=== PATIENT | male | born 1965 | race Caucasian/White ===

== ENCOUNTER 2020-11-03 19:18 | Inpatient (IN) ==
--- NOTE | 2020-11-03 19:38 | Emergency Department Note ---
History of Present Illness General Chief Complaint: Altered Mental Status Stated Complaint: altered mental status Time Seen by Provider: 11/03/20 19:37 Source: patient Mode of arrival: ambulatory Limitations: no limitations History of Present Illness Provider complaint: weakness Onset (ago): week(s) 2 Severity: moderate Consistency of symptoms: getting worse Context: + trauma; no alcohol abuse, no drug abuse, no change in medication, no history of similar presentation, no recent fever, no liver disease or no seizure disorder Associated symptoms: + loss of appetite Treatments prior to arrival: none Home Medications Medication Instructions Recorded Confirmed Type No Known Home Medications 11/03/20 11/03/20 History Allergies Allergy/AdvReac Type Severity Reaction Status Date / Time Unable to Assess Allergy Unverified 11/03/20 20:04 Past Med/Surg History Medical History (Updated 11/04/20 @ 01:18 by Maged Schilling MD) No pertinent past medical history Surgical History (Updated 11/03/20 @ 19:56 by Maged Schilling MD) No pertinent past surgical history Social History (Updated 11/03/20 @ 19:56 by Maged Schilling MD) Smoking Status: Never smoker Second Hand Exposure: No; Do You Dip or Chew Tobacco: No; Hx Alcohol Use: No Hx Substance Use: No Director Of Clinical Education Required: No Beliefs That Will Affect Care: Adventism and Cultural Current Living Situation: Spouse and Family Feels Safe at Home: Yes Safety Concerns: Feels Safe At This Time Assistive Devices: None Review of Systems See HPI for pertinent positives & negatives. and A total of 10 systems reviewed and were otherwise negative Physical Exam Vital Signs Vital Signs - 24 hr 11/03/20 19:32 11/03/20 20:00 11/03/20 20:30 Temperature 37.0 C Temperature Source Oral Pulse Rate 82 78 80 Pulse Rate from SpO2 Sensor 79 80 Respiratory Rate 18 14 19 Blood Pressure 106/71 120/67 114/73 Blood Pressure Mean 82 84 86 Pulse Oximetry 99 99 99 Oxygen Delivery Method Room Air Sepsis Recent Fever Within 48 Hours No Sepsis New/Unexplained Change in Mental Status Yes Sepsis Action Taken by Nursing No Action Required 11/03/20 20:32 11/03/20 21:07 11/03/20 21:30 Temperature Temperature Source Pulse Rate 83 78 Pulse Rate from SpO2 Sensor 78 Respiratory Rate 18 Blood Pressure 108/66 Blood Pressure Mean 80 Pulse Oximetry 99 Oxygen Delivery Method Room Air Sepsis Recent Fever Within 48 Hours Sepsis New/Unexplained Change in Mental Status Sepsis Action Taken by Nursing 11/03/20 22:00 11/03/20 22:30 Temperature Temperature Source Pulse Rate 74 77 Pulse Rate from SpO2 Sensor 74 82 Respiratory Rate 21 26 H Blood Pressure 102/61 99/60 L Blood Pressure Mean 74 73 Pulse Oximetry 98 91 Oxygen Delivery Method Sepsis Recent Fever Within 48 Hours Sepsis New/Unexplained Change in Mental Status Sepsis Action Taken by Nursing GENERAL: Thin in appearance, fatigued in appearance, nontoxic. Bruising noted to the left side of the face. EYE EXAM: Normal conjunctiva. PERRL, no anisocoria and EOM's grossly intact w/o pain. No obvious periorbital edema or proptosis. Face: Age bruising to the left side of the face. Head: No pain to the crown or the occiput. NECK: Supple, no nuchal rigidity, no adenopathy, non-tender. No signs of meningismus. LUNGS: Clear to auscultation. Normal chest wall mechanics. HEART: NSR, no MRG. ABDOMEN: Abdomen soft, significant distention in the lower abdomen. Nontender. BACK: No CVA TTP. SKIN: No rashes and no bruising. UPPER EXTREMITIES: Upper extremities are grossly normal. LOWER EXTREMITIES: Grossly normal, no edema. NEURO EXAM: A&O x3, cranial nerves II-XII grossly intact, slow deliberate speech questionably slurred, moves all 4 extremities on command w/o issue. Course Course Cardiac monitoring: An order was placed for continuous cardiac monitoring. The monitor shows a rate of 82 with sinus rhythm. Administered Medications Discontinued Medications Sodium Chloride (Nss 1000ml) 500 mls @ 999 mls/hr IV .Q31M ONE Stop: 11/03/20 22:49 Last Admin: 11/03/20 23:17 Dose: Not Given Documented by: [id number] Calcium Gluconate () 1,000 mg in 60 mls @ 240 mls/hr IV NOW STA Stop: 11/03/20 22:34 Last Infusion: 11/03/20 23:16 Dose: 0 mls/hr Documented by: [id number] Admin: 11/03/20 22:56 Dose: 240 mls/hr Documented by: [id number] Sodium Chloride (Hypertonic Saline 3%) 100 mls @ 600 mls/hr IV .Q10M ONE Stop: 11/03/20 23:40 Last Infusion: 11/04/20 00:31 Dose: 0 mls/hr Documented by: [id number] Cosigned by: [id number] Admin: 11/04/20 00:16 Dose: 600 mls/hr Documented by: [id number] Cosigned by: [id number] Miscellaneous (Rapid Sequence Induction Bag) Confirm Administered Dose 1 ea .ROUTE .STK-MED ONE Stop: 11/03/20 22:42 Last Admin: 11/04/20 00:08 Dose: Not Given Documented by: [id number] Sodium Bicarbonate (Sodium Bicarb 8.4% Inj 50 Meq/50 Ml Syr) 50 meq IV NOW STA Stop: 11/03/20 22:20 Last Admin: 11/03/20 22:56 Dose: Not Given Documented by: [id number] Medical Decision Making Differential Diagnosis Infection, dehydration, metabolic abnormality, hypo/hyperglycemia, electrolyte disturbance, anemia, hypoxia, cardiac sources, intracerebral event, toxicologic, neurologic, as well as other pathologies. Fracture, dislocation, contusion, intra-abdominal, pneumothorax, intrathoracic, intracranial, neurologic, compartment syndrome, rhabdomyolysis, as well as other pathologies. Medical Records Attestation: I reviewed the patient's medical records. Home Medications Current Medication List: was personally reviewed by me Additional Comments: No at home medications. Laboratory Data Attestation: I reviewed the patient's lab results. : 11/03/20 20:27 11/03/20 22:52 Lab Results 11/03/20 11/03/20 11/03/20 Range/Units 20:00 20:20 20:20 WBC (4.8-10.8) K/uL RBC (4.7-6.1) M/uL Hgb (14.0-18.0) g/dL Hct (42-52) % MCV (80-100) fL MCH (25-34) pg MCHC (32-36) g/dL RDW Std Deviation (36.4-46.3) fL RDW Coeff of Maryanne (11.5-14.5) % Plt Count (130-400) K/uL MPV (7.4-10.4) fL Immature Gran % (Auto) % Neut % (Auto) % Lymph % (Auto) % Sunflower % (Auto) % Eos % (Auto) % Baso % (Auto) % Neut # (Auto) (1.4-6.5) K/uL Lymph # (Auto) (1.2-3.4) K/uL Sunflower # (Auto) (0.11-0.59) K/uL Eos # (Auto) (0-0.5) K/uL Baso # (Auto) (0-0.2) K/uL Immature Gran # (Auto) (0.00-0.02) K/uL Echinocytes PT (9.0-12.0) Seconds INR (0.9-1.1) Sodium (136-145) mmol/L Potassium (3.5-5.1) mmol/L Chloride (98-107) mmol/L Carbon Dioxide (21-32) mmol/L Anion Gap (3-11) BUN (7-18) mg/dl Creatinine (0.6-1.4) mg/dl Est Cr Clr Drug Dosing Est GFR ( Amer) ml/min Est GFR (Non-Af Amer) ml/min BUN/Creatinine Ratio (10-20) Glucose (70-99) mg/dl Osmolality Calcium (8.5-10.1) mg/dl Magnesium (1.8-2.4) mg/dl Total Bilirubin (0.2-1) mg/dl AST (15-37) U/L ALT (12-78) U/L Alkaline Phosphatase (45-117) U/L Troponin I (0-0.045) ng/ml Total Protein (6.4-8.2) gm/dl Albumin (3.4-5.0) gm/dl Globulin (2.5-4.0) gm/dl Albumin/Globulin Ratio (0.9-2) TSH (0.300-4.500) uIu/ml Urine Color Yellow Urine Appearance Clear (Clear) Urine pH 5.0 (4.5-7.5) Ur Specific [place] 1.012 (1.000-1.030) Urine Protein Negative (Negative) Urine Glucose (UA) Negative (Negative) Urine Ketones Trace H (Negative) Urine Blood Negative (Negative) Urine Nitrite Negative (Negative) Urine Bilirubin Negative (Negative) Urine Urobilinogen Negative (Negative) Ur Leukocyte Esterase Negative (Negative) COVID-19 Eval Order Covid19 at [facility] SARS-CoV-2 (PCR) NEGATIVE (Negative) 11/03/20 11/03/20 11/03/20 Range/Units 20:27 20:27 20:35 WBC 13.62 H (4.8-10.8) K/uL RBC 3.79 L (4.7-6.1) M/uL Hgb 12.1 L (14.0-18.0) g/dL Hct 31.2 L (42-52) % MCV 82.3 (80-100) fL MCH 31.9 (25-34) pg MCHC 38.8 H (32-36) g/dL RDW Std Deviation 38.0 (36.4-46.3) fL RDW Coeff of Maryanne 12.5 (11.5-14.5) % Plt Count 228 (130-400) K/uL MPV 8.5 (7.4-10.4) fL Immature Gran % (Auto) 0.4 % Neut % (Auto) 84.3 % Lymph % (Auto) 9.0 % Sunflower % (Auto) 6.2 % Eos % (Auto) 0.0 % Baso % (Auto) 0.1 % Neut # (Auto) 11.50 H (1.4-6.5) K/uL Lymph # (Auto) 1.22 (1.2-3.4) K/uL Sunflower # (Auto) 0.84 H (0.11-0.59) K/uL Eos # (Auto) 0.00 (0-0.5) K/uL Baso # (Auto) 0.01 (0-0.2) K/uL Immature Gran # (Auto) 0.05 H (0.00-0.02) K/uL Echinocytes 1+ PT (9.0-12.0) Seconds INR (0.9-1.1) Sodium 116 L* (136-145) mmol/L Potassium 2.9 L (3.5-5.1) mmol/L Chloride 78 L (98-107) mmol/L Carbon Dioxide 25 (21-32) mmol/L Anion Gap 13.0 H (3-11) BUN 9 (7-18) mg/dl Creatinine 0.32 L (0.6-1.4) mg/dl Est Cr Clr Drug Dosing Not Reportable Est GFR ( Amer) > 150.0 ml/min Est GFR (Non-Af Amer) 145.5 ml/min BUN/Creatinine Ratio 28.3 H (10-20) Glucose 87 (70-99) mg/dl Osmolality Cancelled Calcium 7.0 L (8.5-10.1) mg/dl Magnesium 1.8 (1.8-2.4) mg/dl Total Bilirubin 1.3 H (0.2-1) mg/dl AST 271 H (15-37) U/L ALT 174 H (12-78) U/L Alkaline Phosphatase 48 (45-117) U/L Troponin I < 0.015 (0-0.045) ng/ml Total Protein 5.3 L (6.4-8.2) gm/dl Albumin 2.7 L (3.4-5.0) gm/dl Globulin 2.6 (2.5-4.0) gm/dl Albumin/Globulin Ratio 1.0 (0.9-2) TSH 1.070 (0.300-4.500) uIu/ml Urine Color Urine Appearance (Clear) Urine pH (4.5-7.5) Ur Specific [place] (1.000-1.030) Urine Protein (Negative) Urine Glucose (UA) (Negative) Urine Ketones (Negative) Urine Blood (Negative) Urine Nitrite (Negative) Urine Bilirubin (Negative) Urine Urobilinogen (Negative) Ur Leukocyte Esterase (Negative) COVID-19 Eval Order SARS-CoV-2 (PCR) (Negative) 11/03/20 11/03/20 11/03/20 Range/Units 22:50 22:51 22:52 WBC (4.8-10.8) K/uL RBC (4.7-6.1) M/uL Hgb (14.0-18.0) g/dL Hct (42-52) % MCV (80-100) fL MCH (25-34) pg MCHC (32-36) g/dL RDW Std Deviation (36.4-46.3) fL RDW Coeff of Maryanne (11.5-14.5) % Plt Count (130-400) K/uL MPV (7.4-10.4) fL Immature Gran % (Auto) % Neut % (Auto) % Lymph % (Auto) % Sunflower % (Auto) % Eos % (Auto) % Baso % (Auto) % Neut # (Auto) (1.4-6.5) K/uL Lymph # (Auto) (1.2-3.4) K/uL Sunflower # (Auto) (0.11-0.59) K/uL Eos # (Auto) (0-0.5) K/uL Baso # (Auto) (0-0.2) K/uL Immature Gran # (Auto) (0.00-0.02) K/uL Echinocytes PT 10.8 (9.0-12.0) Seconds INR 1.1 (0.9-1.1) Sodium 114 L* (136-145) mmol/L Potassium 3.0 L (3.5-5.1) mmol/L Chloride 75 L (98-107) mmol/L Carbon Dioxide 30 (21-32) mmol/L Anion Gap 10.0 (3-11) BUN 9 (7-18) mg/dl Creatinine 0.53 L (0.6-1.4) mg/dl Est Cr Clr Drug Dosing Not Reportable Est GFR ( Amer) 137.1 ml/min Est GFR (Non-Af Amer) 118.3 ml/min BUN/Creatinine Ratio 16.1 (10-20) Glucose 98 (70-99) mg/dl Osmolality 237 L* Calcium 7.8 L (8.5-10.1) mg/dl Magnesium (1.8-2.4) mg/dl Total Bilirubin (0.2-1) mg/dl AST (15-37) U/L ALT (12-78) U/L Alkaline Phosphatase (45-117) U/L Troponin I (0-0.045) ng/ml Total Protein (6.4-8.2) gm/dl Albumin (3.4-5.0) gm/dl Globulin (2.5-4.0) gm/dl Albumin/Globulin Ratio (0.9-2) TSH (0.300-4.500) uIu/ml Urine Color Urine Appearance (Clear) Urine pH (4.5-7.5) Ur Specific [place] (1.000-1.030) Urine Protein (Negative) Urine Glucose (UA) (Negative) Urine Ketones (Negative) Urine Blood (Negative) Urine Nitrite (Negative) Urine Bilirubin (Negative) Urine Urobilinogen (Negative) Ur Leukocyte Esterase (Negative) COVID-19 Eval Order SARS-CoV-2 (PCR) (Negative) Imaging Data Radiologist's Impression: Chest X-Ray 11/03/20 19:52 XR chest 1V portable CLINICAL HISTORY: weakness COMPARISON STUDY: No previous studies for comparison. FINDINGS: No pneumothorax. No pleural effusion. No large infiltrates or consolidative lesions are seen. Cardiac silhouette is within normal limits in size. There is questionable focal widening of the mediastinum at the region of the right hilum which could be due to tortuous aorta versus other etiology. No significant pulmonary vascular congestion.. Aorta is calcified Osseous structures: Mild degenerative changes of the spine. IMPRESSION: 1. No large infiltrates or consolidative lesions are seen, however there is questionable prominence of the mediastinum at the region of the right hilum which could be due to aortic tortuosity however mediastinal lymphadenopathy/mass cannot be completely ruled out. Further evaluation with CT of the chest is sug gested. ACT 112: Negative or not required by law. The above report was generated using voice recognition software. It may contain grammatical, syntax or spelling errors. Electronically signed by: Keren Dixon DO 11/03/2020 8:[address] head with no mass hemorrhage or acute infarct. CT cervical spine no acute findings. CT facial Soft tissue trauma with sinus disease. ECG Data Attestation: I personally reviewed and interpreted this ECG as follows: Additional Comments: Normal sinus rhythm, rate of 73, normal GA QRS, prolonged QTC, normal axis, T WI in V2, peaked T's anteriorly and laterally. MDM Narrative Patient was seen due to concern for increasing weakness and recurrence of falls. The patient denies any current pain at this time. The patient denies any fevers chills chest pain shortness of breath extremity head neck back or body pain. The patient states that he has not been having any issues defecation or urination. The patient was significantly distended in the lower abdomen. I did asked nursing staff to obtain a bladder scan the patient is retaining 1900 cc. Holder was placed. Blood work obtained. Patient did have CT of the head neck and face completed as the patient does have bruising to left side of the face and has had a recurrence of falls per the patient's sister who is at bedside. Patient did have point time getting his blood work returned as there was an issue with the lab obtaining chemistries. I was called about patient sodium of 116. The patient did have low potassium and chloride as well. The patient was ordered bicarb and normal saline along with urine and serum awesome's and urine electrolytes. Patient does have transaminitis. The patient has had significant urine output. I was notified by nursing about concern about the patient's mental status and respiratory status. On presentation the patient is arousable to voice and does follow commands. The patient does have significant saliva which was removed with suctioning and with the patient spitting. Patient appea rs to be maintaining his airway at this time do not believe patient requires emergent intubation. The patient does follow basic commands. The patient was placed on 2 L nasal cannula. I did speak with the on-call hospitalist Dr. Zaragoza of the inpatient service. Subsequently did speak with Marc Monroe PA-C with the intensive care unit. Impression & Plan Hyponatremia, Altered mental status, Weakness, Acute urinary retention Critical Care Time Critical Care Time: Yes Total Critical Care Time: 95 Critical Care: I have personally spent 95 minutes of critical care time in direct management of this patient. This includes bedside care, interpretation of diagnostic studies, and testing, discussion with consultants, patient, and family members, and other require inpatient management activities. This 95 minutes is in excess of all separately billable procedures. Discharge Plan Visit Data Chief Complaint: Altered Mental Status Stated Complaint: altered mental status ED Provider: Maged Schilling Discharge Problem: Hyponatremia, Altered mental status, Weakness, Acute urinary retention Patient Disposition: Admitted As Inpatient Discharge Instructions Interventions: ED Discharge Assessment Last Done: 11/03/20 23:35
[2020-11-03 20:20] LABS: Appearance Urine Clear (Clear); Bilirubin Urine Negative (Negative); Blood Urine Negative (Negative); Color Urine Yellow; Glucose Urine UA Negative (Negative); Ketones Urine Trace (Negative); Leukocyte Esterase Urine Negative (Negative); Nitrite Urine Negative (Negative); Protein Urine Negative (Negative); Specific Gravity Urine 1.012 (1.000-1.030); Urobilinogen Urine Negative (Negative)
--- NOTE | 2020-11-03 20:52 | XRay Report ---
XR chest 1V portable CLINICAL HISTORY: weakness COMPARISON STUDY: No previous studies for comparison. FINDINGS: No pneumothorax. No pleural effusion. No large infiltrates or consolidative lesions are seen. Cardiac silhouette is within normal limits in size. There is questionable focal widening of the media stinum at the region of the right hilum which could be due to tortuous aorta versus other etiology. No significant pulmonary vascular congestion.. Aorta is calcified Osseous structures: Mild degenerative changes of the spine. IMPRESSION: 1. No large infiltrates or consolidative lesions are seen, however there is questionable prominence of the mediastinum at the region of the right hilum which could be due to aortic tortuosity however m ediastinal lymphadenopathy/mass cannot be completely ruled out. Further evaluation with CT of the [address] is suggested. ACT 112: Negative or not required by law. The above report was generated using voice recognition software. It may contain grammatical, syntax o r spelling errors. Electronically signed by: Keren Dixon DO 11/03/2020 8:51 PM
[2020-11-03 21:59] LABS: Alanine Aminotransferase 174 U/L (12-78); Albumin Level 2.7 gm/dl (3.4-5.0); Alkaline Phosphatase 48 U/L (45-117); Aspartate Aminotransferase 271 U/L (15-37); BUN Creatinine Ratio 28.3 (10-20); Bilirubin,Total 1.3 mg/dl (0.2-1); Blood Urea Nitrogen 9 mg/dl (7-18); Carbon Dioxide 25 mmol/L (21-32); Chloride 78 mmol/L (98-107); Est GFR (African American) > 150.0 ml/min; Est GFR (Non-African American) 145.5 ml/min; Globulin 2.6 gm/dl (2.5-4.0); Glucose 87 mg/dl (70-99); Potassium 2.9 mmol/L (3.5-5.1); Sodium 116 mmol/L (136-145); Total Protein 5.3 gm/dl (6.4-8.2); Troponin I < 0.015 ng/ml (0-0.045)
[2020-11-03] MEDS ORDERED: SODIUM CHLORIDE 0.9% 1000ML 500 ML IV ONE (22:19)
[2020-11-03] MEDS ORDERED: SODIUM BICARB 8.4% INJ 50 MEQ/50 ML SYR IV STA (22:19)
[2020-11-03] MEDS ORDERED: CALCIUM GLUCONATE 1,000 MG/60 ML BAG IV STA (22:20)
[2020-11-03 22:26] LABS: Hematocrit (blood only) 31.2 % (42-52); Hemoglobin 12.1 g/dL (14.0-18.0); Mean Corpuscular Hemoglobin 31.9 pg (25-34); Mean Corpuscular Hgb Conc 38.8 g/dL (32-36); Mean Corpuscular Volume 82.3 fL (80-100); Mean Platelet Volume 8.5 fL (7.4-10.4); Platelet Count 228 K/uL (130-400); RDW Coefficient of Variation 12.5 % (11.5-14.5); Red Blood Count 3.79 M/uL (4.7-6.1); White Blood Count 13.62 K/uL (4.8-10.8)
[2020-11-03] MEDS ORDERED: RAPID SEQUENCE INDUCTION BAG ONE (22:41)
[2020-11-03 22:48] LABS: Basophils # (auto) 0.01 K/uL (0-0.2); Basophils % (auto) 0.1 %; Echinocytes 1+; Immature Granulocytes # (auto) 0.05 K/uL (0.00-0.02); Immature Granulocytes % (auto) 0.4 %; Lymphocytes # (auto) 1.22 K/uL (1.2-3.4); Monocytes # (auto) 0.84 K/uL (0.11-0.59); Monocytes % (auto) 6.2 %; Neutrophils % (auto) 84.3 %
[2020-11-03 22:53] LABS: Magnesium 1.8 mg/dl (1.8-2.4)
--- NOTE | 2020-11-03 23:03 | History & Physical Report ---
Date of Service November 03, 2020 Assessment & Plan (1) Altered mental status: Plan: Yobani Chase 55y/o male with unknown past medical history; who presents following a fall with altered mental status and severe hyponatremia. Altered mental status: -likely secondary to severe hyponatremia -received 500cc NSS bolus in transportation to ED -2L urine output on arrival to ED -initial Na 116 -repeat after 2 hours of 114 -serum Osm pending -urine osm 139 -ordered 100mL of hypertonic saline -CXR demonstrated questionable prominent mediastinum potentially concerning for mediastinal mass -after stabilization of electrolytes consideration of CT Chest -concern for underlying oncologic process that could be further generating/worsening of his hyponatremia -will admit to ICU given significant concerns for altered mental status and need for close observation -recheck BMPs q4h -monitor urine output regularly -DDAVP 1mcg q6h PRN available if starting to over correction or if urine output greater than 200cc/hr CODE STATUS: Full Code (2) Hyponatremia: History of Present Illness Primary Care Provider: NO PCP Yobani Chase 55y/o male with unknown past medical history; who presents following a fall with altered mental status and severe hyponatremia. Per report from family, patient had been apparently fasting over the last two weeks "in attempt to detoxify his body"; he reportedly has done this before and at times when he does this he will consume juices and water but over this last two weeks he had not been seen or talked to his family until Monday of last week when he told them he was starting to feel unwell. They did not further know or clarify what was going on that caused him to feel unwell. In the ED he continued to be lethargic and sedate with arousability to painful stimuli. Was able to complete some sentences prior to falling back to sleep but these were somewhat incoherent. Discussed code status with family at bedside, who indicated they have no knowledge of what his wishes would be but belief he would want everything done. Allergies Allergy/AdvReac Type Severity Reaction Status Date / Time Unable to Assess Allergy Unverified 11/03/20 20:04 Home Medications Medication Instructions Recorded Confirmed Type No Known Home Medications 11/03/20 11/03/20 History Past Med/Surg History Medical History (Updated 11/04/20 @ 01:18 by Maged Schilling MD) No pertinent past medical history Surgical History (Updated 11/03/20 @ 19:56 by Maged Schilling MD) No pertinent past surgical history Social History (Updated 11/03/20 @ 19:56 by Maged Schilling MD) Smoking Status: Never smoker Second Hand Exposure: No; Do You Dip or Chew Tobacco: No; Hx Alcohol Use: No Hx Substance Use: No Fashion Supervisor Required: No Beliefs That Will Affect Care: Shinto and Cultural Current Living Situation: Spouse and Family Feels Safe at Home: Yes Safety Concerns: Feels Safe At This Time Assistive Devices: None Review of Systems Review of Systems: Unobtainable due to reduced consciousness Physical Exam Constitutional: + thin, + altered mental status, + disheveled and + lethargic jaundiced Eyes: PERRL; no retinal abnormality, no alignment abnormality and no position abnormality ENMT: Nose: + dry nasal mucous membranes Mouth: + dry oral mucous membranes Respiratory: normal respiratory effort; no respiratory distress, no labored breathing and no retractions Auscultation: no crackles, no rales and no wheezes Cardiovascular: Rate/Rhythm: regular rate and regular rhythm Heart Sounds: no gallop, no murmur and no cardiac rub Vessels: normal peripheral pulses Extremities: no pedal edema Gastrointestinal (Abdomen): normal bowel sounds, soft, nontender, no hepatosplenomegaly Skin: + skin tightening and + jaundice; turgor not decreased Neurologic: moves all extremities, awake and + confused Speech / Cognition: + abnormal cognition Motor/Sensory: no tremor, no fasciculations and no asterixis Cranial Nerves: PERRL, normal accommodation and EOM intact bilaterally Psychiatric: Orientation: alert and cooperative; + not oriented to person, + not oriented to place and + not oriented to time Lymphatic: no cervical or axillary lymphadenopathy Results & Data Results & Data ([facility]) Vital Signs (Past 12 Hours) Vital Signs Temp Pulse Resp BP Pulse Ox 11/03/20 21:30 78 18 108/66 99 11/03/20 21:07 83 11/03/20 20:30 80 19 114/73 99 11/03/20 20:00 78 14 120/67 99 11/03/20 19:32 37.0 C 82 18 106/71 99 Laboratory Results 11/03/20 11/03/20 11/03/20 Range/Units Unknown Unknown 22:52 WBC (4.8-10.8) K/uL RBC (4.7-6.1) M/uL Hgb (14.0-18.0) g/dL Hct (42-52) % MCV (80-100) fL MCH (25-34) pg MCHC (32-36) g/dL RDW Std Deviation (36.4-46.3) fL RDW Coeff of Maryanne (11.5-14.5) % Plt Count (130-400) K/uL MPV (7.4-10.4) fL Immature Gran % (Auto) % Neut % (Auto) % Lymph % (Auto) % [place] % (Auto) % Eos % (Auto) % Baso % (Auto) % Neut # (Auto) (1.4-6.5) K/uL Lymph # (Auto) (1.2-3.4) K/uL [place] # (Auto) (0.11-0.59) K/uL Eos # (Auto) (0-0.5) K/uL Baso # (Auto) (0-0.2) K/uL Immature Gran # (Auto) (0.00-0.02) K/uL Echinocytes Sodium Pending (136-145) mmol/L Potassium Pending (3.5-5.1) mmol/L Chloride Pending (98-107) mmol/L Carbon Dioxide Pending (21-32) mmol/L Anion Gap Pending (3-11) BUN Pending (7-18) mg/dl Creatinine Pending (0.6-1.4) mg/dl Est Cr Clr Drug Dosing Pending Est GFR ( Amer) Pending ml/min Est GFR (Non-Af Amer) Pending ml/min BUN/Creatinine Ratio Pending (10-20) Glucose Pending (70-99) mg/dl Osmolality Calcium Pending (8.5-10.1) mg/dl Magnesium (1.8-2.4) mg/dl Total Bilirubin (0.2-1) mg/dl AST (15-37) U/L ALT (12-78) U/L Alkaline Phosphatase (45-117) U/L Troponin I (0-0.045) ng/ml Total Protein (6.4-8.2) gm/dl Albumin (3.4-5.0) gm/dl Globulin (2.5-4.0) gm/dl Albumin/Globulin Ratio (0.9-2) TSH (0.300-4.500) uIu/ml Urine Color Urine Appearance (Clear) Urine pH (4.5-7.5) Ur Specific [place] (1.000-1.030) Urine Protein (Negative) Urine Glucose (UA) (Negative) Urine Ketones (Negative) Urine Blood (Negative) Urine Nitrite (Negative) Urine Bilirubin (Negative) Urine Urobilinogen (Negative) Ur Leukocyte Esterase (Negative) Urine Osmolality Pending Urine Sodium Pending Urine Potassium Pending Urine Chloride Pending COVID-19 Eval Order SARS-CoV-2 (PCR) (Negative) 11/03/20 11/03/20 11/03/20 Range/Units 22:50 20:35 20:27 WBC (4.8-10.8) K/uL RBC (4.7-6.1) M/uL Hgb (14.0-18.0) g/dL Hct (42-52) % MCV (80-100) fL MCH (25-34) pg MCHC (32-36) g/dL RDW Std Deviation (36.4-46.3) fL RDW Coeff of Maryanne (11.5-14.5) % Plt Count (130-400) K/uL MPV (7.4-10.4) fL Immature Gran % (Auto) % Neut % (Auto) % Lymph % (Auto) % [place] % (Auto) % Eos % (Auto) % Baso % (Auto) % Neut # (Auto) (1.4-6.5) K/uL Lymph # (Auto) (1.2-3.4) K/uL [place] # (Auto) (0.11-0.59) K/uL Eos # (Auto) (0-0.5) K/uL Baso # (Auto) (0-0.2) K/uL Immature Gran # (Auto) (0.00-0.02) K/uL Echinocytes Sodium 116 L* (136-145) mmol/L Potassium 2.9 L (3.5-5.1) mmol/L Chloride 78 L (98-107) mmol/L Carbon Dioxide 25 (21-32) mmol/L Anion Gap 13.0 H (3-11) BUN 9 (7-18) mg/dl Creatinine 0.32 L (0.6-1.4) mg/dl Est Cr Clr Drug Dosing Not Reportable Est GFR ( Amer) > 150.0 ml/min Est GFR (Non-Af Amer) 145.5 ml/min BUN/Creatinine Ratio 28.3 H (10-20) Glucose 87 (70-99) mg/dl Osmolality Pending Cancelled Calcium 7.0 L (8.5-10.1) mg/dl Magnesium 1.8 (1.8-2.4) mg/dl Total Bilirubin 1.3 H (0.2-1) mg/dl AST 271 H (15-37) U/L ALT 174 H (12-78) U/L Alkaline Phosphatase 48 (45-117) U/L Troponin I < 0.015 (0-0.045) ng/ml Total Protein 5.3 L (6.4-8.2) gm/dl Albumin 2.7 L (3.4-5.0) gm/dl Globulin 2.6 (2.5-4.0) gm/dl Albumin/Globulin Ratio 1.0 (0.9-2) TSH 1.070 (0.300-4.500) uIu/ml Urine Color Urine Appearance (Clear) Urine pH (4.5-7.5) Ur Specific [place] (1.000-1.030) Urine Protein (Negative) Urine Glucose (UA) (Negative) Urine Ketones (Negative) Urine Blood (Negative) Urine Nitrite (Negative) Urine Bilirubin (Negative) Urine Urobilinogen (Negative) Ur Leukocyte Esterase (Negative) Urine Osmolality Urine Sodium Urine Potassium Urine Chloride COVID-19 Eval Order SARS-CoV-2 (PCR) (Negative) 11/03/20 11/03/20 11/03/20 Range/Units 20:27 20:20 20:20 WBC 13.62 H (4.8-10.8) K/uL RBC 3.79 L (4.7-6.1) M/uL Hgb 12.1 L (14.0-18.0) g/dL Hct 31.2 L (42-52) % MCV 82.3 (80-100) fL MCH 31.9 (25-34) pg MCHC 38.8 H (32-36) g/dL RDW Std Deviation 38.0 (36.4-46.3) fL RDW Coeff of Maryanne 12.5 (11.5-14.5) % Plt Count 228 (130-400) K/uL MPV 8.5 (7.4-10.4) fL Immature Gran % (Auto) 0.4 % Neut % (Auto) 84.3 % Lymph % (Auto) 9.0 % [place] % (Auto) 6.2 % Eos % (Auto) 0.0 % Baso % (Auto) 0.1 % Neut # (Auto) 11.50 H (1.4-6.5) K/uL Lymph # (Auto) 1.22 (1.2-3.4) K/uL [place] # (Auto) 0.84 H (0.11-0.59) K/uL Eos # (Auto) 0.00 (0-0.5) K/uL Baso # (Auto) 0.01 (0-0.2) K/uL Immature Gran # (Auto) 0.05 H (0.00-0.02) K/uL Echinocytes 1+ Sodium (136-145) mmol/L Potassium (3.5-5.1) mmol/L Chloride (98-107) mmol/L Carbon Dioxide (21-32) mmol/L Anion Gap (3-11) BUN (7-18) mg/dl Creatinine (0.6-1.4) mg/dl Est Cr Clr Drug Dosing Est GFR ( Amer) ml/min Est GFR (Non-Af Amer) ml/min BUN/Creatinine Ratio (10-20) Glucose (70-99) mg/dl Osmolality Calcium (8.5-10.1) mg/dl Magnesium (1.8-2.4) mg/dl Total Bilirubin (0.2-1) mg/dl AST (15-37) U/L ALT (12-78) U/L Alkaline Phosphatase (45-117) U/L Troponin I (0-0.045) ng/ml Total Protein (6.4-8.2) gm/dl Albumin (3.4-5.0) gm/dl Globulin (2.5-4.0) gm/dl Albumin/Globulin Ratio (0.9-2) TSH (0.300-4.500) uIu/ml Urine Color Urine Appearance (Clear) Urine pH (4.5-7.5) Ur Specific [place] (1.000-1.030) Urine Protein (Negative) Urine Glucose (UA) (Negative) Urine Ketones (Negative) Urine Blood (Negative) Urine Nitrite (Negative) Urine Bilirubin (Negative) Urine Urobilinogen (Negative) Ur Leukocyte Esterase (Negative) Urine Osmolality Urine Sodium Urine Potassium Urine Chloride COVID-19 Eval Order Cov[facility]19 at [facility] SARS-CoV-2 (PCR) NEGATIVE (Negative) 11/03/20 Range/Units 20:00 WBC (4.8-10.8) K/uL RBC (4.7-6.1) M/uL Hgb (14.0-18.0) g/dL Hct (42-52) % MCV (80-100) fL MCH (25-34) pg MCHC (32-36) g/dL RDW Std Deviation (36.4-46.3) fL RDW Coeff of Maryanne (11.5-14.5) % Plt Count (130-400) K/uL MPV (7.4-10.4) fL Immature Gran % (Auto) % Neut % (Auto) % Lymph % (Auto) % [place] % (Auto) % Eos % (Auto) % Baso % (Auto) % Neut # (Auto) (1.4-6.5) K/uL Lymph # (Auto) (1.2-3.4) K/uL [place] # (Auto) (0.11-0.59) K/uL Eos # (Auto) (0-0.5) K/uL Baso # (Auto) (0-0.2) K/uL Immature Gran # (Auto) (0.00-0.02) K/uL Echinocytes Sodium (136-145) mmol/L Potassium (3.5-5.1) mmol/L Chloride (98-107) mmol/L Carbon Dioxide (21-32) mmol/L Anion Gap (3-11) BUN (7-18) mg/dl Creatinine (0.6-1.4) mg/dl Est Cr Clr Drug Dosing Est GFR ( Amer) ml/min Est GFR (Non-Af Amer) ml/min BUN/Creatinine Ratio (10-20) Glucose (70-99) mg/dl Osmolality Calcium (8.5-10.1) mg/dl Magnesium (1.8-2.4) mg/dl Total Bilirubin (0.2-1) mg/dl AST (15-37) U/L ALT (12-78) U/L Alkaline Phosphatase (45-117) U/L Troponin I (0-0.045) ng/ml Total Protein (6.4-8.2) gm/dl Albumin (3.4-5.0) gm/dl Globulin (2.5-4.0) gm/dl Albumin/Globulin Ratio (0.9-2) TSH (0.300-4.500) uIu/ml Urine Color Yellow Urine Appearance Clear (Clear) Urine pH 5.0 (4.5-7.5) Ur Specific [place] 1.012 (1.000-1.030) Urine Protein Negative (Negative) Urine Glucose (UA) Negative (Negative) Urine Ketones Trace H (Negative) Urine Blood Negative (Negative) Urine Nitrite Negative (Negative) Urine Bilirubin Negative (Negative) Urine Urobilinogen Negative (Negative) Ur Leukocyte Esterase Negative (Negative) Urine Osmolality Urine Sodium Urine Potassium Urine Chloride COVID-19 Eval Order SARS-CoV-2 (PCR) (Negative) Diagnostic Findings CT HEAD: No mass, hemorrhage or acute infarct. Trace fluid in the right maxillary sinus. Mastoids are clear. Left periorbital soft tissue contusion. No acute findings in the bones. Impression: No acute intracranial findings. Soft tissue trauma. Sinus disease. Radiologist: Omi Higginbotham M.D. ------- CT C SPINE: Impaired osteophytes and facet arthropathy. No fracture or dislocation. Mild canal narrowing at the C5-C6 level. Lung apices are clear. Soft tissue structures unremarkable. Impression: No acute findings. Radiologist: Omi Higginbotham M.D. -- CT FACIAL: Small amount of fluid in the right maxillary sinus. Orbital structures are intact. No fracture or dislocation. Nasal bones intact. Left periorbital contusion. Degenerative changes of the TMJs. The patient is edentulous. Impression: Soft tissue trauma. Sinus disease. Radiologist: Omi Higginbotham M.D. Chest X-Ray 11/03/20 19:52 XR chest 1V portable CLINICAL HISTORY: weakness COMPARISON STUDY: No previous studies for comparison. FINDINGS: No pneumothorax. No pleural effusion. No large infiltrates or consolidative lesions are seen. Cardiac silhouette is within normal limits in size. There is questionable focal widening of the mediastinum at the region of the right hilum which could be due to tortuous aorta versus other etiology. No significant pulmonary vascular congestion.. Aorta is calcified Osseous structures: Mild degenerative changes of the spine. IMPRESSION: 1. No large infiltrates or consolidative lesions are seen, however there is questionable prominence of the mediastinum at the region of the right hilum which could be due to aortic tortuosity however mediastinal lymphadenopathy/mass cannot be completely ruled out. Further evaluation with CT of the chest is suggested. ACT 112: Negative or not required by law. The above report was generated using voice recognition software. It may contain grammatical, syntax or spelling errors. Electronically signed by: Keren Dixon DO 11/03/2020 8:51 PM Supervising Physician Co-Signing Physician Notes Patient seen and examined, chart reviewed, case discussed with Dr. Umanzor and I agree with his assessment and plan as above. Briefly, patient is a 55yo male with unknown past medical history brought in by family after a fall at home and AMS. Patient found with severe hyponatremia - Pe=425, unknown baseline. Per family he has been fasting for the last two weeks. On exam he is afebrile, HD stable. Cachectic and ill in appearance. Somnolent but arousable - able to state name and location, uncertain of date, unable to provide details of events prior to arrival. He follows commands. Skin - thin, extensive bruising left forehead and eye, +jaundice HEENT - Neck supple, dry MM, PERRL, EOMI, facial contusion as above Heart - +S1/S2, regular, no m/r/g Lungs - coarse breath sounds anteriorly Abd - +BS, soft, NT/ND Ext - +edema 2+ pitting to knees Neuro - somnolent, oriented x 2, follows commands Labs and images reviewed WBC=13.62 Hgb=12.1, Hct=31.2 Wl=533 --> 114 --> 116 K=3 Cl=78 Serum Osmolality low at 237 Urine osmolality low at 139 Urine Na = 11 CXR with mediastinal fullness, ?mass Assessment/Plan - 55yo male with unknown past medical history presenting with fall, AMS. Found to have severe hyponatremia with Io=488. Patient was given 500mL of NSS in the ER. Holder placed and he has had nearly 3L UOP Hypotonic, hypovolemic hyponatremia with symptoms of somnolence and confusion -Admit to MICU -Administerd 3% Saline 100mL x 1 with repeat Na to 116. Will repeat 100mL of 3% saline then infuse at 1-2mL/kg/hr. Goal to increase Na by 6-8 meq/L over 24 hours -Monitor Na q 2 hours -Monitor symptoms -Remainder of plan as above Resident Activity Tracking Resident Involvement: Resident Care Provided Care Provided: Adult Hospital Medicine
[2020-11-03 23:26] LABS: INR 1.1 (0.9-1.1); Prothrombin Time 10.8 Seconds (9.0-12.0)
[2020-11-03 23:29] LABS: BUN Creatinine Ratio 16.1 (10-20); Blood Urea Nitrogen 9 mg/dl (7-18); Calcium 7.8 mg/dl (8.5-10.1); Carbon Dioxide 30 mmol/L (21-32); Chloride 75 mmol/L (98-107); Est GFR (African American) 137.1 ml/min; Est GFR (Non-African American) 118.3 ml/min; Glucose 98 mg/dl (70-99); Sodium 114 mmol/L (136-145)
[2020-11-03] MEDS ORDERED: SODIUM CHLORIDE 3 % 100 ML IV ONE (23:31)
[2020-11-03 23:39] LABS: Urine Chloride < 10 mmol/L; Urine Potassium 8.1 mmol/L; Urine Sodium 11 mmol/L
[2020-11-04] MEDS ORDERED: DESMOPRESSIN ACETATE 1 MCG in SODIUM CHLORIDE 0.9% 50 ML IV PRN (00:15)
[2020-11-04] MEDS ORDERED: ICU PROTOCOL FOR HYPERGLYCEMIA PRN (00:15)
--- NOTE | 2020-11-04 00:45 | Critical Care Consultation ---
Date of Consultation November 04, 2020 Assessment & Plan (1) Admitted to intensive care unit: Reason Critically Ill: 55-year-old male with altered mental status in the setting of profound hyponatremia requiring close laboratory monitoring with frequent sodium level assessments and changes to be made based on correction. NEURO - * CAM ICU: POSITIVE * Altered mental status: * Likely secondary to hyponatremia. Please see RENAL/LYTES. * CT head/face/neck unremarkable. * Somnolent but wakes to answer some simple questions. * Generally weak appearing. * No focal neurological findings on exam. * Monitor for improvement s/p Na correction. CARDIAC/VASCULAR - * No known h/o cardiovascular disease. * EKG: NSR @ [address]/T-wave changes noted. QTc 493 ms. * Monitor on telemetry. RESPIRATORY - * Hypoxia: * Currently requiring 2L NC. * Without tachypnea. * Patient w/ cough productive of sputum. GI/NUTRITION - * NPO pending mental status improving. RENAL/LYTES - * Hyponatremia: * Patient presents w/ AMS in the setting of Na of 116. * Received ~750mL NSS en route to the ED. * Patient dumped ~2800 mL of urine s/p Holder placement. There was concerns for autodiuresis. Further Rx held. * Repeat Na dropped to 114. * Received 100 mL hypertonic saline. * Will trend sodium levels overnight w/ PRP q2h. * Adjust IVF/Rx per patient response to therapy. * Patient appears Euvolemic to slightly dry on exam. * Contributions include severe malnutrition and increase free water intake. * Will check Random Cortisol. * Thyroid studies wnl. * Patient did required 2nd 100 mL bolus of hypertonic saline. Repeat labs showed drop in sodium levels again. At this point, the patient had received 750 mL NSS, 200 mL Hypertonic saline. I did elect to reach out to nephrology for further guidance in this complex patient. Dr. Palacios recommends repeating another 100 mL Hypertonic bolus. We will also continue the drip at a rate of 40 mL/hr. He agrees with treating ??adrenal insufficiency w/ stress dose steroids. He recommends antibiotic coverage in the interim until patient further declares himself. - * Urinary Retention: * Patient noted to have >2000 mL urine on bladder scan. Drained 2800 mL urine s/p Holder placement. * Holder in place - Strict I&Os. ENDO - * No h/o DM or Thyroid Dz * BSGs per unit protocol. ISS --> gtt per unit policy. HEME - * Stable H&H ID - * No overt s/s infectious contribution. * Patient is with cough. * Unknown if s/s of diarrheal illness. * Will check Legionella given presenting s/s and associated labs (i.e. Leukocytosis, elevated LFTs, hyponatremia, cough) * Will check PCT LINES/IV ACCESS - * PIVs x2 * Holder DVT PROPHYLAXIS - * SCDs I have personally spent 55 minutes of critical care time in the direct management of this patient. This is a life/limb threatening event. This includes time spent evaluating patient, direct bedside care, chart review, placing order s, interpretation of diagnostic studies, discussion with consultants, patient, and family members, as well as other required patient management activities. This time is exclusive of all separately billable procedures, and teaching time and separate from and in addition to any other critical care service time. Thank you for allowing us to participate in the care of this patient. Please refer to my attending physician's documentation for any further recommendations. (2) Hyponatremia: (3) Altered mental status: (4) Weakness: (5) Acute urinary retention: (6) Hypokalemia: History of Present Illness Attending Physician: Jocy Zaragoza DO History of Present Illness Patient is a 55-year-old male with no significant past medical history reported that presented to the emergency department earlier this evening with complaints of altered mental status and generalized weakness. Per discussion with providers and documentation review, it is stated that the patient had been fasting for 1 to 2 weeks. Additionally, there is nursing documentation that reports the patient has only been drinking water over this timeframe. Patient was brought to the emergency department after his family found him to be weak and confused. Patient had bruising to the LEFT-sided face/orbital area. Unable to communicate recent fall or trauma. Patient was found to be significantly hyponatremic with a sodium of 116. The patient had received approximately 750 mL of normal saline between prehospital and in the emergency department. Bladder scan was performed and the patient was found to have greater than 2 L of urine in his bladder. After Holder catheter insertion, the patient had an output of 2800 mL of urine. Calcium was replaced. Repeat PRP concerning for drop in sodium to 116. 100 mL bolus of 3% hypertonic saline ordered by hospitalist staff. Patient transferred to the ICU for ongoing management. Upon evaluation in the emergency department, the patient is somnolent, but does awaken. Provides limited history. Denies complaints of pain. 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 GENERAL - 55-year-old cachectic appearing male appearing older than his stated age who is in no acute distress. Somnolent, but wakes to answer simple questions. SKIN - Ecchymosis noted to the LEFT periorbital area. HEAD - NC/AT. EYES - PERRL with EOMI bilaterally. Sclera anicteric. Palpebral conjunctiva pink and moist with no injection noted. EARS - No deformities of external structures noted on gross examination bilaterally. NOSE - Midline and without cyanosis. No epistaxis or purulent drainage noted. MOUTH/OROPHARYNX - Without perioral cyanosis. Buccal mucosa pink and dry. Tongue midline with equal elevation of palate bilaterally. Edentulous. NECK - Neck with FROM. Supple to palpation. No lymphadenopathy noted. No nuchal rigidity. LUNGS - Chest wall symmetric without accessory muscle use, intercostals retractions, or central cyanosis. Coarse breath sounds appreciated at the bases bilaterally. CARDIAC - RRR with S1/S2. No murmur, rubs, or gallops appreciated. ABDOMEN - Abdominal contour flat without pulsations or visible masses. BS normoactive all four quadrants. No tenderness, palpable masses, hepatosplenomegaly, or ascites noted. EXTREMITIES - No clubbing or peripheral cyanosis. No pretibial edema present. +3/5 radial, posterior tibial, and dorsalis pedis pulses palpated throughout. +5/5 strength noted in UE/LE bilaterally. NEUROLOGIC - Cranial nerves II through XII grossly intact. Sensory intact to light touch throughout. PSYCH -somnolent. Awakens and provides name and location. Provides yes/no answers as well as brief explanations. Results & Data Results & Data ([facility]) Vital Signs (Past 12 Hours) Vital Signs Temp Pulse Pulse Resp BP BP Pulse Ox 11/04/20 00:35 79 14 97 11/04/20 00:30 75 16 96 11/04/20 00:26 76 16 112/70 97 11/04/20 00:15 75 11/03/20 23:57 37.2 C 76 16 112/70 97 11/03/20 23:00 78 15 112/69 95 11/03/20 22:30 77 26 H 99/60 L 91 11/03/20 22:00 74 21 102/61 98 11/03/20 21:30 78 18 108/66 99 11/03/20 21:07 83 11/03/20 20:30 80 19 114/73 99 11/03/20 20:00 78 14 120/67 99 11/03/20 19:32 37.0 C 82 18 106/71 99 Coding Level of Care Code Critical Care 1st 30-74 mins Diagnoses Admitted to intensive care unit Z78.9 Hyponatremia E87.1 Altered mental status R41.82 Altered mental status type: unspecified Weakness R53.1 Acute urinary retention R33.8 Hypokalemia E87.6 Time Spent (min) 55 (1) Altered mental status Altered mental status type: unspecified Qualified Code(s): R41.82 - Altered mental status, unspecified
[2020-11-04 02:05] LABS: BUN Creatinine Ratio 18.4 (10-20); Blood Urea Nitrogen 8 mg/dl (7-18); Calcium 7.6 mg/dl (8.5-10.1); Carbon Dioxide 29 mmol/L (21-32); Chloride 78 mmol/L (98-107); Est GFR (African American) > 150.0 ml/min; Est GFR (Non-African American) 131.4 ml/min; Glucose 95 mg/dl (70-99); Sodium 116 mmol/L (136-145)
[2020-11-04] MEDS ORDERED: SODIUM CHLORIDE 3 % 100 ML IV ONE ×2 (02:09→03:54)
[2020-11-04] MEDS ORDERED: THIAMINE HCL 100 MG in SYRINGE 9 ML IV STA (02:17)
[2020-11-04] MEDS: POTASSIUM CHLORIDE / WTR 10 MEQ/100 ML PLCT IV SCH ×4 (02:24→05:45)
[2020-11-04] MEDS: SODIUM CHLORIDE 3 % 500 ML IV SCH ×2 (02:38→06:09)
--- NOTE | 2020-11-04 02:57 | Billing Data ---
Date of Service November 04, 2020 Coding Level of Care Code Critical Care 1st - mins
[2020-11-04 03:34] LABS: BUN Creatinine Ratio 23.5 (10-20); Blood Urea Nitrogen 9 mg/dl (7-18); Calcium 7.4 mg/dl (8.5-10.1); Carbon Dioxide 28 mmol/L (21-32); Chloride 80 mmol/L (98-107); Est GFR (African American) > 150.0 ml/min; Est GFR (Non-African American) 137.1 ml/min; Glucose 84 mg/dl (70-99); Potassium 2.9 mmol/L (3.5-5.1); Sodium 114 mmol/L (136-145)
[2020-11-04] MEDS ORDERED: cefTRIAXone SODIUM 1,000 MG in DEXTROSE 5% 50 ML IV SCH (04:00)
[2020-11-04 05:08] LABS: Hematocrit (blood only) 31.1 % (42-52); Hemoglobin 11.6 g/dL (14.0-18.0); Immature Granulocytes # (auto) 0.04 K/uL (0.00-0.02); Immature Granulocytes % (auto) 0.4 %; Lymphocytes # (auto) 1.08 K/uL (1.2-3.4); Mean Corpuscular Hemoglobin 31.3 pg (25-34); Mean Corpuscular Hgb Conc 37.3 g/dL (32-36); Mean Corpuscular Volume 83.8 fL (80-100); Mean Platelet Volume 8.3 fL (7.4-10.4); Monocytes # (auto) 0.45 K/uL (0.11-0.59); Monocytes % (auto) 4.6 %; Neutrophils # (auto) 8.22 K/uL (1.4-6.5); Platelet Count 223 K/uL (130-400); RDW Coefficient of Variation 12.6 % (11.5-14.5); RDW Standard Deviation 38.6 fL (36.4-46.3); Red Blood Count 3.71 M/uL (4.7-6.1); White Blood Count 9.79 K/uL (4.8-10.8)
[2020-11-04 05:37] LABS: Alanine Aminotransferase 170 U/L (12-78); Albumin Level 2.8 gm/dl (3.4-5.0); Alkaline Phosphatase 52 U/L (45-117); Aspartate Aminotransferase 223 U/L (15-37); Bilirubin Direct 0.4 mg/dl (0-0.2); Bilirubin,Total 1.4 mg/dl (0.2-1); C Reactive Protein 8.34 mg/dl (0-0.29); Magnesium 2.6 mg/dl (1.8-2.4); Phosphorus 2.3 mg/dl (2.5-4.9); Total Protein 5.4 gm/dl (6.4-8.2)
[2020-11-04 05:40] LABS: Blood Urea Nitrogen 7 mg/dl (7-18); Glucose 84 mg/dl (70-99)
[2020-11-04 05:41] LABS: Creatine Kinase 5040 U/L (39-308)
[2020-11-04 05:57] LABS: BUN Creatinine Ratio 19.5 (10-20); Calcium 7.5 mg/dl (8.5-10.1); Carbon Dioxide 29 mmol/L (21-32); Chloride 84 mmol/L (98-107); Est GFR (African American) > 150.0 ml/min; Est GFR (Non-African American) 135.6 ml/min; Sodium 117 mmol/L (136-145)
[2020-11-04] MEDS ORDERED: POTASSIUM PHOS 3 MMOL/1 ML INFUSION IV STA (05:58)
[2020-11-04] MEDS ORDERED: HYDROCORTISONE SOD 50 MG in SYRINGE 0 ML IV SCH (06:00)
[2020-11-04] MEDS ORDERED: POTASSIUM PHOSPHATE 21 MMOL in SODIUM CHLORIDE 0.9% 500 ML IV ONE (06:30)
--- NOTE | 2020-11-04 07:09 | CT Scan Report ---
CT cervical spine wo con CLINICAL HISTORY: 55 years-old Male with falls. Acute head and neck injury status post fall COMPARISON: CT head and maxillofacial same day TECHNIQUE: Multiple axial CT images of the cervical spine were obtained without contrast. A dose low ering technique was utilized adhering to the principles of ALARA. FINDINGS: Moderate intervertebral disc space narrowing and spondylitic spurring posterior disc osteophyte compl ex at C5-C6. Minimal multilevel uncovertebral spurring with moderate multilevel left-sided facet arth rosis. No acute fracture or subluxation. Multilevel neural foraminal narrowing. No pneumothorax. Calcified plaque of the carotid bulbs. No prevertebral edema. IMPRESSION: No acute fracture or subluxation. ACT 112: Negative or not required by law. The above report was generated using voice recognition software. It may contain grammatical, syntax o r spelling errors. Electronically signed by: Jacob Goodrich M.D. 11/04/2020 7:08 AM
--- NOTE | 2020-11-04 07:15 | CT Scan Report ---
HEAD CT NONCONTRAST CT DOSE: HISTORY: falls TECHNIQUE: Multiaxial CT images of the head were performed without the use of intravenous contrast. A utomated exposure control was utilized for this study. A dose lowering technique was utilized adheri ng to the principles of ALARA. Comparison: None. Findings: Mild mucosal thickening and a trace fluid level within the right maxillary sinus. The masto id air cells are clear. Mild left periorbital soft tissue swelling. The calvarium and skull base are intact. The ventricles and sulci are within normal limits. There is no mass, hematoma, midline shift, or acute infarct. Impression: No acute intracranial abnormality. Left periorbital soft tissue swelling. ACT 112: Negative or not required by law. Electronically signed by: Reagan Amaral M.D. 11/04/2020 7:13 AM
[2020-11-04 07:42] LABS: BUN Creatinine Ratio 19.1 (10-20); Blood Urea Nitrogen 8 mg/dl (7-18); Calcium 7.2 mg/dl (8.5-10.1); Carbon Dioxide 29 mmol/L (21-32); Chloride 85 mmol/L (98-107); Est GFR (African American) > 150.0 ml/min; Est GFR (Non-African American) 132.8 ml/min; Glucose 89 mg/dl (70-99); Potassium 3.4 mmol/L (3.5-5.1); Sodium 119 mmol/L (136-145)
--- NOTE | 2020-11-04 07:47 | CT Scan Report ---
MAXILLOFACIAL CT CT DOSE: 1039.65 mGy.cm HISTORY: s/p falls TECHNIQUE: Multiaxial CT images of the maxillofacial region were performed and reformatted in the cor onal plane without the use of contrast. A dose lowering technique was utilized adhering to the princ iplDale. COMPARISON: None. FINDINGS: The visualized cervical spine, skull base, pterygoid plates, nasal bones, lamina papyracea, orbital floors, mandible, and zygomatic arches are intact. No fractures. The orbits are unremarkable . Mild left periorbital soft tissue swelling. Mild to moderate mucosal thickening within the right ma xillary sinus. Degenerative changes at the temporomandibular joints. IMPRESSION: No fractures within the maxillofacial region. Mild left periorbital soft tissue swelling. ACT 112: Negative or not required by law. Electronically signed by: Reagan Amaral M.D. 11/04/2020 7:46 AM
[2020-11-04] MEDS ORDERED: OPTIRAY 320 100ml IV ONE (08:37)
[2020-11-04 09:48] LABS: BUN Creatinine Ratio 21.8 (10-20); Blood Urea Nitrogen 7 mg/dl (7-18); Calcium 7.2 mg/dl (8.5-10.1); Carbon Dioxide 28 mmol/L (21-32); Chloride 88 mmol/L (98-107); Est GFR (African American) > 150.0 ml/min; Est GFR (Non-African American) 145.5 ml/min; Glucose 96 mg/dl (70-99); Potassium 3.5 mmol/L (3.5-5.1); Sodium 123 mmol/L (136-145)
--- NOTE | 2020-11-04 09:50 | Medical Student Progress Note ---
Date of Service November 04, 2020 Assessment & Plan (1) Altered mental status: Plan: Mr. Chase is a 55 y/o male with an unknown PMHx admitted to the ICU for altered mental status, a fall, and symptomatic hyponatremia. His sodium is trending upwards and he is more arousable at the bedside than he had been at admission. He is hemodynamically stable, though has begun having AFib. 1. Altered Mental Status 2/2 Hypoglycemic Hyponatremia -Na at admission: 114 -Received series of NSS boluses and received 3% hypertonic saline in the ICU -Na uptrending and is currently at 123 -Will be downgraded from ICU to PCU status, but will remain in the ICU -ICU protocol for repleting Na -DDAVP to ensure Na does not increase too quickly -Fluid restriction, PO sodium intake -q4 BMP checks 2. Elevated LFTs -AST: 223 (down from 271), ALT: 170 (down from 174) -- likely hepatocellular etiologies include viral or toxin -LDH: 704 -Given cachexia and labs, obtain CT A/P to r/o neoplastic etiology 3. AFib -Occurred while in ICU -Highest HR: 110s, BP: 90s/60s -Metoprolol 12.5 mg q8 ordered, but with low BP, HR on the lower end of tachycardia, and ASX, hold off for now -If cannot tolerate metoprolol and patient becomes symptomatic, begin amiodarone bolus/drip 4. Cachexia/Protein Calorie Malnutrition -Albumin: 2.8 -Likely secondary to extended fast, want to r/o malignancy -Replete electrolytes, being weary of possibility of refeeding syndrome -Consult dietary, nutritional -Trend electrolytes 5. Delusions -See subjective for examples -Psych consult once out of ICU 6. Normocytic Anemia -Hgb: 11.6, MCV: 83.8 -With elevated LDH, thinking there may be a possible hemolytic process -Peripheral smear ordered and pending 7. Rib Fracture -Likely secondary from fall -Lidocaine patch to manage pain 8. Hypokalemia -K: 3.1 -Replete 9. Pulmonary Nodule -Incidental findings on CXR -CT Chest: "Multiple calcified pulmonary nodule/granulomas. Noncalcified pulmonary micronodule within left upper lobe. Please note that in presence of high risk factors for pulmonary malignancy, follow-up evaluation for pulmonary nodules measuring less than 6 mm in size in 12 months is optional per Fleischner Society guidelines." 10. Hypoxia -Currently 100% saturation with 2 L NC -Wean off as tolerated DVT PPx: Heparin Drip FEN/GI: Regular; fluid restriction; sodium PO Code: Full Dispo: PCU (in ICU) Altered mental status type: unspecified Qualified Code(s): R41.82 - Altered mental status, unspecified (2) Hyponatremia: (3) Elevated LFTs: (4) Atrial fibrillation: (5) Cachexia: (6) Delusion: (7) Normocytic anemia: (8) Rib fracture: (9) Hypokalemia: (10) Pulmonary nodules: (11) Hypoxia: Admission and Anticipated Discharge Date Admission Date: November 03, 2020 Supervising Attestation Patient seen and examined with [facility] Means. Agree with history, exam findings, assessment and plan of care as outlined. In brief, Mr. Chase is a 55 year old male with no known medical history admitted after being found down in his home by a family member. He was found to have symptomatic hyponatremia in the emergency room. Today, he is seen in the ICU. He believes he has COVID because has seen the [facility]. However, acknowledges that since he is [place] he would not go to [facility]. He was previously doing a fast because he read a book about Erlinda and believed that he had this. Family requesting psychiatry consult due to concerns about mental health. Vital signs and nursing notes reviewed. Sleepy, but easily arousable. Tachycardic, irregularly irregular. Lungs are clear to auscultation. Holds odd beliefs regarding COVID. Unclear visual hallucinations. Labs and imaging reviewed. 1. Metabolic encephalopathy. Due to hyponatremia (see below). Improving slightly as Na increases. 2. Hypoosmolar hyponatremia. Improving. Continue with fluid restriction. Appreciate nephrology recommendations. 3. Hypoxia. Resolved. Off nasal cannula and saturating appropriately. 4. Elevated LFTs. Hepatocellular pattern. Check CT Abd/Pelvis. 5. Afib with RVR. Improved with IV metoprolol. 6. Cachexia, protein-calorie malnutrition. Repleting electrolytes. Watch for re- feeding syndrome as PO intake increases. Appreciate dietary/nutrition recommendations. 7. Normocytic anemia. Peripheral smear pending. 8. Right 10th rib fracture. Minimally displaced. Pulm toilet to prevent atelectasis. 9. Pulmonary nodule. Incidental finding. Follow up as outpatient. 10. Delusions. Concerning although may become more clear whether these are long held beliefs once sensorium clears a bit more. Appreciate psychiatry input. Dispo: pending clinical improvement. Subjective Overall, Mr. Chase is sleeping comfortably in bed. He is in and out of sleep, but is able to state his name and where he is. He denies any pain at this time. Of note, he asks me to smell his breath and his feet while at the bedside. The patient is also having delusions. He believes that he still has COVID, though acknowledges that he has never had COVID before. When told that his test in the hospital is negative, he responds, "Eh." When asked why he began fasting, he said it was because of "Erlinda yeast" he read in a book and he believes he has seen "the [facility]", but he is grateful to be [place] so that he won't go there. Review of Systems Review of Systems: Unobtainable due to cognitive status and Unobtainable due to reduced consciousness Physical Exam Physical Exam: GENERAL - 55-year-old cachectic appearing male appearing older than his stated age who is in no acute distress. Somnolent, but wakes to answer simple questions. SKIN - Ecchymosis noted to the LEFT periorbital area. Jaundiced. HEAD - NC/AT. LUNGS - Lungs clear to auscultation bilaterally. No rales, wheezes, rhonchi, or stridor. Chest wall symmetric without accessory muscle use, intercostals retractions, or central cyanosis. CARDIAC - RRR with S1/S2. No murmur, rubs, or gallops appreciated. EXTREMITIES - No clubbing or peripheral cyanosis. No pretibial edema present. Capillary refill < 2 sec. PSYCH -somnolent. Awakens and provides name and location. Provides yes/no answers as well as brief explanations. Delusions present. Results & Data ([facility]) Vital Signs (Past 12 Hours) Vital Signs Temp Pulse Pulse Resp BP BP Pulse Ox 11/04/20 08:00 69 11/04/20 06:10 67 12 94/56 L 98 11/04/20 06:05 37.2 C 71 12 92/60 L 97 11/04/20 05:40 70 13 98/57 L 100 11/04/20 04:40 76 14 104/62 99 11/04/20 03:40 71 12 108/64 100 11/04/20 02:55 80 13 105/60 100 11/04/20 01:55 73 15 96/62 L 100 11/04/20 00:55 65 16 128/73 99 11/04/20 00:35 79 14 97 11/04/20 00:30 75 16 96 11/04/20 00:26 76 16 112/70 97 11/04/20 00:15 75 11/03/20 23:57 37.2 C 76 16 112/70 97 11/03/20 23:00 78 15 112/69 95 11/03/20 22:30 77 26 H 99/60 L 91 11/03/20 22:00 74 21 102/61 98 Laboratory Results Laboratory Results WBC 9.79 K/uL (4.8-10.8) 11/04/20 04:51 RBC 3.71 M/uL (4.7-6.1) L 11/04/20 04:51 Hgb 11.6 g/dL (14.0-18.0) L 11/04/20 04:51 Hct 31.1 % (42-52) L 11/04/20 04:51 MCV 83.8 fL (80-100) 11/04/20 04:51 MCH 31.3 pg (25-34) 11/04/20 04:51 MCHC 37.3 g/dL (32-36) H 11/04/20 04:51 RDW Std Deviation 38.6 fL (36.4-46.3) 11/04/20 04:51 RDW Coeff of Maryanne 12.6 % (11.5-14.5) 11/04/20 04:51 Plt Count 223 K/uL (130-400) 11/04/20 04:51 MPV 8.3 fL (7.4-10.4) 11/04/20 04:51 Immature Gran % (Auto) 0.4 % 11/04/20 04:51 Neut % (Auto) 84.0 % 11/04/20 04:51 Lymph % (Auto) 11.0 % 11/04/20 04:51 [place] % (Auto) 4.6 % 11/04/20 04:51 Eos % (Auto) 0.0 % 11/04/20 04:51 Baso % (Auto) 0.0 % 11/04/20 04:51 Neut # (Auto) 8.22 K/uL (1.4-6.5) H 11/04/20 04:51 Lymph # (Auto) 1.08 K/uL (1.2-3.4) L 11/04/20 04:51 [place] # (Auto) 0.45 K/uL (0.11-0.59) 11/04/20 04:51 Eos # (Auto) 0.00 K/uL (0-0.5) 11/04/20 04:51 Baso # (Auto) 0.00 K/uL (0-0.2) 11/04/20 04:51 Immature Gran # (Auto) 0.04 K/uL (0.00-0.02) H 11/04/20 04:51 Echinocytes 1+ 11/03/20 20:27 ESR 3 mm/hr (0-20) 11/04/20 04:51 PT 10.8 Seconds (9.0-12.0) 11/03/20 22:51 INR 1.1 (0.9-1.1) 11/03/20 22:51 Sodium 122 mmol/L (136-145) L 11/04/20 15:09 Potassium 3.1 mmol/L (3.5-5.1) L 11/04/20 15:09 Chloride 88 mmol/L (98-107) L 11/04/20 15:09 Carbon Dioxide 29 mmol/L (21-32) 11/04/20 15:09 Anion Gap 6.0 (3-11) 11/04/20 15:09 BUN 8 mg/dl (7-18) 11/04/20 15:09 Creatinine 0.41 mg/dl (0.6-1.4) L 11/04/20 15:09 Est Cr Clr Drug Dosing Not Reportable 11/04/20 15:09 Est GFR ( Amer) > 150.0 ml/min 11/04/20 15:09 Est GFR (Non-Af Amer) 131.4 ml/min 11/04/20 15:09 BUN/Creatinine Ratio 18.9 (10-20) 11/04/20 15:09 Glucose 153 mg/dl (70-99) H 11/04/20 15:09 Osmolality 237 mOsm/kg (280-300) L* 11/03/20 22:50 Calcium 7.3 mg/dl (8.5-10.1) L 11/04/20 15:09 Phosphorus 2.3 mg/dl (2.5-4.9) L 11/04/20 04:51 Magnesium 2.6 mg/dl (1.8-2.4) H 11/04/20 04:51 Total Bilirubin 1.4 mg/dl (0.2-1) H 11/04/20 04:51 Direct Bilirubin 0.4 mg/dl (0-0.2) H 11/04/20 04:51 AST 223 U/L (15-37) H 11/04/20 04:51 ALT 170 U/L (12-78) H 11/04/20 04:51 Alkaline Phosphatase 52 U/L (45-117) 11/04/20 04:51 Ammonia < 10.0 umol/L (11-32) L 11/04/20 01:14 Lactate Dehydrogenase 704 U/L (87-241) H 11/04/20 04:51 Total Creatine Kinase 5040 U/L (39-308) H 11/04/20 04:51 Troponin I < 0.015 ng/ml (0-0.045) 11/03/20 20:27 C-Reactive Protein 8.34 mg/dl (0-0.29) H 11/04/20 04:51 Total Protein 5.4 gm/dl (6.4-8.2) L 11/04/20 04:51 Albumin 2.8 gm/dl (3.4-5.0) L 11/04/20 04:51 Globulin 2.6 gm/dl (2.5-4.0) 11/03/20 20:27 Albumin/Globulin Ratio 1.0 (0.9-2) 11/03/20 20:27 Procalcitonin 0.36 ng/ml (0-0.5) 11/04/20 04:51 TSH 1.070 uIu/ml (0.300-4.500) 11/03/20 20:27 Random Cortisol 27.43 mcg/dl 11/04/20 01:14 Urine Color Yellow 11/03/20 20:00 Urine Appearance Clear (Clear) 11/03/20 20:00 Urine pH 5.0 (4.5-7.5) 11/03/20 20:00 Ur Specific [place] 1.012 (1.000-1.030) 11/03/20 20:00 Urine Protein Negative (Negative) 11/03/20 20:00 Urine Glucose (UA) Negative (Negative) 11/03/20 20:00 Urine Ketones Trace (Negative) H 11/03/20 20:00 Urine Blood Negative (Negative) 11/03/20 20:00 Urine Nitrite Negative (Negative) 11/03/20 20:00 Urine Bilirubin Negative (Negative) 11/03/20 20:00 Urine Urobilinogen Negative (Negative) 11/03/20 20:00 Ur Leukocyte Esterase Negative (Negative) 11/03/20 20:00 Urine Osmolality 139 mOsm/kg (500-800) L 11/03/20 Unknown Urine Sodium 11 mmol/L 11/03/20 Unknown Urine Potassium 8.1 mmol/L 11/03/20 Unknown Urine Chloride < 10 mmol/L 11/03/20 Unknown Nasal Screen MRSA (PCR) Negative (Negative) 11/03/20 22:55 COVID-19 Eval Order Covid19 at [facility] 11/03/20 20:20 SARS-CoV-2 (PCR) NEGATIVE (Negative) 11/03/20 20:20 Impressions Chest X-Ray 11/03/20 19:52 XR chest 1V portable CLINICAL HISTORY: weakness COMPARISON STUDY: No previous studies for comparison. FINDINGS: No pneumothorax. No pleural effusion. No large infiltrates or consolidative lesions are seen. Cardiac silhouette is within normal limits in size. There is questionable focal widening of the mediastinum at the region of the right hilum which could be due to tortuous aorta versus other etiology. No significant pulmonary vascular congestion.. Aorta is calcified Osseous structures: Mild degenerative changes of the spine. IMPRESSION: 1. No large infiltrates or consolidative lesions are seen, however there is questionable prominence of the mediastinum at the region of the right hilum which could be due to aortic tortuosity however mediastinal lymphadenopathy/mass cannot be completely ruled out. Further evaluation with CT of the chest is suggested. ACT 112: Negative or not required by law. The above report was generated using voice recognition software. It may contain grammatical, syntax or spelling errors. Electronically signed by: Keren Dixon DO 11/03/2020 8:[address] 11/03/20 19:53 CT cervical spine wo con CLINICAL HISTORY: 55 years-old Male with falls. Acute head and neck injury status post fall COMPARISON: CT head and maxillofacial same day TECHNIQUE: Multiple axial CT images of the cervical spine were obtained without contrast. A dose lowering technique was utilized adhering to the principles of ALARA. FINDINGS: Moderate intervertebral disc space narrowing and spondylitic spurring posterior disc osteophyte complex at C5-C6. Minimal multilevel uncovertebral spurring with moderate multilevel left-sided facet arthrosis. No acute fracture or subluxation. Multilevel neural foraminal narrowing. No pneumothorax. Calcified plaque of the carotid bulbs. No prevertebral edema. IMPRESSION: No acute fracture or subluxation. ACT 112: Negative or not required by law. The above report was generated using voice recognition software. It may contain grammatical, syntax or spelling errors. Electronically signed by: Jacob Goodrich M.D. 11/04/2020 7:[address] 11/03/20 19:[address] DOSE: 1039.65 mGy.cm HISTORY: s/p falls TECHNIQUE: Multiaxial CT images of the maxillofacial region were performed and reformatted in the coronal plane without the use of contrast. A dose lowering technique was utilized adhering to the principles of ALARA. COMPARISON: None. FINDINGS: The visualized cervical spine, skull base, pterygoid plates, nasal bones, lamina papyracea, orbital floors, mandible, and zygomatic arches are intact. No fractures. The orbits are unremarkable. Mild left periorbital soft tissue swelling. Mild to moderate mucosal thickening within the right maxillary sinus. Degenerative changes at the temporomandibular joints. IMPRESSION: No fractures within the maxillofacial region. Mild left periorbital soft tissue swelling. ACT 112: Negative or not required by law. Electronically signed by: Reagan Amaral M.D. 11/04/2020 7:[address] 11/03/20 19:[address] DOSE: HISTORY: falls TECHNIQUE: Multiaxial CT images of the head were performed without the use of intravenous contrast. Automated exposure control was utilized for this study. A dose lowering technique was utilized adhering to the principles of ALARA. Comparison: None. Findings: Mild mucosal thickening and a trace fluid level within the right maxillary sinus. The mastoid air cells are clear. Mild left periorbital soft tissue swelling. The calvarium and skull base are intact. The ventricles and sulci are within normal limits. There is no mass, hematoma, midline shift, or acute infarct. Impression: No acute intracranial abnormality. Left periorbital soft tissue swelling. ACT 112: Negative or not required by law. Electronically signed by: Reagan Amaral M.D. 11/04/2020 7:[address] 11/04/20 07:33 CT OF THE CHEST WITH IV CONTRAST CLINICAL HISTORY: hilar fullness COMPARISON STUDY: No previous studies for comparison. TECHNIQUE: Following the IV administration of 94 mL of Optiray, CT of the thorax was performed from the thoracic inlet to the lung bases. Images are reviewed in the axial, sagittal, and coronal planes. IV contrast was administered without complication. A dose lowering technique was utilized adhering to the principles of ALARA. CT DOSE: 216.54 mGy.cm FINDINGS: Thyroid: Visualized portion of thyroid gland shows no evidence of focal lesions. There is no axillary, supra clavicle or internal mammary lymphadenopathy seen. No mediastinal or hilar lymphadenopathy seen. Thoracic aorta: The thoracic aorta is normal in course and caliber, noting standard 3-vessel arch anatomy. No aneurysm or dissection is seen. Pulmonary vasculature: Is normal in caliber. HEART: Is normal in size without pericardial effusion. Heavy calcifications of coronary arteries and possible stents are seen. Lungs and pleural spaces: Tracheobronchial tree is patent. Small amount of secretion is seen at dependent portion of the intrathoracic trachea extending to the right mainstem bronchus. Mild atelectasis is seen at dependent portions of bilateral lower lobes. No pleural effusion is seen. Evaluation of lung parenchyma is limited due to motion artifact. Multiple calcified granulomas are seen throughout bilateral lungs. 3 mm micronodule is seen within left upper lobe (4/172) Upper abdomen: Partially visualized upper abdominal viscera is within normal limits. Skeletal structures: Slightly displaced acute fracture deformity of the lateral aspect of the right 10th rib is seen. Mild multilevel degenerative changes of the spine. Patient is cachetic. IMPRESSION: 1. Mediastinal vascular structures appear normal. No mediastinal lymphadenopathy seen. 2. Slightly displaced fracture at the right 10th rib. 3. Minimal atelectasis at bilateral bases. No infiltrates or consolidative lesions. Limited exam due to motion artifact. 4. Multiple calcified pulmonary nodule/granulomas. Noncalcified pulmonary micronodule within left upper lobe. Please note that in presence of high risk factors for pulmonary malignancy, follow-up evaluation for pulmonary nodules measuring less than 6 mm in size in 12 months is optional per Fleischner Society guidelines. 5. Cachexia Please refer to below summary of Fleischner criteria recommendations for follow- up of incidental CT nodules (Kacey Anderson, Guidelines for management of small pulmonary nodules detected on CT scans: A statement from the Fleischner Society, Radiology 237: [phone].) SOLID NODULES Solitary nodule size: <6 mm * low risk patients: no follow-up needed * high risk patients: optional CT at 12 months Solitary nodule size: 6-8 mm * low risk patients: follow-up at 6-12 months, then consider further follow-up at 18-24 months * high risk patients: initial follow-up CT at 6-12 months and then at 18-24 months if no change Solitary nodule size: >8 mm * either low or high risk patients - consider follow-up CT at 3 months, and/or CT-PET, and/or biopsy Multiple nodules size: <6 mm * low risk patients: no routine follow-up * high risk patients: optional CT at 12 months Multiple nodules size: 6-8 mm * low risk patients: follow-up at 3-6 months, then consider further follow-up at 18-24 months * high risk patients: follow-up at 3-6 months, then at 18-24 months if no change Multiple nodules size: >8 mm * low risk patients: follow-up at 3-6 months, then consider further follow-up at 18-24 months * high risk patients: follow-up at 3-6 months, then at 18-24 months if no change Note: newly detected indeterminate nodule in persons 35 years of age or older. * low risk patients: minimal or absent history of smoking and/or other known risk factors * high risk patients: history of smoking or of other known risk factors (e.g. first degree relative with lung cancer, or exposure to asbestos, radon, uranium) * if a nodule up to 8 mm is partly solid or is ground glass further follow-up is required after 24 months to exclude possible slow growing adenocarcinoma (KATE) SUBSOLID NODULES Solitary pure ground-glass nodule * nodule size <6 mm - no CT follow-up required * nodule size >=6 mm - follow-up CT at 6-12 months, then every 2 years until 5 years Solitary part-solid nodule * nodule size <6 mm - no CT follow-up required * nodule size >=6 mm - follow-up CT at 3-6 months. If unchanged, and solid component remains <6 mm, then annual follow-up for 5 years Multiple subsolid nodules * nodule size <6 mm - follow-up CT at 3-6 months, consider further follow-up at 2 and 4 years if stable * nodule size >=6 mm - follow-up CT at 3-6 months, subsequent management based on the most suspicious nodule(s) ACT 112: Positive. There are findings on this exam that require communication between the performing entity and the patient following Patient Test Result Information Act ([place] Act 112) guidelines. The above report was generated using voice recognition software. It may contain grammatical, syntax or spelling errors. Electronically signed by: Keren Dixon DO 11/04/2020 10:27 AM Medications Administered Current Inpatient Medications Heparin Sodium/Dextrose (Heparin Iv Adult Wt-Based Standard *No* Bolus Protocol) 1 ea IV ONE ONE; Protocol Stop: 11/04/20 16:34 Heparin Sodium/Dextrose (Heparin Sodium/Dextrose) 25,000 units in 500 mls @ 0.02 mls/hr IV .Q24H ALMITA; Protocol Stop: 12/04/20 16:44 Metoprolol Tartrate (Metoprolol Tartrate 25 Mg Tab) 12.5 mg PO Q8 ALMITA Stop: 12/04/20 21:59
--- NOTE | 2020-11-04 10:05 | Nephrology Consultation ---
Date of Consultation November 04, 2020 Assessment & Plan (1) Hyponatremia: * Hypoosmolar hyponatremia. Normal thyroid and renal function. Clinically euvolemic. Low urine osmolality suggestive of polydipsia/potomania * Target 6 - 8 mmol/L correction of serum sodium over 24 hours. Will stop 3% NaCl gtt. Serum sodium will likely increase further with correction of serum potassium * Monitor serial PRP, UO * Patient had relative hypotension at the time of admission. Agree w/ empiric steroid therapy * Blood and urine cultures are pending * Chest CT was completed - result pending (2) Hypokalemia: * Patient receiving KPO4 IV this am (3) Acute urinary retention: * Bladder scan w/ 1900 cc urine. Holder now in place. Monitor UO (4) Rhabdomyolysis: * CPK 5,040 at time of admission. Will monitor History of Present Illness Reason for Consultation: Hyponatremia Attending Physician: Jazmine Harris, History of Present Illness Mr. Chase is a 55 [address] [facility] male who is seen at the request of the ICU team to assist in the management of hyponatremia. Although Mr. Chase is oriented to self and place this morning he can provide few details of his medical history. Information for the history has been obtained from the medical record and is summarized as follows: Mr. Chase has no chronic medical illnesses. He is not on any prescription medications. Over the last 2 weeks he felt poorly and attempted to "detoxify" his body by fasting and drinking water. He was found by his family yesterday to be weak and confused. He had fallen and had a large area of ecchymosis surrounding his L eye. Mr. Chase was brought to the ED. He c/o lower abdominal discomfort. Bladder scan revealed 1900 cc. Holder catheter was placed and patient had brisk diuresis of ~ 2L. Serum sodium was 114 mmol/L w/ urine osmolality 139. 500 cc 0.9NS was initially administered. 100 cc 3% NaCl was then given and Mr. Chase was admitted to the ICU. In the ICU additional 100 cc 3% NaCl was administered and 3% NaCl gtt was started at 40 cc/hr. Serum sodium remained unchanged over 6 hours of observation. Telephone consultation with Nephrology was requested overnight. Additional 100 cc 3% NaCl bolus advise d and 3% NaCl gtt continued. Serum sodium this am has risen to 119 mmol/L. Net 5 mmol/L increase in serum sodium over last 8 hours. Patient's mental status has improved. He is currently receiving KPO4 replacement. Allergies Allergy/AdvReac Type Severity Reaction Status Date / Time Unable to Assess Allergy Unverified 11/03/20 20:04 Home Medications Medication Instructions Recorded Confirmed Type No Known Home Medications 11/03/20 11/03/20 History Patient History Medical History No pertinent past medical history Surgical History No pertinent past surgical history Social History Smoking Status: Never smoker Second Hand Exposure: No; Do You Dip or Chew Tobacco: No; Hx Alcohol Use: No Hx Substance Use: No [employer] Required: No Beliefs That Will Affect Care: Tenriism and Cultural Current Living Situation: Spouse and Family Feels Safe at Home: Yes Safety Concerns: Feels Safe At This Time Assistive Devices: None Review of Systems Constitutional: + weakness; no fever Eyes: no problem reported Ear, Nose, Mouth, Throat: no problem reported Respiratory: no cough and no dyspnea Cardiovascular: no chest pain, no palpitations and no edema Gastrointestinal: no abdominal pain, no nausea, no vomiting and no diarrhea/loose stools Genitourinary: + urinary hesitancy Musculoskeletal: no back pain Integumentary: no rash Neurologic: + falls Physical Exam Constitutional: + cachectic; not in distress Eyes: PERRL, conjunctivae normal, anicteric sclerae ENMT: Mouth: + dry oral mucous membranes Neck: trachea midline, no thyromegaly Respiratory: normal respiratory effort, lungs clear to auscultation Cardiovascular: RRR, no murmur, no edema Gastrointestinal (Abdomen): normal bowel sounds, soft, nontender, no hepatosplenomegaly Musculoskeletal: Extremities: no cyanosis Skin: Trauma: + periorbital ecchymosis (L eye) Neurologic: awake (oriented to self and place only) Results & Data ([facility]) Vital Signs (Past 12 Hours) Vital Signs Temp Pulse Pulse Resp BP BP Pulse Ox 11/04/20 08:00 69 11/04/20 06:10 67 12 94/56 L 98 11/04/20 06:05 37.2 C 71 12 92/60 L 97 11/04/20 05:40 70 13 98/57 L 100 11/04/20 04:40 76 14 104/62 99 11/04/20 03:40 71 12 108/64 100 11/04/20 02:55 80 13 105/60 100 11/04/20 01:55 73 15 96/62 L 100 11/04/20 00:55 65 16 128/73 99 11/04/20 00:35 79 14 97 11/04/20 00:30 75 16 96 11/04/20 00:26 76 16 112/70 97 11/04/20 00:15 75 11/03/20 23:57 37.2 C 76 16 112/70 97 11/03/20 23:00 78 15 112/69 95 11/03/20 22:30 77 26 H 99/60 L 91 11/03/20 22:00 74 21 102/61 98 Laboratory Results Laboratory Tests 11/03/20 11/03/20 11/03/20 20:00 20:27 Unknown WBC 13.62 H Hgb Hct Plt Count Sodium Potassium Chloride Carbon Dioxide BUN Creatinine Glucose Calcium Phosphorus Magnesium Total Bilirubin AST ALT Alkaline Phosphatase Lactate Dehydrogenase Total Creatine Kinase Albumin Procalcitonin Random Cortisol Urine Color Yellow Urine Appearance Clear Urine pH 5.0 Ur Specific [place] 1.012 Urine Protein Negative Urine Glucose (UA) Negative Urine Blood Negative Urine Nitrite Negative Ur Leukocyte Esterase Negative Urine Osmolality 139 L Urine Sodium Urine Chloride 11/03/20 11/04/20 11/04/20 Unknown 01:14 02:59 WBC Hgb Hct Plt Count Sodium 114 L* Potassium 2.9 L Chloride Carbon Dioxide BUN Creatinine Glucose Calcium Phosphorus Magnesium Total Bilirubin AST ALT Alkaline Phosphatase Lactate Dehydrogenase Total Creatine Kinase Albumin Procalcitonin Random Cortisol 27.43 Urine Color Urine Appearance Urine pH Ur Specific [place] Urine Protein Urine Glucose (UA) Urine Blood Urine Nitrite Ur Leukocyte Esterase Urine Osmolality Urine Sodium 11 Urine Chloride < 10 11/04/20 11/04/20 11/04/20 04:51 04:51 04:51 WBC Hgb Hct Plt Count Sodium Potassium Chloride Carbon Dioxide BUN Creatinine Glucose Calcium Phosphorus 2.3 L Magnesium 2.6 H Total Bilirubin 1.4 H AST 223 H ALT 170 H Alkaline Phosphatase 52 Lactate Dehydrogenase 704 H Total Creatine Kinase 5040 H Albumin 2.8 L Procalcitonin 0.36 Random Cortisol Urine Color Urine Appearance Urine pH Ur Specific [place] Urine Protein Urine Glucose (UA) Urine Blood Urine Nitrite Ur Leukocyte Esterase Urine Osmolality Urine Sodium Urine Chloride 11/04/20 11/04/20 04:51 06:55 WBC 9.79 Hgb 11.6 L Hct 31.1 L Plt Count 223 Sodium 119 L* Potassium 3.4 L Chloride 85 L Carbon Dioxide 29 BUN 8 Creatinine 0.40 L Glucose 89 Calcium 7.2 L Phosphorus Magnesium Total Bilirubin AST ALT Alkaline Phosphatase Lactate Dehydrogenase Total Creatine Kinase Albumin Procalcitonin Random Cortisol Urine Color Urine Appearance Urine pH Ur Specific [place] Urine Protein Urine Glucose (UA) Urine Blood Urine Nitrite Ur Leukocyte Esterase Urine Osmolality Urine Sodium Urine Chloride PG Care Time/CCT Total # of Minutes Spent Total Time Spent with Patient: Total time spent is greater than 50% in coordination of care (as documented) at patient's floor/unit and/or counseling patient: Coding Level of Care Code 37623 Inpt Consult Level 5 Diagnoses Hyponatremia E87.1 Hypokalemia E87.6 Acute urinary retention R33.8 Rhabdomyolysis M62.82
[2020-11-04] MEDS ORDERED: DESMOPRESSIN ACETATE 1 MCG in SODIUM CHLORIDE 0.9% 50 ML IV STA (10:10)
[2020-11-04] MEDS ORDERED: POTASSIUM CHLORIDE PWD 20 MEQ PACK PO ONE (10:19)
[2020-11-04] MEDS ORDERED: POTASSIUM CHLORIDE CRTAB 20 MEQ TABCR PO STA ×2 (10:24→16:36)
--- NOTE | 2020-11-04 10:29 | CT Scan Report ---
CT OF THE CHEST WITH IV CONTRAST CLINICAL HISTORY: hilar fullness COMPARISON STUDY: No previous studies for comparison. TECHNIQUE: Following the IV administration of 94 mL of Optiray, CT of the thorax was performed from the thoracic inlet to the lung bases. Images are reviewed in the axial, sagittal, and coronal planes. IV contrast was administered without complication. A dose lowering technique was utilized adhering to the principles of ALARA. CT DOSE: 216.54 mGy.cm FINDINGS: Thyroid: Visualized portion of thyroid gland shows no evidence of focal lesions. There is no axillary, supra clavicle or internal mammary lymphadenopathy seen. No mediastinal or micheal r lymphadenopathy seen. Thoracic aorta: The thoracic aorta is normal in course and caliber, noting standard 3-vessel arch toni jan. No aneurysm or dissection is seen. Pulmonary vasculature: Is normal in caliber. HEART: Is normal in size without pericardial effusion. Heavy calcifications of coronary arteries and possible stents are seen. Lungs and pleural spaces: Tracheobronchial tree is patent. Small amount of secretion is seen at dependent portion of the intrat horacic trachea extending to the right mainstem bronchus. Mild atelectasis is seen at dependent portions of bilateral lower lobes. No pleural effusion is seen. Evaluation of lung parenchyma is limited due to motion artifact. Multiple calcified granulomas are seen throughout bilateral lungs. 3 mm micronodule is seen within left upper lobe (4/172) Upper abdomen: Partially visualized upper abdominal viscera is within normal limits. Skeletal structures: Slightly displaced acute fracture deformity of the lateral aspect of the right 1 0th rib is seen. Mild multilevel degenerative changes of the spine. Patient is cachetic. IMPRESSION: 1. Mediastinal vascular structures appear normal. No mediastinal lymphadenopathy seen. 2. Slightly displaced fracture at the right 10th rib. 3. Minimal atelectasis at bilateral bases. No infiltrates or consolidative lesions. Limited exam due to motion artifact. 4. Multiple calcified pulmonary nodule/granulomas. Noncalcified pulmonary micronodule within left up per lobe. Please note that in presence of high risk factors for pulmonary malignancy, follow-up evalu ation for pulmonary nodules measuring less than 6 mm in size in 12 months is optional per Fleischner Society guidelines. 5. Cachexia Please refer to below summary of Fleischner criteria recommendations for follow-up of incidental CT n odules Doyle Anderson, Guidelines for management of small pulmonary nodules detected on CT scans: A sta tement from the Fleischner Society, Radiology 237: [phone].) SOLID NODULES Solitary nodule size: <6 mm * low risk patients: no follow-up needed * high risk patients: optional CT at 12 months Solitary nodule size: 6-8 mm * low risk patients: follow-up at 6-12 months, then consider further follow-up at 18-24 months * high risk patients: initial follow-up CT at 6-12 months and then at 18-24 months if no change Solitary nodule size: >8 mm * either low or high risk patients - consider follow-up CT at 3 months, and/or CT-PET, and/or biopsy Multiple nodules size: <6 mm * low risk patients: no routine follow-up * high risk patients: optional CT at 12 months Multiple nodules size: 6-8 mm * low risk patients: follow-up at 3-6 months, then consider further follow-up at 18-24 months * high risk patients: follow-up at 3-6 months, then at 18-24 months if no change Multiple nodules size: >8 mm * low risk patients: follow-up at 3-6 months, then consider further follow-up at 18-24 months * high risk patients: follow-up at 3-6 months, then at 18-24 months if no change Note: newly detected indeterminate nodule in persons 35 years of age or older. * low risk patients: minimal or absent history of smoking and/or other known risk factors * high risk patients: history of smoking or of other known risk factors (e.g. first degree relative with lung cancer, or exposure to asbestos, radon, uranium) * if a nodule up to 8 mm is partly solid or is ground glass further follow-up is required after 24 m onths to exclude possible slow growing adenocarcinoma (KATE) SUBSOLID NODULES Solitary pure ground-glass nodule * nodule size <6 mm - no CT follow-up required * nodule size >=6 mm - follow-up CT at 6-12 months, then every 2 years until 5 years Solitary part-solid nodule * nodule size <6 mm - no CT follow-up required * nodule size >=6 mm - follow-up CT at 3-6 months. If unchanged, and solid component remains <6 mm, then annual follow-up for 5 years Multiple subsolid nodules * nodule size <6 mm - follow-up CT at 3-6 months, consider further follow-up at 2 and 4 years if sta ble * nodule size >=6 mm - follow-up CT at 3-6 months, subsequent management based on the most suspiciou s nodule(s) ACT 112: Positive. There are findings on this exam that require communication between the performing entity and the patient following Patient Test Result Information Act ([place] Act 112) guidelines. The above report was generated using voice recognition software. It may contain grammatical, syntax o r spelling errors. Electronically signed by: Keren Dixon DO 11/04/2020 10:27 AM
[2020-11-04 11:11] LABS: Blood Urea Nitrogen 7 mg/dl (7-18); Calcium 7.3 mg/dl (8.5-10.1); Carbon Dioxide 28 mmol/L (21-32); Chloride 88 mmol/L (98-107); Est GFR (African American) > 150.0 ml/min; Est GFR (Non-African American) 137.1 ml/min; Glucose 109 mg/dl (70-99); Potassium 3.4 mmol/L (3.5-5.1); Sodium 123 mmol/L (136-145)
--- NOTE | 2020-11-04 12:07 | Communication Note ---
Date of Service: November 04, 2020 Patient seen and examined. Discussed with overnight critical care MANUEL as well as bedside ICU nurse and on multidisciplinary rounds. Case was also reviewed with nephrology Hyponatremia, possibly secondary to polydipsia and water intoxication as the patient endorses drinking large amounts of water and his urine osmolarity is low with a low urine sodium. We are restricting free water currently and the patient did receive hypertonic saline with improvement in his sodium levels. His mental status is also improving. CT of the chest demonstrated no intrathoracic abnormalities to account for the patient's findings. Continue to restrict free water and serial BMPs. If the patient sodium maintains above 120, he can likely transfer out of the ICU to the floor. If sodium continues to rise too quickly, we may need to allow some free water or start D5 half-normal. No indication for infection so we will hold antibiotics. His cortisol was relatively unremarkable so I do not think relative adrenal insufficiency is contributing and steroids will be stopped at this point time. Appreciate nephrology consultation and assistance in this matter. Once the patient is stable and transferring out of the ICU pulmonary critical care will sign off. Additional 50 minutes critical care time spent evaluating managing and stabilizing this patient Coding Level of Care Code Critical Care xavier mccain'ava 30 min Time Spent (min) 50
[2020-11-04 13:22] LABS: BUN Creatinine Ratio 20.1 (10-20); Blood Urea Nitrogen 7 mg/dl (7-18); Calcium 7.2 mg/dl (8.5-10.1); Carbon Dioxide 28 mmol/L (21-32); Chloride 87 mmol/L (98-107); Est GFR (African American) > 150.0 ml/min; Est GFR (Non-African American) 138.7 ml/min; Glucose 103 mg/dl (70-99); Potassium 3.2 mmol/L (3.5-5.1); Sodium 123 mmol/L (136-145)
--- NOTE | 2020-11-04 13:55 | Electrocardiogram Report ---
Test Reason : Blood Pressure : / mmHG Vent. Rate : 083 BPM Atrial Rate : 083 BPM P-R Int : 128 ms QRS Dur : 100 ms QT Int : 448 ms P-R-T Axes : 035 076 073 degrees QTc Int : 526 ms Poor data quality, interpretation may be adversely affected Sinus rhythm with Premature atrial complexes with Aberrant conduction Prolonged QT Abnormal ECG No previous ECGs available Confirmed by Shane Pimentel ([id number]) on 11/04/2020 1:55:11 PM Referred By: REFERRED SELF Confirmed By:Zeeshan Pimentel
--- NOTE | 2020-11-04 13:59 | Electrocardiogram Report ---
Test Reason : Blood Pressure : / mmHG Vent. Rate : 073 BPM Atrial Rate : 073 BPM P-R Int : 118 ms QRS Dur : 104 ms QT Int : 420 ms P-R-T Axes : 023 050 052 degrees QTc Int : 463 ms Normal sinus rhythm When compared with ECG of 03-NOV-2020 20:42, (unconfirmed) Aberrant conduction is no longer Present Confirmed by Shane Pimentel ([id number]) on 11/04/2020 1:59:27 PM Referred By: REFERRED SELF Confirmed By:Zeeshan Pimentel
[2020-11-04] MEDS ORDERED: ENOXAPARIN INJ 30 MG/0.3 ML SYR SQ SCH (14:00)
--- NOTE | 2020-11-04 15:28 | Communication Note ---
Date of Service: November 04, 2020 Reassessed patient. Sodium levels have been holding greater than one hundred and twenty. He is not required any additional doses of hypertonic saline. Sensorium is clearing. He has developed atrial fibrillation with ventricular rates anywhere between ninety-five and one hundred and ten. Blood pressures remain soft. TSH has been normal. We will try low-dose of IV metoprolol and oral metoprolol and increase anticoagulation to full dose. No indication for cardioversion. He is stable to transfer out of the ICU to the floor on telemetry at this point time. There is concerned about obtaining a psych consult however I would hold off until the patient's medically appropriate for discharge before requesting this evaluation. Coding Level of Care Code Critical Care xavier addt'l 30 min
[2020-11-04] MEDS ORDERED: METOPROLOL TARTRATE 1 MG/ML VIAL IV STA (15:30)
[2020-11-04] MEDS ORDERED: PATIENT'S HEIGHT AND/OR WEIGHT NEEDED SCH (15:45)
[2020-11-04 16:07] LABS: BUN Creatinine Ratio 18.9 (10-20); Blood Urea Nitrogen 8 mg/dl (7-18); Calcium 7.3 mg/dl (8.5-10.1); Carbon Dioxide 29 mmol/L (21-32); Chloride 88 mmol/L (98-107); Est GFR (African American) > 150.0 ml/min; Est GFR (Non-African American) 131.4 ml/min; Glucose 153 mg/dl (70-99); Potassium 3.1 mmol/L (3.5-5.1); Sodium 122 mmol/L (136-145)
[2020-11-04] MEDS ORDERED: Heparin IV Adult Wt-Based Standard *NO* Bolus Protocol IV ONE (16:33)
[2020-11-04] MEDS: HEPARIN SODIUM/DEXTROSE 25,000 UNITS/500 ML BAG IV SCH (17:54)
[2020-11-04] MEDS ORDERED: ICU ELECTROLYTE REPLACEMENT PROTOCOL SCH (18:00)
[2020-11-04 19:40] LABS: BUN Creatinine Ratio 24.7 (10-20); Blood Urea Nitrogen 8 mg/dl (7-18); Calcium 7.5 mg/dl (8.5-10.1); Carbon Dioxide 29 mmol/L (21-32); Chloride 89 mmol/L (98-107); Creatinine Clr Calc Pharmacy 215.5 ml/min; Est GFR (African American) > 150.0 ml/min; Est GFR (Non-African American) 145.5 ml/min; Glucose 95 mg/dl (70-99); Sodium 124 mmol/L (136-145)
[2020-11-04] MEDS ORDERED: POTASSIUM CHLORIDE 10 MEQ TABCR PO STA (20:19)
[2020-11-04] MEDS ORDERED: ENOXAPARIN INJ 60 MG/0.6 ML SYR SQ SCH (21:00)
--- NOTE | 2020-11-04 21:42 | CT Scan Report ---
CT SCAN OF THE ABDOMEN AND PELVIS WITH IV CONTRAST CLINICAL HISTORY: Elevated hepatic transaminases. COMPARISON STUDY: No priors. TECHNIQUE: Following the IV administration of 94 cc of Optiray 320, CT scan of the abdomen and pelvi s is performed from the lung bases to the proximal femora. Images are reviewed in the axial, sagittal , and coronal planes. IV contrast was administered without complication. Examination is suboptimal wi thout oral contrast. A dose lowering technique was utilized adhering to the principles of ALARA. The examination is degraded by motion artifact, and by streak artifact from the arms which could not be e levated above the abdomen. CT DOSE: 437.56 mGy.cm FINDINGS: Lung bases: The heart is normal in size and without pericardial effusion. The coronary arteries are d ensely calcified. Evaluation of the lung parenchyma is degraded by motion artifact. Edematous change is noted. There are scattered calcified granulomas. There are trace pleural effusions with dependent atelectasis. Liver: The contrast-enhanced liver is normal in size and contour. Attenuation is heterogeneous. There is no intrahepatic biliary ductal dilatation. The hepatic veins and portal veins are patent. Gallbladder: Unremarkable. Spleen: Normal in size and attenuation. Pancreas: Grossly unremarkable. Adrenal glands: Unremarkable. Kidneys: The contrast enhanced kidneys are normal in size and without hydronephrosis. The kidneys enh ance symmetrically. Excreted IV contrast is present within the renal collecting system and ureters. Abdominal vasculature: The abdominal aorta is normal in course and caliber noting advanced atheroscle rotic calcification. Bowel: There is no bowel obstruction. The bowel loops cannot be evaluated due to significant motion a rtifact. Question wall thickening and edema of the right colon and rectosigmoid. The appendix is non visualized. Peritoneum: There is no intraperitoneal free air or abdominal ascites. There is mesenteric edema. Lymphadenopathy: None. Pelvic viscera: The bladder is decompressed around a Holder catheter and not well evaluated. Gas and e xcrete contrast are present within the bladder lumen. Skeletal structures: No lytic or blastic lesions are seen. There acute right lateral 9th and 10th rib fractures. There is moderate lumbosacral spondylosis. Soft tissues: The patient is cachectic. There is diffuse body wall edema. IMPRESSION: 1. Severely streak and motion compromised examination. The examination is also degraded by lack of en teric contrast, patient cachexia, and diffuse edema. This degrades diagnostic utility. 2. Trace pleural effusions. 3. Heterogeneous liver. 4. There is no bowel obstruction. 5. Question wall thickening of the right colon and rectosigmoid. This is not well railways assistant clinical correlation will be required. 6. Acute right-sided rib fractures. 7. Additional findings as above. ACT 112: Negative or not required by law. Electronically signed by: Maldonado Moreno M.D. 11/04/2020 9:41 PM
[2020-11-04] MEDS: METOPROLOL TARTRATE 25 MG TAB PO SCH (22:11)
[2020-11-04 23:36] LABS: BUN Creatinine Ratio 20.3 (10-20); Blood Urea Nitrogen 6 mg/dl (7-18); Calcium 7.7 mg/dl (8.5-10.1); Carbon Dioxide 28 mmol/L (21-32); Chloride 90 mmol/L (98-107); Creatinine Clr Calc Pharmacy 229.8 ml/min; Est GFR (African American) > 150.0 ml/min; Est GFR (Non-African American) 149.4 ml/min; Glucose 94 mg/dl (70-99); Sodium 125 mmol/L (136-145)
[2020-11-05 00:53] LABS: BUN Creatinine Ratio 19.4 (10-20); Blood Urea Nitrogen 6 mg/dl (7-18); Calcium 7.6 mg/dl (8.5-10.1); Carbon Dioxide 30 mmol/L (21-32); Chloride 90 mmol/L (98-107); Creatinine Clr Calc Pharmacy 215.5 ml/min; Est GFR (African American) > 150.0 ml/min; Est GFR (Non-African American) 145.5 ml/min; Glucose 96 mg/dl (70-99); Potassium 3.3 mmol/L (3.5-5.1); Sodium 126 mmol/L (136-145)
[2020-11-05 00:57] LABS: Partial Thromboplastin Ratio 1.7
[2020-11-05 01:17] LABS: Partial Thromboplastin Time 45.8 Seconds (21.0-31.0)
[2020-11-05 04:04] LABS: BUN Creatinine Ratio 29.4 (10-20); Blood Urea Nitrogen 7 mg/dl (7-18); Calcium 7.2 mg/dl (8.5-10.1); Carbon Dioxide 28 mmol/L (21-32); Chloride 92 mmol/L (98-107); Creatinine Clr Calc Pharmacy 287.3 ml/min; Est GFR (African American) > 150.0 ml/min; Est GFR (Non-African American) > 150.0 ml/min; Glucose 88 mg/dl (70-99); Potassium 3.2 mmol/L (3.5-5.1); Sodium 126 mmol/L (136-145)
[2020-11-05 04:19] LABS: Creatine Kinase 2539 U/L (39-308); Phosphorus 1.8 mg/dl (2.5-4.9)
[2020-11-05] MEDS: METOPROLOL TARTRATE 25 MG TAB PO SCH (06:01)
[2020-11-05 08:20] LABS: Partial Thromboplastin Ratio 2.2
[2020-11-05] MEDS: LIDOCAINE 5% 1 PATCH TD SCH (08:20)
[2020-11-05] MEDS: POT PHOSPHATE MONOBASIC W/ SOD TAB PO SCH ×4 (08:25→20:12)
--- NOTE | 2020-11-05 08:28 | Electrocardiogram Report ---
Test Reason : Blood Pressure : / mmHG Vent. Rate : 116 BPM Atrial Rate : 138 BPM P-R Int : 000 ms QRS Dur : 094 ms QT Int : 360 ms P-R-T Axes : 000 063 036 degrees QTc Int : 500 ms Poor data quality, interpretation may be adversely affected Atrial fibrillation with rapid ventricular response Abnormal ECG When compared with ECG of 04-NOV-2020 00:54, Atrial fibrillation has replaced Sinus rhythm Vent. rate has increased BY 43 BPM Nonspecific T wave abnormality now evident in Inferior leads Nonspecific T wave abnormality, worse in Anterior leads Confirmed by Shane Pimentel ([id number]) on 11/05/2020 8:27:46 AM Also confirmed by Shane Pimentel ([id number]), supervising editor news reel Darius Tamez ([id number]) on 11/06/2020 7:48:00 AM Referred By: REFERRED SELF Confirmed By:Zeeshan Pimentel
[2020-11-05 08:35] LABS: Partial Thromboplastin Time 57.4 Seconds (21.0-31.0)
[2020-11-05 08:43] LABS: Albumin Level 2.5 gm/dl (3.4-5.0); Bilirubin Direct 0.3 mg/dl (0-0.2); Bilirubin,Total 0.9 mg/dl (0.2-1); Total Protein 5.3 gm/dl (6.4-8.2)
[2020-11-05] MEDS ORDERED: POTASSIUM CHLORIDE CRTAB 20 MEQ TABCR PO SCH (09:00)
--- NOTE | 2020-11-05 10:09 | Nephrology Progress Note ---
Date of Service November 05, 2020 Assessment & Plan (1) Hyponatremia: Plan: * Hypoosmolar hyponatremia. Normal thyroid and renal function. Clinically euvolemic. Low urine osmolality suggestive of polydipsia/potomania * Target 6 - 8 mmol/L correction of serum sodium over 24 hours * Rate of correction appear appropriate. Hold 3% saline and IVF for now * Recheck PRP this afternoon * Chest CT 11/04/20: Multiple calcified granulomas < 6 mm (follow up optional) (2) Hypokalemia: Plan: * Patient receiving KPO4 po this am. * Expect mild increase in Na as K is repleted (3) Acute urinary retention: Plan: * Bladder scan w/ 1900 cc urine at time of admission * Holder in place. UO 2700 cc overnight (4) Rhabdomyolysis: Plan: * CPK improved from 5,040 at time of admission to 2,539 this am Admission and Anticipated Discharge Date Admission Date: November 03, 2020 Subjective Mr. Chase was seen & examined in his hospital room this morning. He was oriented to self, place and month and able to follow one step commands. He currently denies fever, angina, dyspnea or abdominal pain. Review of Systems Constitutional: + weakness; no fever Eyes: no problem reported Ear, Nose, Mouth, Throat: no problem reported Respiratory: no cough and no dyspnea Cardiovascular: no chest pain, no palpitations and no edema Gastrointestinal: no abdominal pain, no nausea, no vomiting and no diarrhea/loose stools Genitourinary: + urinary hesitancy Musculoskeletal: no back pain Integumentary: no rash Neurologic: + falls Physical Exam Constitutional: + cachectic; not in distress Eyes: PERRL, conjunctivae normal, anicteric sclerae ENMT: Mouth: + dry oral mucous membranes Neck: trachea midline, no thyromegaly Respiratory: normal respiratory effort, lungs clear to auscultation Cardiovascular: RRR, no murmur, no edema Gastrointestinal (Abdomen): normal bowel sounds, soft, nontender, no hepatosplenomegaly Musculoskeletal: Extremities: no cyanosis Skin: Trauma: + periorbital ecchymosis (L eye) Neurologic: awake (oriented to self and place only) Results & Data ([facility]) Vital Signs (Past 12 Hours) Vital Signs Temp Pulse Pulse Resp BP BP Pulse Ox 11/05/20 07:40 36.7 C 95 H 16 113/70 98 11/05/20 06:56 36.8 C 11/05/20 06:38 97 H 12 108/74 98 11/05/20 06:08 106 H 96/67 L 100 11/05/20 05:38 108 H 97/61 L 99 11/05/20 05:08 93 H 11 L 80/54 L 98 11/05/20 04:38 97 H 90/55 L 99 11/05/20 04:08 92 H 97/64 L 99 11/05/20 03:38 95 H 110/68 99 11/05/20 03:08 99 H 14 95/61 L 99 11/05/20 02:38 101 H 92/63 L 100 11/05/20 02:08 97 H 10 L 91/60 L 100 11/05/20 01:38 89 10 L 93/64 L 98 11/05/20 01:09 98 H 16 100/70 99 11/05/20 00:43 36.8 C 11/05/20 00:38 99 H 11 L 96/67 L 99 11/05/20 00:08 91 H 11 L 85/61 L 100 11/04/20 23:38 96 H 9 L 98/61 L 100 11/04/20 23:08 97 H 11 L 98/68 L 99 11/04/20 22:38 99 H 14 107/69 98 11/04/20 22:08 106 H 102/71 99 Laboratory Results Laboratory Tests 11/04/20 11/05/20 04:51 03:05 Sodium 126 L Potassium 3.2 L Chloride 92 L Carbon Dioxide 28 BUN 7 Creatinine 0.24 L Glucose 88 Calcium 7.2 L Phosphorus 1.8 L Magnesium 2.0 Total Creatine Kinase 5040 H 2539 H PG Care Time/CCT Total # of Minutes Spent Total Time Spent with Patient: Total time spent is greater than 50% in coordination of care (as documented) at patient's floor/unit and/or counseling patient: Coding Level of Care Code 14087 Subseq Hosp Care Lvl 3 Diagnoses Hyponatremia E87.1 Hypokalemia E87.6 Acute urinary retention R33.8 Rhabdomyolysis M62.82
[2020-11-05 10:57] LABS: BUN Creatinine Ratio 21.5 (10-20); Blood Urea Nitrogen 6 mg/dl (7-18); Calcium 7.5 mg/dl (8.5-10.1); Carbon Dioxide 29 mmol/L (21-32); Chloride 90 mmol/L (98-107); Creatinine Clr Calc Pharmacy 224.8 ml/min; Est GFR (African American) > 150.0 ml/min; Est GFR (Non-African American) 149.4 ml/min; Glucose 97 mg/dl (70-99); Potassium 3.1 mmol/L (3.5-5.1); Sodium 127 mmol/L (136-145)
--- NOTE | 2020-11-05 15:33 | Communication Note ---
Date of Service: November 05, 2020 Patient unable to participate meaningfully in interview. Psychiatry will continue to follow and re-interview when patient's mental status improves.
--- NOTE | 2020-11-05 16:38 | Medical Student Progress Note ---
Date of Service November 05, 2020 Assessment & Plan (1) Altered mental status: Plan: Mr. Chase is a 55 y/o male with an unknown PMHx admitted to the ICU for altered mental status, a fall, and symptomatic hyponatremia. His sodium is trending upwards and he is more arousable at the bedside than he had been at admission. He is now PCU status and hemodynamically stable with AFib. 1. Altered Mental Status 2/2 Hypoosmolar Hyponatremia -Mentation continuing to improve with elevation of serum sodium -Na at admission: 114 -Received series of NSS boluses and received 3% hypertonic saline in the ICU -Na uptrending and is currently at 127 -Currently PCU status -Nephrology consult and recommendations appreciated; target 6 - 8 mmol/L correction of serum sodium over 24 hours -Fluid restriction, NaCl tablets, NaKPO4 supplement QID, and encouraging PO sodium intake to continue uptrending of sodium -discontinued DDAVP -q4 BMP checks 2. Elevated LFTs -AST: 150 (down from 223 on 11/04 --> 271 on 11/03), ALT: 145 (down from 170 on 11/04 --> 174 on 11/03) -- likely hepatocellular etiologies include viral or toxin -LDH: 704 on 11/04 -CT A/P not concerning for neoplasm -Continue trending LFTs 3. AFib -Occurred while in ICU -Highest HR: 110s, BP: 100s/60s -Began metoprolol succinate 25 mg daily -Metoprolol tartrate 12.5 mg discontinued -Echocardiogram ordered -Continue Heparin drip -Continue to monitor on tele 4. Cachexia/Protein Calorie Malnutrition -Albumin: 2.8 -Edematous secondary to hypoalbuminemia -Likely secondary to extended fast, want to r/o malignancy -Replete electrolytes, being weary of possibility of refeeding syndrome -Nutritional consult appreciated: recommended multivitamin and thiamine due to refeeding syndrome risk -IV Thiamine initiated -Trend electrolytes 5. Delusions -See subjective for examples -Psych consult: unable to have meaningful interview with patient due to mentation; will follow up with him once his mentation improves further 6. Normocytic Anemia -Hgb: 11.6, MCV: 83.8 -Peripheral smear: "There are no significant spherocytes or schistocytes to suggest a hemolytic anemia. If clinical concern is high, then additional testing to include haptoglobin and a LAMAR are recommended. Potential etiologies of a normocytic anemia include anemia of chronic disease, renal disease, hemorrhage, and nutritional deficiencies." 7. Rib Fracture -Likely secondary from fall -Lidocaine patch to manage pain as needed 8. Rhabdomyolysis -CK: 2539 (down from 5040 on 11/04) -Likely secondary to fall -BUN: 6, Cr: 0.3 9. Hypokalemia -K: 3.2 -Replete with KCl powder, NaKPO4 supplement 10. Pulmonary Nodule -Incidental findings on CXR -CT Chest: "Multiple calcified pulmonary nodule/granulomas. Noncalcified pulmonary micronodule within left upper lobe. Please note that in presence of high risk factors for pulmonary malignancy, follow-up evaluation for pulmonary nodules measuring less than 6 mm in size in 12 months is optional per Fleischner Society guidelines." 11. Hypoxia, Resolved -Currently 99% on RA DVT PPx: Heparin Drip FEN/GI: Minced and moist; fluid restriction; sodium PO Code: Full Dispo: PCU Altered mental status type: unspecified Qualified Code(s): R41.82 - Altered mental status, unspecified (2) Hyponatremia: (3) Elevated LFTs: (4) Atrial fibrillation: (5) Cachexia: (6) Delusion: (7) Normocytic anemia: (8) Rib fracture: (9) Hypokalemia: (10) Pulmonary nodules: (11) Hypoxia: Admission and Anticipated Discharge Date Admission Date: November 03, 2020 Supervising Attestation Patient seen and examined with ELMA Means. Agree with history, exam findings, assessment and plan of care as outlined. In brief, Mr. Chase is a 55 year old male with no known medical history admitted after being found down in his home by a family member. He was found to have symptomatic hyponatremia in the emergency room. A bit more awake today and conversational. no complaints. Denies chest pain, dyspnea, palpitations. Vital signs and nursing notes reviewed. Tachycardic, irregularly irregular. Lungs are clear to auscultation. Labs and imaging reviewed. 1. Metabolic encephalopathy. Due to hyponatremia (see below). Improving slightly as Na increases. 2. Hypoosmolar hyponatremia. Improving. Continue with fluid restriction. Appreciate nephrology recommendations. 3. Electrolyte derangement. Repleting. 4. Elevated LFTs. Hepatocellular pattern. Unremarkable CT Abd/Pelvis. Improving. 5. Afib with RVR. back in rapid rhythm late this afternoon. Due to soft BPs, started amio gtt. 6. Cachexia, protein-calorie malnutrition. Repleting electrolytes. Watch for re- feeding syndrome as PO intake increases. Appreciate dietary/nutrition recommendations. 7. Normocytic anemia. Likely secondary to nutritional deficiencies. 8. Right 9th and 10th rib fracture. Minimally displaced. Pulm toilet to prevent atelectasis. 9. Pulmonary nodule. Incidental finding. Follow up as outpatient. 10. Delusions. Concerning although may become more clear whether these are long held beliefs once sensorium clears a bit more. Appreciate psychiatry input. Dispo: pending clinical improvement. Subjective Mr. Chase was seen & examined in his hospital room this morning. He is eating breakfast in bed with the nurse, Herb at his bedside. She said he was oriented to self, place and month. Upon questioning, he is a bit slow to answer questions but is coherent. He currently denies pain, fever, abdominal pain, shortness of breath, or cough. Review of Systems Review of Systems: All systems reviewed & are unremarkable except as noted in Subjective Physical Exam Physical Exam: GENERAL - 55-year-old cachectic appearing male appearing older than his stated age who is in no acute distress. Slow to speak, but can answer questions. SKIN - Ecchymosis noted to the LEFT periorbital area. Jaundiced. HEAD - NC/AT. Anicetric sclerae. LUNGS - Lungs clear to auscultation bilaterally. No rales, wheezes, rhonchi, or stridor. Chest wall symmetric without accessory muscle use, intercostals retractions, or central cyanosis. CARDIAC - Irregularly irregular rhythm. No murmur, rubs, or gallops appreciated. EXTREMITIES - No clubbing or peripheral cyanosis. No pretibial edema present. Capillary refill < 2 sec. PSYCH -somnolent. Awakens and provides name and location. Provides yes/no answers as well as brief explanations. Results & Data ([facility]) Vital Signs (Past 12 Hours) Vital Signs Temp Pulse Pulse Resp BP BP Pulse Ox 11/05/20 15:55 36.4 C L 104 H 17 100/63 99 11/05/20 13:00 117 H 13 98 11/05/20 12:30 132 H 11 L 98/59 L 88 L 11/05/20 12:00 103 H 11 L 99 11/05/20 11:30 102 H 10 L 97 11/05/20 11:00 90 9 L 98 11/05/20 10:30 109 H 8 L 97 11/05/20 10:00 97 H 8 L 97 11/05/20 09:30 100 H 10 L 100 11/05/20 09:00 99 H 13 100 11/05/20 08:30 115 H 14 99 11/05/20 08:00 98 H 10 L 100 11/05/20 07:40 36.7 C 95 H 16 113/70 98 11/05/20 07:32 98 H 12 113/70 98 11/05/20 07:08 94 H 7 L 111/86 98 11/05/20 06:56 36.8 C 11/05/20 06:38 97 H 12 108/74 98 11/05/20 06:08 106 H 96/67 L 100 11/05/20 05:38 108 H 97/61 L 99 11/05/20 05:08 93 H 11 L 80/54 L 98 11/05/20 04:38 97 H 90/55 L 99 Laboratory Results Laboratory Results WBC 9.79 K/uL (4.8-10.8) 11/04/20 04:51 RBC 3.71 M/uL (4.7-6.1) L 11/04/20 04:51 Hgb 11.6 g/dL (14.0-18.0) L 11/04/20 04:51 Hct 31.1 % (42-52) L 11/04/20 04:51 MCV 83.8 fL (80-100) 11/04/20 04:51 MCH 31.3 pg (25-34) 11/04/20 04:51 MCHC 37.3 g/dL (32-36) H 11/04/20 04:51 RDW Std Deviation 38.6 fL (36.4-46.3) 11/04/20 04:51 RDW Coeff of Maryanne 12.6 % (11.5-14.5) 11/04/20 04:51 Plt Count 223 K/uL (130-400) 11/04/20 04:51 MPV 8.3 fL (7.4-10.4) 11/04/20 04:51 Immature Gran % (Auto) 0.4 % 11/04/20 04:51 Neut % (Auto) 84.0 % 11/04/20 04:51 Lymph % (Auto) 11.0 % 11/04/20 04:51 [place] % (Auto) 4.6 % 11/04/20 04:51 Eos % (Auto) 0.0 % 11/04/20 04:51 Baso % (Auto) 0.0 % 11/04/20 04:51 Neut # (Auto) 8.22 K/uL (1.4-6.5) H 11/04/20 04:51 Lymph # (Auto) 1.08 K/uL (1.2-3.4) L 11/04/20 04:51 [place] # (Auto) 0.45 K/uL (0.11-0.59) 11/04/20 04:51 Eos # (Auto) 0.00 K/uL (0-0.5) 11/04/20 04:51 Baso # (Auto) 0.00 K/uL (0-0.2) 11/04/20 04:51 Immature Gran # (Auto) 0.04 K/uL (0.00-0.02) H 11/04/20 04:51 Echinocytes 1+ 11/03/20 20:27 Peripher Smr Path Cons 11/05/20 03:05 ESR 3 mm/hr (0-20) 11/04/20 04:51 PT 10.8 Seconds (9.0-12.0) 11/03/20 22:51 INR 1.1 (0.9-1.1) 11/03/20 22:51 APTT 57.4 Seconds (21.0-31.0) H* 11/05/20 07:41 PTT Ratio 2.2 11/05/20 07:41 Sodium 127 mmol/L (136-145) L 11/05/20 10:04 Potassium 3.1 mmol/L (3.5-5.1) L 11/05/20 10:04 Chloride 90 mmol/L (98-107) L 11/05/20 10:04 Carbon Dioxide 29 mmol/L (21-32) 11/05/20 10:04 Anion Gap 8.0 (3-11) 11/05/20 10:04 BUN 6 mg/dl (7-18) L 11/05/20 10:04 Creatinine 0.30 mg/dl (0.6-1.4) L 11/05/20 10:04 Est Cr Clr Drug Dosing 224.8 ml/min 11/05/20 10:04 Est GFR ( Amer) > 150.0 ml/min 11/05/20 10:04 Est GFR (Non-Af Amer) 149.4 ml/min 11/05/20 10:04 BUN/Creatinine Ratio 21.5 (10-20) H 11/05/20 10:04 Glucose 97 mg/dl (70-99) 11/05/20 10:04 Osmolality 237 mOsm/kg (280-300) L* 11/03/20 22:50 Calcium 7.5 mg/dl (8.5-10.1) L 11/05/20 10:04 Phosphorus 1.8 mg/dl (2.5-4.9) L 11/05/20 03:05 Magnesium 2.0 mg/dl (1.8-2.4) 11/05/20 03:05 Total Bilirubin 0.9 mg/dl (0.2-1) D 11/05/20 07:35 Direct Bilirubin 0.3 mg/dl (0-0.2) H 11/05/20 07:35 AST 150 U/L (15-37) H 11/05/20 07:35 ALT 145 U/L (12-78) H 11/05/20 07:35 Alkaline Phosphatase 47 U/L (45-117) 11/05/20 07:35 Ammonia < 10.0 umol/L (11-32) L 11/04/20 01:14 Lactate Dehydrogenase 704 U/L (87-241) H 11/04/20 04:51 Total Creatine Kinase 2539 U/L (39-308) H 11/05/20 03:05 Troponin I < 0.015 ng/ml (0-0.045) 11/03/20 20:27 C-Reactive Protein 8.34 mg/dl (0-0.29) H 11/04/20 04:51 Total Protein 5.3 gm/dl (6.4-8.2) L 11/05/20 07:35 Albumin 2.5 gm/dl (3.4-5.0) L 11/05/20 07:35 Globulin 2.6 gm/dl (2.5-4.0) 11/03/20 20:27 Albumin/Globulin Ratio 1.0 (0.9-2) 11/03/20 20:27 Procalcitonin 0.36 ng/ml (0-0.5) 11/04/20 04:51 TSH 1.070 uIu/ml (0.300-4.500) 11/03/20 20: Random Cortisol 27.43 mcg/dl 11/04/20 01:14 Urine Color Yellow 11/03/20 20:00 Urine Appearance Clear (Clear) 11/03/20 20:00 Urine pH 5.0 (4.5-7.5) 11/03/20 20:00 Ur Specific [place] 1.012 (1.000-1.030) 11/03/20 20:00 Urine Protein Negative (Negative) 11/03/20 20:00 Urine Glucose (UA) Negative (Negative) 11/03/20 20:00 Urine Ketones Trace (Negative) H 11/03/20 20:00 Urine Blood Negative (Negative) 11/03/20 20:00 Urine Nitrite Negative (Negative) 11/03/20 20:00 Urine Bilirubin Negative (Negative) 11/03/20 20:00 Urine Urobilinogen Negative (Negative) 11/03/20 20:00 Ur Leukocyte Esterase Negative (Negative) 11/03/20 20:00 Urine Osmolality 139 mOsm/kg (500-800) L 11/03/20 Unknown Urine Sodium 11 mmol/L 11/03/20 Unknown Urine Potassium 8.1 mmol/L 11/03/20 Unknown Urine Chloride < 10 mmol/L 11/03/20 Unknown Nasal Screen MRSA (PCR) Negative (Negative) 11/03/20 22:55 COVID-19 Eval Order Covid19 at [facility] 11/03/20 20:20 SARS-CoV-2 (PCR) NEGATIVE (Negative) 11/03/20 20:20 Impressions Chest X-Ray 11/03/20 19:52 XR chest 1V portable CLINICAL HISTORY: weakness COMPARISON STUDY: No previous studies for comparison. FINDINGS: No pneumothorax. No pleural effusion. No large infiltrates or consolidative lesions are seen. Cardiac silhouette is within normal limits in size. There is questionable focal widening of the mediastinum at the region of the right hilum which could be due to tortuous aorta versus other etiology. No significant pulmonary vascular congestion.. Aorta is calcified Osseous structures: Mild degenerative changes of the spine. IMPRESSION: 1. No large infiltrates or consolidative lesions are seen, however there is questionable prominence of the mediastinum at the region of the right hilum which could be due to aortic tortuosity however mediastinal lymphadenopathy/mass cannot be completely ruled out. Further evaluation with CT of the chest is suggested. ACT 112: Negative or not required by law. The above report was generated using voice recognition software. It may contain grammatical, syntax or spelling errors. Electronically signed by: Keren Dixon DO 11/03/2020 8:[address] 11/03/20 19:53 CT cervical spine wo con CLINICAL HISTORY: 55 years-old Male with falls. Acute head and neck injury status post fall COMPARISON: CT head and maxillofacial same day TECHNIQUE: Multiple axial CT images of the cervical spine were obtained without contrast. A dose lowering technique was utilized adhering to the principles of ALARA. FINDINGS: Moderate intervertebral disc space narrowing and spondylitic spurring posterior disc osteophyte complex at C5-C6. Minimal multilevel uncovertebral spurring with moderate multilevel left-sided facet arthrosis. No acute fracture or subluxation. Multilevel neural foraminal narrowing. No pneumothorax. Calcified plaque of the carotid bulbs. No prevertebral edema. IMPRESSION: No acute fracture or subluxation. ACT 112: Negative or not required by law. The above report was generated using voice recognition software. It may contain grammatical, syntax or spelling errors. Electronically signed by: Jacob Goodrich M.D. 11/04/2020 7:[address] 11/03/20 19:[address] DOSE: 1039.65 mGy.cm HISTORY: s/p falls TECHNIQUE: Multiaxial CT images of the maxillofacial region were performed and reformatted in the coronal plane without the use of contrast. A dose lowering technique was utilized adhering to the principles of ALARA. COMPARISON: None. FINDINGS: The visualized cervical spine, skull base, pterygoid plates, nasal bones, lamina papyracea, orbital floors, mandible, and zygomatic arches are intact. No fractures. The orbits are unremarkable. Mild left periorbital soft tissue swelling. Mild to moderate mucosal thickening within the right maxillary sinus. Degenerative changes at the temporomandibular joints. IMPRESSION: No fractures within the maxillofacial region. Mild left periorbital soft tissue swelling. ACT 112: Negative or not required by law. Electronically signed by: Reagan Amaral M.D. 11/04/2020 7:[address] 11/03/20 19:[address] DOSE: HISTORY: falls TECHNIQUE: Multiaxial CT images of the head were performed without the use of intravenous contrast. Automated exposure control was utilized for this study. A dose lowering technique was utilized adhering to the principles of ALARA. Comparison: None. Findings: Mild mucosal thickening and a trace fluid level within the right maxillary sinus. The mastoid air cells are clear. Mild left periorbital soft tissue swelling. The calvarium and skull base are intact. The ventricles and sulci are within normal limits. There is no mass, hematoma, midline shift, or acute infarct. Impression: No acute intracranial abnormality. Left periorbital soft tissue swelling. ACT 112: Negative or not required by law. Electronically signed by: Reagan Amaral M.D. 11/04/2020 7:[address] 11/04/20 07:33 CT OF THE CHEST WITH IV CONTRAST CLINICAL HISTORY: hilar fullness COMPARISON STUDY: No previous studies for comparison. TECHNIQUE: Following the IV administration of 94 mL of Optiray, CT of the thorax was performed from the thoracic inlet to the lung bases. Images are reviewed in the axial, sagittal, and coronal planes. IV contrast was ad ministered without complication. A dose lowering technique was utilized adhering to the principles of ALARA. CT DOSE: 216.54 mGy.cm FINDINGS: Thyroid: Visualized portion of thyroid gland shows no evidence of focal lesions. There is no axillary, supra clavicle or internal mammary lymphadenopathy seen. No mediastinal or hilar lymphadenopathy seen. Thoracic aorta: The thoracic aorta is normal in course and caliber, noting standard 3-vessel arch anatomy. No aneurysm or dissection is seen. Pulmonary vasculature: Is normal in caliber. HEART: Is normal in size without pericardial effusion. Heavy calcifications of coronary arteries and possible stents are seen. Lungs and pleural spaces: Tracheobronchial tree is patent. Small amount of secretion is seen at dependent portion of the intrathoracic trachea extending to the right mainstem bronchus. Mild atelectasis is seen at dependent portions of bilateral lower lobes. No pleural effusion is seen. Evaluation of lung parenchyma is limited due to motion artifact. Multiple calcified granulomas are seen throughout bilateral lungs. 3 mm micronodule is seen within left upper lobe (4/172) Upper abdomen: Partially visualized upper abdominal viscera is within normal limits. Skeletal structures: Slightly displaced acute fracture deformity of the lateral aspect of the right 10th rib is seen. Mild multilevel degenerative changes of the spine. Patient is cachetic. IMPRESSION: 1. Mediastinal vascular structures appear normal. No mediastinal lymphadenopathy seen. 2. Slightly displaced fracture at the right 10th rib. 3. Minimal atelectasis at bilateral bases. No infiltrates or consolidative lesions. Limited exam due to motion artifact. 4. Multiple calcified pulmonary nodule/granulomas. Noncalcified pulmonary micronodule within left upper lobe. Please note that in presence of high risk factors for pulmonary malignancy, follow-up evaluation for pulmonary nodules measuring less than 6 mm in size in 12 months is optional per Fleischner Society guidelines. 5. Cachexia Please refer to below summary of Fleischner criteria recommendations for follow- up of incidental CT nodules (Kacey Anderson, Guidelines for management of small pulmonary nodules detected on CT scans: A statement from the Fleischner Society, Radiology 237: [phone].) SOLID NODULES Solitary nodule size: <6 mm * low risk patients: no follow-up needed * high risk patients: optional CT at 12 months Solitary nodule size: 6-8 mm * low risk patients: follow-up at 6-12 months, then consider further follow-up at 18-24 months * high risk patients: initial follow-up CT at 6-12 months and then at 18-24 months if no change Solitary nodule size: >8 mm * either low or high risk patients - consider follow-up CT at 3 months, and/or CT-PET, and/or biopsy Multiple nodules size: <6 mm * low risk patients: no routine follow-up * high risk patients: optional CT at 12 months Multiple nodules size: 6-8 mm * low risk patients: follow-up at 3-6 months, then consider further follow-up at 18-24 months * high risk patients: follow-up at 3-6 months, then at 18-24 months if no change Multiple nodules size: >8 mm * low risk patients: follow-up at 3-6 months, then consider further follow-up at 18-24 months * high risk patients: follow-up at 3-6 months, then at 18-24 months if no change Note: newly detected indeterminate nodule in persons 35 years of age or older. * low risk patients: minimal or absent history of smoking and/or other known risk factors * high risk patients: history of smoking or of other known risk factors (e.g. first degree relative with lung cancer, or exposure to asbestos, radon, uranium) * if a nodule up to 8 mm is partly solid or is ground glass further follow-up is required after 24 months to exclude possible slow growing adenocarcinoma (KATE) SUBSOLID NODULES Solitary pure ground-glass nodule * nodule size <6 mm - no CT follow-up required * nodule size >=6 mm - follow-up CT at 6-12 months, then every 2 years until 5 years Solitary part-solid nodule * nodule size <6 mm - no CT follow-up required * nodule size >=6 mm - follow-up CT at 3-6 months. If unchanged, and solid component remains <6 mm, then annual follow-up for 5 years Multiple subsolid nodules * nodule size <6 mm - follow-up CT at 3-6 months, consider further follow-up at 2 and 4 years if stable * nodule size >=6 mm - follow-up CT at 3-6 months, subsequent management based on the most suspicious nodule(s) ACT 112: Positive. There are findings on this exam that require communication between the performing entity and the patient following Patient Test Result Information Act ([place] Act 112) guidelines. The above report was generated using voice recognition software. It may contain grammatical, syntax or spelling errors. Electronically signed by: Keren Dixon DO 11/04/2020 10:27 AM Abdomen/Pelvis CT 11/04/20 16:33 CT SCAN OF THE ABDOMEN AND PELVIS WITH IV CONTRAST CLINICAL HISTORY: Elevated hepatic transaminases. COMPARISON STUDY: No priors. TECHNIQUE: Following the IV administration of 94 cc of Optiray 320, CT scan of the abdomen and pelvis is performed from the lung bases to the proximal femora. Images are reviewed in the axial, sagittal, and coronal planes. IV contrast was administered without complication. Examination is suboptimal without oral contrast. A dose lowering technique was utilized adhering to the principles of ALARA. The examination is degraded by motion artifact, and by streak artifact from the arms which could not be elevated above the abdomen. CT DOSE: 437.56 mGy.cm FINDINGS: Lung bases: The heart is normal in size and without pericardial effusion. The coronary arteries are densely calcified. Evaluation of the lung parenchyma is degraded by motion artifact. Edematous change is noted. There are scattered calcified granulomas. There are trace pleural effusions with dependent atelectasis. Liver: The contrast-enhanced liver is normal in size and contour. Attenuation is heterogeneous. There is no intrahepatic biliary ductal dilatation. The hepatic veins and portal veins are patent. Gallbladder: Unremarkable. Spleen: Normal in size and attenuation. Pancreas: Grossly unremarkable. Adrenal glands: Unremarkable. Kidneys: The contrast enhanced kidneys are normal in size and without hydronephrosis. The kidneys enhance symmetrically. Excreted IV contrast is present within the renal collecting system and ureters. Abdominal vasculature: The abdominal aorta is normal in course and caliber noting advanced atherosclerotic calcification. Bowel: There is no bowel obstruction. The bowel loops cannot be evaluated due to significant motion artifact. Question wall thickening and edema of the right colon and rectosigmoid. The appendix is nonvisualized. Peritoneum: There is no intraperitoneal free air or abdominal ascites. There is mesenteric edema. Lymphadenopathy: None. Pelvic viscera: The bladder is decompressed around a Holder catheter and not well evaluated. Gas and excrete contrast are present within the bladder lumen. Skeletal structures: No lytic or blastic lesions are seen. There acute right lateral 9th and 10th rib fractures. There is moderate lumbosacral spondylosis. Soft tissues: The patient is cachectic. There is diffuse body wall edema. IMPRESSION: 1. Severely streak and motion compromised examination. The examination is also degraded by lack of enteric contrast, patient cachexia, and diffuse edema. This degrades diagnostic utility. 2. Trace pleural effusions. 3. Heterogeneous liver. 4. There is no bowel obstruction. 5. Question wall thickening of the right colon and rectosigmoid. This is not well orthotics assistant clinical correlation will be required. 6. Acute right-sided rib fractures. 7. Additional findings as above. ACT 112: Negative or not required by law. Electronically signed by: Maldonado Moreno M.D. 11/04/2020 9:41 PM Medications Administered Current Inpatient Medications Heparin Sodium/Dextrose (Heparin Sodium/Dextrose) 25,000 units in 500 mls @ 22 mls/hr IV .[id number] FOR[facility]LY [facility], 1928[facility]1983; Protocol Stop: 12/04/20 16:44 Last Titration: 11/05/20 01:23 Dose: 1,100 units/hr, 22 mls/hr Documented by: Lidocaine (Lidocaine 5% 1 Patch) 1 patch TD [facility] Stop: 12/05/20 08:59 Last Admin: 11/05/20 08:20 Dose: 1 patch Documented by: Metoprolol Succinate (Metoprolol Succ 25mg Ext Rel Tab) [facility] [place] Stop: 12/06/20 08:59 Miscellaneous (Remove Lidoderm Patch) 1 ea N/A DAILY@2100 [facility] Stop: 12/04/20 20:59 Last Admin: 11/04/20 22:03 Dose: Not Given Documented by: Multivitamins/Minerals (Cerovite Adv Formula Tab) 1 tab PO QAM [facility], [facility]1983 Stop: 12/06/20 08:59 Potassium Chloride (Potassium Chloride Pwd 20 Meq Pack) 40 meq PO BID [facility]1983 Stop: 12/05/20 20:59 Potassium Phosphate (Pot Phosphate Monobasic W/ Sod Tab) 1 tab PO QID [facility], [facility]–1983 Stop: 12/05/20 08:59 Last Admin: 11/05/20 12:28 Dose: 1 tab Documented by: Thiamine HCl (Thiamine Hcl 100 Mg Tab) 100 mg PO QAM [facility], 1928–1983 Stop: 12/06/20 08:59
[2020-11-05 17:24] LABS: BUN Creatinine Ratio 27.5 (10-20); Blood Urea Nitrogen 7 mg/dl (7-18); Calcium 7.5 mg/dl (8.5-10.1); Carbon Dioxide 28 mmol/L (21-32); Chloride 91 mmol/L (98-107); Creatinine Clr Calc Pharmacy 269.7 ml/min; Est GFR (African American) > 150.0 ml/min; Est GFR (Non-African American) > 150.0 ml/min; Glucose 97 mg/dl (70-99); Potassium 3.1 mmol/L (3.5-5.1); Sodium 125 mmol/L (136-145)
[2020-11-05] MEDS: HEPARIN SODIUM/DEXTROSE 25,000 UNITS/500 ML BAG IV SCH (17:41)
[2020-11-05] MEDS ORDERED: STAT IV Infusion **Titration per Protocol STA (18:16)
[2020-11-05] MEDS ORDERED: AMIODARONE IV BOLUS & DRIP IV STA (18:16)
[2020-11-05] MEDS ORDERED: AMIODARONE / D5W 150 MG/100 ML BAG IV STA (18:16)
[2020-11-05] MEDS ORDERED: AMIODARONE / D5W 360 MG/200 ML BAG IV ONE (18:30)
[2020-11-05] MEDS ORDERED: 0.2 MICRON FILTER SET 1 EA IV ONE (18:30)
--- NOTE | 2020-11-05 18:55 | XCELERA ---
[id number]
[2020-11-05] MEDS: POTASSIUM CHLORIDE PWD 20 MEQ PACK PO SCH (20:12)
[2020-11-06] MEDS: AMIODARONE / D5W 360 MG/200 ML BAG IV SCH ×2 (01:28→13:35)
[2020-11-06 08:00] LABS: BUN Creatinine Ratio 20.4 (10-20); Blood Urea Nitrogen 7 mg/dl (7-18); Calcium 7.4 mg/dl (8.5-10.1); Carbon Dioxide 29 mmol/L (21-32); Chloride 91 mmol/L (98-107); Creatinine Clr Calc Pharmacy 195.5 ml/min; Est GFR (African American) > 150.0 ml/min; Est GFR (Non-African American) 137.1 ml/min; Glucose 101 mg/dl (70-99); Magnesium 2.2 mg/dl (1.8-2.4); Potassium 3.5 mmol/L (3.5-5.1); Sodium 125 mmol/L (136-145)
[2020-11-06 08:14] LABS: Creatine Kinase 814 U/L (39-308); Phosphorus 2.7 mg/dl (2.5-4.9)
--- NOTE | 2020-11-06 08:23 | Medical Student Progress Note ---
Date of Service November 06, 2020 Assessment & Plan (1) Altered mental status: Plan: Mr. Chase is a 55 y/o male with an unknown PMHx admitted to the ICU on 11/03 for altered mental status, a fall, and symptomatic hyponatremia. His sodium is relatively unchanged from yesterday, but he is more arousable at the bedside than he had been yesterday. He is now PCU status and hemodynamically stable, having converted from AFib to sinus rhythm. 1. Altered Mental Status 2/2 Hypoosmolar Hyponatremia -Mentation continuing to improve -Na at admission: 114 -Received series of NSS boluses and received 3% hypertonic saline in the ICU -Na currently at 126, was 127 at its peak 11/05 -Currently PCU status -Nephrology consult and recommendations appreciated; target 6 - 8 mmol/L correction of serum sodium over 24 hours -Fluid restriction, NaCl tablets, NaKPO4 supplement QID, and encouraging PO sodium intake to continue uptrending of sodium -discontinued DDAVP -qAM BMP checks 2. Cachexia/Protein Calorie Malnutrition -Albumin: 2.8 (11/05) -Edematous abdomen secondary to hypoalbuminemia -Likely secondary to extended fast, want to r/o malignancy -Replete electrolytes, being weary of possibility of refeeding syndrome -Nutritional consult appreciated: recommended multivitamin and thiamine due to refeeding syndrome risk -IV Thiamine -Trend electrolytes 3. AFib -Occurred while in ICU -Highest HR: 110s, BP: 100s/60s -HR elevated last evening (120s); began amiodarone drip, will continue -Converted from AFib 120s to sinus 70s/80s after amiodarone, has been sinus since -Continue metoprolol succinate 25 mg daily -Echocardiogram unremarkable: EF 55-60%, mild/moderate mitral annular calcification -Continue Heparin drip -Continue to monitor on tele 4. Elevated LFTs, resolving -AST: 150 on 11/05 (down from 223 on 11/04 --> 271 on 11/03), ALT: 145 (down from 170 on 11/04 --> 174 on 11/03) -- likely hepatocellular etiologies include viral or toxin -LDH: 704 on 11/04 -CT A/P not concerning for neoplasm -Trend LFTs 5. Delusions -See subjective for examples -Psych consult: unable to have meaningful interview with patient due to mentation; will follow up with him once his mentation improves further 6. Normocytic Anemia -Hgb: 11.6, MCV: 83.8 -Peripheral smear: "There are no significant spherocytes or schistocytes to suggest a hemolytic anemia. If clinical concern is high, then additional testing to include haptoglobin and a LAMAR are recommended. Potential etiologies of a normocytic anemia include anemia of chronic disease, renal disease, hemorrhage, and nutritional deficiencies." 7. Rib Fracture -Likely secondary from fall -Lidocaine patch to manage pain as needed 8. Rhabdomyolysis, Resolving -CK: 814 (down from 2539 on 11/05 --> 5040 on 11/04) -Likely secondary to fall -BUN: 7, Cr: 0.37 9. Hypokalemia, Resolving -K: 3.5 -Continual repletion with KCl powder, NaKPO4 supplement 10. Pulmonary Nodule -Incidental findings on CXR -CT Chest: "Multiple calcified pulmonary nodule/granulomas. Noncalcified pulmonary micronodule within left upper lobe. Please note that in presence of high risk factors for pulmonary malignancy, follow-up evaluation for pulmonary nodules measuring less than 6 mm in size in 12 months is optional per Fleischner Society guidelines." 11. Hypoxia, Resolved -Currently 99% on RA DVT PPx: Heparin Drip FEN/GI: Minced and moist; fluid restriction; sodium PO Code: Full Dispo: PCU Altered mental status type: unspecified Qualified Code(s): R41.82 - Altered mental status, unspecified (2) Hyponatremia: (3) Elevated LFTs: (4) Atrial fibrillation: (5) Cachexia: (6) Delusion: (7) Normocytic anemia: (8) Rib fracture: (9) Hypokalemia: (10) Pulmonary nodules: (11) Hypoxia: Admission and Anticipated Discharge Date Admission Date: November 03, 2020 Supervising Attestation Attending attestation Pt seen and examined in concert with St. Dr. Clary Mays. In agreement with the documented findings as noted in the resident documentation with any exceptions or additions as noted here. Upright in bed while eating but with waxing and waning focus, unable to answer orientation questions fully at present. On examination, S1/S2 nl RRR no MCG. CTAB. Abd NT/ND BS+ve Altered mental status - metabolic encephalopathy with hypoosmolar hyponatremia v. underlying psychiatric issue - trend BMP. Continue fluid restriction. Psychiatry consultation appreciated. Close monitoring Transaminitis - downtrending, repeat in AM for stability/continued improvement Cachexia, protein-calorie malnutrition - careful monitoring of electrolytes. N utritional support Else see resident documentation as noted. Subjective Overall, patient is stable since last evening. He is still a bit slow to speak, but can answer questions and is oriented to name, place, and date. He does not endorse any pain, fever, chills, shortness of breath, chest pain, headache, or belly ache. Review of Systems Review of Systems: All systems reviewed & are unremarkable except as noted in Subjective Physical Exam Physical Exam: GENERAL - 55-year-old cachectic appearing male appearing older than his stated age who is in no acute distress. Slow to speak, but can answer questions. SKIN - Ecchymosis noted to the LEFT periorbital area. Jaundiced. HEAD - NC/AT. Anicetric sclerae. LUNGS - Lungs clear to auscultation bilaterally. No rales, wheezes, rhonchi, or stridor. Chest wall symmetric without accessory muscle use, intercostals retractions, or central cyanosis. CARDIAC - Regular rate and rhythm. No murmur, rubs, or gallops appreciated. ABDOMEN - Edematous abdomen. Normoactive bowel sounds. EXTREMITIES - No clubbing or peripheral cyanosis. No pretibial edema present. Capillary refill < 2 sec. PSYCH -somnolent. Awakens and provides name and location. Provides yes/no answers as well as brief explanations. Results & Data ([facility]) Vital Signs (Past 12 Hours) Vital Signs Temp Pulse Pulse Resp BP Pulse Ox 11/06/20 03:10 36.6 C 73 16 110/67 97 11/05/20 23:42 82 11/05/20 23:31 36.9 C 83 16 100/60 96 Laboratory Results Laboratory Results WBC 9.79 K/uL (4.8-10.8) 11/04/20 04:51 RBC 3.71 M/uL (4.7-6.1) L 11/04/20 04:51 Hgb 11.6 g/dL (14.0-18.0) L 11/04/20 04:51 Hct 31.1 % (42-52) L 11/04/20 04:51 MCV 83.8 fL (80-100) 11/04/20 04:51 MCH 31.3 pg (25-34) 11/04/20 04:51 MCHC 37.3 g/dL (32-36) H 11/04/20 04:51 RDW Std Deviation 38.6 fL (36.4-46.3) 11/04/20 04:51 RDW Coeff of Maryanne 12.6 % (11.5-14.5) 11/04/20 04:51 Plt Count 223 K/uL (130-400) 11/04/20 04:51 MPV 8.3 fL (7.4-10.4) 11/04/20 04:51 Immature Gran % (Auto) 0.4 % 11/04/20 04:51 Neut % (Auto) 84.0 % 11/04/20 04:51 Lymph % (Auto) 11.0 % 11/04/20 04:51 [place] % (Auto) 4.6 % 11/04/20 04:51 Eos % (Auto) 0.0 % 11/04/20 04:51 Baso % (Auto) 0.0 % 11/04/20 04:51 Neut # (Auto) 8.22 K/uL (1.4-6.5) H 11/04/20 04:51 Lymph # (Auto) 1.08 K/uL (1.2-3.4) L 11/04/20 04:51 [place] # (Auto) 0.45 K/uL (0.11-0.59) 11/04/20 04:51 Eos # (Auto) 0.00 K/uL (0-0.5) 11/04/20 04:51 Baso # (Auto) 0.00 K/uL (0-0.2) 11/04/20 04:51 Immature Gran # (Auto) 0.04 K/uL (0.00-0.02) H 11/04/20 04:51 Echinocytes 1+ 11/03/20 20:27 Peripher Smr Path Cons 11/05/20 03:05 ESR 3 mm/hr (0-20) 11/04/20 04:51 PT 10.8 Seconds (9.0-12.0) 11/03/20 22:51 INR 1.1 (0.9-1.1) 11/03/20 22:51 APTT 64.4 Seconds (21.0-31.0) H* 11/06/20 10:19 PTT Ratio 2.4 11/06/20 10:19 Sodium 126 mmol/L (136-145) L 11/06/20 14:27 Potassium 3.6 mmol/L (3.5-5.1) 11/06/20 14:27 Chloride 89 mmol/L (98-107) L 11/06/20 14:27 Carbon Dioxide 32 mmol/L (21-32) 11/06/20 14:27 Anion Gap 5.0 (3-11) 11/06/20 14:27 BUN 7 mg/dl (7-18) 11/06/20 14:27 Creatinine 0.52 mg/dl (0.6-1.4) L 11/06/20 14:27 Est Cr Clr Drug Dosing 139.1 ml/min 11/06/20 14:27 Est GFR ( Amer) 138.2 ml/min 11/06/20 14:27 Est GFR (Non-Af Amer) 119.2 ml/min 11/06/20 14:27 BUN/Creatinine Ratio 13.0 (10-20) 11/06/20 14:27 Glucose 116 mg/dl (70-99) H 11/06/20 14:27 Osmolality 237 mOsm/kg (280-300) L* 11/03/20 22:50 Calcium 7.6 mg/dl (8.5-10.1) L 11/06/20 14:27 Phosphorus 2.7 mg/dl (2.5-4.9) 11/06/20 06:56 Magnesium 2.2 mg/dl (1.8-2.4) 11/06/20 06:56 Total Bilirubin 0.9 mg/dl (0.2-1) D 11/05/20 07:35 Direct Bilirubin 0.3 mg/dl (0-0.2) H 11/05/20 07:35 AST 150 U/L (15-37) H 11/05/20 07:35 ALT 145 U/L (12-78) H 11/05/20 07:35 Alkaline Phosphatase 47 U/L (45-117) 11/05/20 07:35 Ammonia < 10.0 umol/L (11-32) L 11/04/20 01:14 Lactate Dehydrogenase 704 U/L (87-241) H 11/04/20 04:51 Total Creatine Kinase 814 U/L (39-308) H 11/06/20 06:56 Troponin I < 0.015 ng/ml (0-0.045) 11/03/20 20:27 C-Reactive Protein 8.34 mg/dl (0-0.29) H 11/04/20 04:51 Total Protein 5.3 gm/dl (6.4-8.2) L 11/05/20 07:35 Albumin 2.5 gm/dl (3.4-5.0) L 11/05/20 07:35 Globulin 2.6 gm/dl (2.5-4.0) 11/03/20 20:27 Albumin/Globulin Ratio 1.0 (0.9-2) 11/03/20 20:27 Procalcitonin 0.36 ng/ml (0-0.5) 11/04/20 04:51 TSH 1.070 uIu/ml (0.300-4.500) 11/03/20 20:27 Random Cortisol 27.43 mcg/dl 11/04/20 01:14 Urine Color Yellow 11/03/20 20:00 Urine Appearance Clear (Clear) 11/03/20 20:00 Urine pH 5.0 (4.5-7.5) 11/03/20 20:00 Ur Specific [place] 1.012 (1.000-1.030) 11/03/20 20:00 Urine Protein Negative (Negative) 11/03/20 20:00 Urine Glucose (UA) Negative (Negative) 11/03/20 20:00 Urine Ketones Trace (Negative) H 11/03/20 20:00 Urine Blood Negative (Negative) 11/03/20 20:00 Urine Nitrite Negative (Negative) 11/03/20 20:00 Urine Bilirubin Negative (Negative) 11/03/20 20:00 Urine Urobilinogen Negative (Negative) 11/03/20 20:00 Ur Leukocyte Esterase Negative (Negative) 11/03/20 20:00 Urine Osmolality 584 mOsm/kg (500-800) 11/06/20 09:35 Urine Sodium 11 mmol/L 11/03/20 Unknown Urine Potassium 8.1 mmol/L 11/03/20 Unknown Urine Chloride < 10 mmol/L 11/03/20 Unknown Nasal Screen MRSA (PCR) Negative (Negative) 11/03/20 22:55 COVID-19 Eval Order Covid19 at [facility] 11/03/20 20:20 SARS-CoV-2 (PCR) NEGATIVE (Negative) 11/03/20 20:20 Urine Legionella Ag SEE NOTE 11/04/20 04:04 Impressions Chest X-Ray 11/03/20 19:52 XR chest 1V portable CLINICAL HISTORY: weakness COMPARISON STUDY: No previous studies for comparison. FINDINGS: No pneumothorax. No pleural effusion. No large infiltrates or consolidative lesions are seen. Cardiac silhouette is within normal limits in size. There is questionable focal widening of the mediastinum at the region of the right hilum which could be due to tortuous aorta versus other etiology. No significant pulmonary vascular congestion.. Aorta is calcified Osseous structures: Mild degenerative changes of the spine. IMPRESSION: 1. No large infiltrates or consolidative lesions are seen, however there is questionable prominence of the mediastinum at the region of the right hilum which could be due to aortic tortuosity however mediastinal lymphadenopathy/mass cannot be completely ruled out. Further evaluation with CT of the chest is suggested. ACT 112: Negative or not required by law. The above report was generated using voice recognition software. It may contain grammatical, syntax or spelling errors. Electronically signed by: Keren Dixon DO 11/03/2020 8:[address] 11/03/20 19:53 CT cervical spine wo con CLINICAL HISTORY: 55 years-old Male with falls. Acute head and neck injury status post fall COMPARISON: CT head and maxillofacial same day TECHNIQUE: Multiple axial CT images of the cervical spine were obtained without contrast. A dose lowering technique was utilized adhering to the principles of ALARA. FINDINGS: Moderate intervertebral disc space narrowing and spondylitic spurring posterior disc osteophyte complex at C5-C6. Minimal multilevel uncovertebral spurring with moderate multilevel left-sided facet arthrosis. No acute fracture or subluxation. Multilevel neural foraminal narrowing. No pneumothorax. Calcified plaque of the carotid bulbs. No prevertebral edema. IMPRESSION: No acute fracture or subluxation. ACT 112: Negative or not required by law. The above report was generated using voice recognition software. It may contain grammatical, syntax or spelling errors. Electronically signed by: Jacob Goodrich M.D. 11/04/2020 7:[address] 11/03/20 19:[address] DOSE: 1039.65 mGy.cm HISTORY: s/p falls TECHNIQUE: Multiaxial CT images of the maxillofacial region were performed and reformatted in the coronal plane without the use of contrast. A dose lowering technique was utilized adhering to the principles of ALARA. COMPARISON: None. FINDINGS: The visualized cervical spine, skull base, pterygoid plates, nasal bones, lamina papyracea, orbital floors, mandible, and zygomatic arches are intact. No fractures. The orbits are unremarkable. Mild left periorbital soft tissue swelling. Mild to moderate mucosal thickening within the right maxillary sinus. Degenerative changes at the temporomandibular joints. IMPRESSION: No fractures within the maxillofacial region. Mild left periorbital soft tissue swelling. ACT 112: Negative or not required by law. Electronically signed by: Reagan Amaral M.D. 11/04/2020 7:[address] 11/03/20 19:[address] DOSE: HISTORY: falls TECHNIQUE: Multiaxial CT images of the head were performed without the use of intravenous contrast. Automated exposure control was utilized for this study. A dose lowering technique was utilized adhering to the principles of ALARA. Comparison: None. Findings: Mild mucosal thickening and a trace fluid level within the right maxillary sinus. The mastoid air cells are clear. Mild left periorbital soft tissue swelling. The calvarium and skull base are intact. The ventricles and sulci are within normal limits. There is no mass, hematoma, midline shift, or acute infarct. Impression: No acute intracranial abnormality. Left periorbital soft tissue swelling. ACT 112: Negative or not required by law. Electronically signed by: Reagan Amaral M.D. 11/04/2020 7:[address] 11/04/20 07:33 CT OF THE CHEST WITH IV CONTRAST CLINICAL HISTORY: hilar fullness COMPARISON STUDY: No previous studies for comparison. TECHNIQUE: Following the IV administration of 94 mL of Optiray, CT of the thorax was performed from the thoracic inlet to the lung bases. Images are reviewed in the axial, sagittal, and coronal planes. IV contrast was administered without complication. A dose lowering technique was utilized adhering to the principles of ALARA. CT DOSE: 216.54 mGy.cm FINDINGS: Thyroid: Visualized portion of thyroid gland shows no evidence of focal lesions. There is no axillary, supra clavicle or internal mammary lymphadenopathy seen. No mediastinal or hilar lymphadenopathy seen. Thoracic aorta: The thoracic aorta is normal in course and caliber, noting standard 3-vessel arch anatomy. No aneurysm or dissection is seen. Pulmonary vasculature: Is normal in caliber. HEART: Is normal in size without pericardial effusion. Heavy calcifications of coronary arteries and possible stents are seen. Lungs and pleural spaces: Tracheobronchial tree is patent. Small amount of secretion is seen at dependent portion of the intrathoracic trachea extending to the right mainstem bronchus. Mild atelectasis is seen at dependent portions of bilateral lower lobes. No pleural effusion is seen. Evaluation of lung parenchyma is limited due to motion artifact. Multiple calcified granulomas are seen throughout bilateral lungs. 3 mm micronodule is seen within left upper lobe (4/172) Upper abdomen: Partially visualized upper abdominal viscera is within normal limits. Skeletal structures: Slightly displaced acute fracture deformity of the lateral aspect of the right 10th rib is seen. Mild multilevel degenerative changes of the spine. Patient is cachetic. IMPRESSION: 1. Mediastinal vascular structures appear normal. No mediastinal lymphadenopathy seen. 2. Slightly displaced fracture at the right 10th rib. 3. Minimal atelectasis at bilateral bases. No infiltrates or consolidative lesions. Limited exam due to motion artifact. 4. Multiple calcified pulmonary nodule/granulomas. Noncalcified pulmonary micronodule within left upper lobe. Please note that in presence of high risk factors for pulmonary malignancy, follow-up evaluation for pulmonary nodules measuring less than 6 mm in size in 12 months is optional per Fleischner Society guidelines. 5. Cachexia Please refer to below summary of Fleischner criteria recommendations for follow- up of incidental CT nodules (Kacey Anderson, Guidelines for management of small pulmonary nodules detected on CT scans: A statement from the Fleischner Society, Radiology 237: [id number].) SOLID NODULES Solitary nodule size: <6 mm * low risk patients: no follow-up needed * high risk patients: optional CT at 12 months Solitary nodule size: 6-8 mm * low risk patients: follow-up at 6-12 months, then consider further follow-up at 18-24 months * high risk patients: initial follow-up CT at 6-12 months and then at 18-24 months if no change Solitary nodule size: >8 mm * either low or high risk patients - consider follow-up CT at 3 months, and/or CT-PET, and/or biopsy Multiple nodules size: <6 mm * low risk patients: no routine follow-up * high risk patients: optional CT at 12 months Multiple nodules size: 6-8 mm * low risk patients: follow-up at 3-6 months, then consider further follow-up at 18-24 months * high risk patients: follow-up at 3-6 months, then at 18-24 months if no change Multiple nodules size: >8 mm * low risk patients: follow-up at 3-6 months, then consider further follow-up at 18-24 months * high risk patients: follow-up at 3-6 months, then at 18-24 months if no change Note: newly detected indeterminate nodule in persons 35 years of age or older. * low risk patients: minimal or absent history of smoking and/or other known risk factors * high risk patients: history of smoking or of other known risk factors (e.g. first degree relative with lung cancer, or exposure to asbestos, radon, uranium) * if a nodule up to 8 mm is partly solid or is ground glass further follow-up is required after 24 months to exclude possible slow growing adenocarcinoma (KATE) SUBSOLID NODULES Solitary pure ground-glass nodule * nodule size <6 mm - no CT follow-up required * nodule size >=6 mm - follow-up CT at 6-12 months, then every 2 years until 5 years Solitary part-solid nodule * nodule size <6 mm - no CT follow-up required * nodule size >=6 mm - follow-up CT at 3-6 months. If unchanged, and solid component remains <6 mm, then annual follow-up for 5 years Multiple subsolid nodules * nodule size <6 mm - follow-up CT at 3-6 months, consider further follow-up at 2 and 4 years if stable * nodule size >=6 mm - follow-up CT at 3-6 months, subsequent management based on the most suspicious nodule(s) ACT 112: Positive. There are findings on this exam that require communication between the performing entity and the patient following Patient Test Result Information Act ([place] Act 112) guidelines. The above report was generated using voice recognition software. It may contain grammatical, syntax or spelling errors. Electronically signed by: Keren Dixon DO 11/04/2020 10:27 AM Abdomen/Pelvis CT 11/04/20 16:33 CT SCAN OF THE ABDOMEN AND PELVIS WITH IV CONTRAST CLINICAL HISTORY: Elevated hepatic transaminases. COMPARISON STUDY: No priors. TECHNIQUE: Following the IV administration of 94 cc of Optiray 320, CT scan of the abdomen and pelvis is performed from the lung bases to the proximal femora. Images are reviewed in the axial, sagittal, and coronal planes. IV contrast was administered without complication. Examination is suboptimal without oral contrast. A dose lowering technique was utilized adhering to the principles of ALARA. The examination is degraded by motion artifact, and by streak artifact from the arms which could not be elevated above the abdomen. CT DOSE: 437.56 mGy.cm FINDINGS: Lung bases: The heart is normal in size and without pericardial effusion. The coronary arteries are densely calcified. Evaluation of the lung parenchyma is degraded by motion artifact. Edematous change is noted. There are scattered calcified granulomas. There are trace pleural effusions with dependent at electasis. Liver: The contrast-enhanced liver is normal in size and contour. Attenuation is heterogeneous. There is no intrahepatic biliary ductal dilatation. The hepatic veins and portal veins are patent. Gallbladder: Unremarkable. Spleen: Normal in size and attenuation. Pancreas: Grossly unremarkable. Adrenal glands: Unremarkable. Kidneys: The contrast enhanced kidneys are normal in size and without hydronephrosis. The kidneys enhance symmetrically. Excreted IV contrast is present within the renal collecting system and ureters. Abdominal vasculature: The abdominal aorta is normal in course and caliber noting advanced atherosclerotic calcification. Bowel: There is no bowel obstruction. The bowel loops cannot be evaluated due to significant motion artifact. Question wall thickening and edema of the right colon and rectosigmoid. The appendix is nonvisualized. Peritoneum: There is no intraperitoneal free air or abdominal ascites. There is mesenteric edema. Lymphadenopathy: None. Pelvic viscera: The bladder is decompressed around a Holder catheter and not well evaluated. Gas and excrete contrast are present within the bladder lumen. Skeletal structures: No lytic or blastic lesions are seen. There acute right lateral 9th and 10th rib fractures. There is moderate lumbosacral spondylosis. Soft tissues: The patient is cachectic. There is diffuse body wall edema. IMPRESSION: 1. Severely streak and motion compromised examination. The examination is also degraded by lack of enteric contrast, patient cachexia, and diffuse edema. This degrades diagnostic utility. 2. Trace pleural effusions. 3. Heterogeneous liver. 4. There is no bowel obstruction. 5. Question wall thickening of the right colon and rectosigmoid. This is not well regional administrative assistant clinical correlation will be required. 6. Acute right-sided rib fractures. 7. Additional findings as above. ACT 112: Negative or not required by law. Electronically signed by: Maldonado Moreno M.D. 11/04/2020 9:41 PM Medications Administered Current Inpatient Medications Heparin Sodium/Dextrose (Heparin Sodium/Dextrose) 25,000 units in 500 mls @ 22 mls/hr IV .[id number] [facility]; Protocol Stop: 12/04/20 16:44 Last Titration: 11/06/20 07:00 Dose: 1,100 units/hr, 22 mls/hr Documented by: Amiodarone HCl/Dextrose (Nexterone / D5w) 360 mg in 200 mls @ 16.667 mls/hr IV .Q12H [facility] Stop: 12/06/20 00:29 Last Admin: 11/06/20 13:35 Dose: 0.5 mg/min, 16.7 mls/hr Documented by: Lidocaine (Lidocaine 5% 1 Patch) 1 patch TD [facility] Stop: 12/05/20 08:59 Last Admin: 11/06/20 09:47 Dose: Not Given Documented by: Metoprolol Succinate (Metoprolol Succ 25mg Ext Rel Tab) 25 mg PO [facility] Stop: 12/06/20 08:59 Last Admin: 11/06/20 09:00 Dose: 25 mg Documented by: Miscellaneous (Remove Lidoderm Patch) 1 ea N/A DAILY@2100 [facility] Stop: 12/04/20 20:59 Last Admin: 11/05/20 21:00 Dose: 1 ea Documented by: Multivitamins/Minerals (Cerovite Adv Formula Tab) 1 tab PO [facility] Stop: 12/06/20 08:59 Last Admin: 11/06/20 09:00 Dose: 1 tab Documented by: Potassium Chloride (Potassium Chloride Pwd 20 Meq Pack) 40 meq PO BID [facility] Stop: 12/05/20 20:59 Last Admin: 11/06/20 09:00 Dose: 40 meq Documented by: Potassium Phosphate (Pot Phosphate Monobasic W/ Sod Tab) 1 tab PO QID [facility] Stop: 12/05/20 08:59 Last Admin: 11/06/20 13:05 Dose: 1 tab Documented by: Thiamine HCl (Thiamine Hcl 100 Mg Tab) 100 mg PO QAM [facility] Stop: 12/06/20 08:59 Last Admin: 11/06/20 09:00 Dose: 100 mg Documented by:
[2020-11-06] MEDS: POTASSIUM CHLORIDE PWD 20 MEQ PACK PO SCH ×2 (09:00→21:05)
[2020-11-06] MEDS: THIAMINE HCL 100 MG TAB PO SCH (09:00)
[2020-11-06] MEDS: CEROVITE ADV FORMULA TAB PO SCH (09:00)
[2020-11-06] MEDS: POT PHOSPHATE MONOBASIC W/ SOD TAB PO SCH ×4 (09:00→21:05)
[2020-11-06] MEDS: METOPROLOL SUCC 25MG EXT REL TAB PO SCH (09:00)
[2020-11-06] MEDS: LIDOCAINE 5% 1 PATCH TD SCH (09:47)
[2020-11-06 11:29] LABS: Partial Thromboplastin Ratio 2.4
[2020-11-06 11:38] LABS: Partial Thromboplastin Time 64.4 Seconds (21.0-31.0)
[2020-11-06] MEDS ORDERED: SODIUM CHLORIDE 1 GM TABLET PO STA (11:57)
--- NOTE | 2020-11-06 12:08 | Nephrology Progress Note ---
Date of Service November 06, 2020 Assessment & Plan (1) Hyponatremia: Plan: * Hypoosmolar hyponatremia. Normal thyroid and renal function. Clinically euvolemic. Low urine osmolality suggestive of polydipsia/potomania * Target 6 - 8 mmol/L correction of serum sodium over 24 hours * Rate of correction appear appropriate * Uosm > 300 this morning * Will transition to 2g NaCl po and 20 mg Lasix IV x 1 this am. Monitor PRP * Chest CT 11/04/20: Multiple calcified granulomas < 6 mm (follow up optional) (2) Hypokalemia: Plan: * Both K and PO4 have been corrected this am (3) Acute urinary retention: Plan: * Bladder scan w/ 1900 cc urine at time of admission * Holder in place. UO 900 cc overnight (4) Rhabdomyolysis: Plan: * CPK improved from 5,040 at time of admission to 814 this am Admission and Anticipated Discharge Date Admission Date: November 03, 2020 Subjective Mr. Chase was evaluated in his hospital room this morning. He remains weak but is alert and oriented to self/place and month. He did not eat breakfast this morning. Holder catheter remains in place. Patient had 900 cc UO last 24 hours Review of Systems Constitutional: + weakness; no fever Eyes: no problem reported Ear, Nose, Mouth, Throat: no problem reported Respiratory: no cough and no dyspnea Cardiovascular: no chest pain, no palpitations and no edema Gastrointestinal: no abdominal pain, no nausea, no vomiting and no diarrhea/loose stools Genitourinary: + urinary hesitancy Musculoskeletal: no back pain Integumentary: no rash Neurologic: + falls Physical Exam Constitutional: + cachectic; not in distress Eyes: PERRL, conjunctivae normal, anicteric sclerae ENMT: Mouth: + dry oral mucous membranes Neck: trachea midline, no thyromegaly Respiratory: normal respiratory effort, lungs clear to auscultation Cardiovascular: RRR, no murmur, no edema Gastrointestinal (Abdomen): normal bowel sounds, soft, nontender, no hepatosplenomegaly Musculoskeletal: Extremities: no cyanosis Skin: Trauma: + periorbital ecchymosis (L eye) Neurologic: awake (oriented to self and place only) Results & Data ([facility]) Vital Signs (Past 12 Hours) Vital Signs Temp Pulse Pulse Resp BP Pulse Ox 11/06/20 11:53 36.6 C 71 18 116/70 96 11/06/20 08:00 36.8 C 78 71 18 117/72 100 11/06/20 03:10 36.6 C 73 16 110/67 97 Laboratory Results Laboratory Tests 11/06/20 06:56 Sodium 125 L Potassium 3.5 Chloride 91 L Carbon Dioxide 29 BUN 7 Creatinine 0.37 L Glucose 101 H Calcium 7.4 L Phosphorus 2.7 Magnesium 2.2 PG Care Time/CCT Total # of Minutes Spent Total Time Spent with Patient: Total time spent is greater than 50% in coordination of care (as documented) at patient's floor/unit and/or counseling patient: Coding Level of Care Code 62379 Subseq Hosp Care Lvl 3 Diagnoses Hyponatremia E87.1 Hypokalemia E87.6 Acute urinary retention R33.8 Rhabdomyolysis M62.82
[2020-11-06] MEDS ORDERED: FUROSEMIDE 20 MG in SYRINGE 0 ML IV ONE (12:15)
[2020-11-06 15:06] LABS: Calcium 7.6 mg/dl (8.5-10.1); Creatinine Clr Calc Pharmacy 139.1 ml/min; Est GFR (African American) 138.2 ml/min; Est GFR (Non-African American) 119.2 ml/min; Potassium 3.6 mmol/L (3.5-5.1)
[2020-11-06] MEDS: HEPARIN SODIUM/DEXTROSE 25,000 UNITS/500 ML BAG IV SCH (18:53)
[2020-11-07] MEDS: AMIODARONE / D5W 360 MG/200 ML BAG IV SCH ×2 (01:35→12:30)
[2020-11-07 07:12] LABS: Partial Thromboplastin Ratio 2.9
[2020-11-07 07:24] LABS: BUN Creatinine Ratio 26.1 (10-20); Calcium 7.5 mg/dl (8.5-10.1); Creatinine Clr Calc Pharmacy 152.9 ml/min; Est GFR (African American) 145.3 ml/min; Est GFR (Non-African American) 125.4 ml/min; Potassium 3.5 mmol/L (3.5-5.1)
[2020-11-07 07:30] LABS: Phosphorus 3.3 mg/dl (2.5-4.9)
[2020-11-07 07:33] LABS: Partial Thromboplastin Time 75.7 Seconds (21.0-31.0)
[2020-11-07] MEDS: METOPROLOL SUCC 25MG EXT REL TAB PO SCH (08:14)
[2020-11-07] MEDS: CEROVITE ADV FORMULA TAB PO SCH (08:14)
[2020-11-07] MEDS: POTASSIUM CHLORIDE PWD 20 MEQ PACK PO SCH ×2 (08:14→20:44)
[2020-11-07] MEDS: POT PHOSPHATE MONOBASIC W/ SOD TAB PO SCH ×4 (08:14→20:44)
[2020-11-07] MEDS: THIAMINE HCL 100 MG TAB PO SCH (08:14)
[2020-11-07] MEDS: LIDOCAINE 5% 1 PATCH TD SCH (08:16)
[2020-11-07] MEDS: HEPARIN SODIUM/DEXTROSE 25,000 UNITS/500 ML BAG IV SCH ×2 (12:26→12:27)
--- NOTE | 2020-11-07 12:37 | Nephrology Progress Note ---
Date of Service November 07, 2020 Assessment & Plan (1) Hyponatremia: (2) Altered mental status: (3) Hypokalemia: (4) Rhabdomyolysis: (5) Atrial fibrillation: Plan: 55 y o m The was brought to ER after his family found him weak, confused and had fall in with a large area of ecchymosis around his eyes. According to the report, 2 weeks prior to admission he felt poorly and attempted to "detoxify" his body by fasting and drinking water. on admission he was found to be acutely hyponatremic with serum sodium 114, urine osmolality 139. Bladder scan revealed 1900 cc. Holder catheter was placed and patient had brisk diuresis of ~ 2L. 500 cc 0.9NS was initially administered. 100 cc 3% NaCl was then given and Mr. Chase was admitted to the ICU. serum sodium and other electrolyte improvement with 3 person and electrolyte replacement. Sodium this morning 126. He was also found to have new onset AFib with RVR, currently on heparin drip and amiodarone. -- continue to monitor sodium and other electrolyte and avoid any further 3% or D5 W. let sodium rise slowly. monitor serum sodium every 12 hours. Admission and Anticipated Discharge Date Admission Date: November 03, 2020 Adrian Hilton was awake and alert this morning however seems weak and lethargic. Denied any specific symptoms. Blood pressure has been acceptable. Serum sodium improved to 126. Review of Systems Review of Systems: detailed review of system was otherwise unremarkable. Physical Exam Constitutional: + ill appearing and + thin; no acute distress Respiratory: normal respiratory effort, lungs clear to auscultation Cardiovascular: RRR, no murmur, no edema Neurologic: moves all extremities and awake; not confused Psychiatric: A+Ox3, euthymic affect Results & Data ([facility]) Vital Signs (Past 12 Hours) Vital Signs Temp Pulse Pulse Resp BP Pulse Ox 11/07/20 11:54 36.9 C 80 17 111/68 96 11/07/20 08:00 70 11/07/20 07:33 36.8 C 71 17 102/65 97 11/07/20 03:12 36.9 C 76 20 111/72 97 PG Care Time/CCT Total # of Minutes Spent Total Time Spent with Patient: Total time spent is greater than 50% in coordination of care (as documented) at patient's floor/unit and/or counseling patient: Coding Level of Care Code 53342 Subseq Hosp Care Lvl 3 Diagnoses Hyponatremia E87.1 Altered mental status R41.82 Altered mental status type: unspecified Hypokalemia E87.6 Rhabdomyolysis M62.82 Atrial fibrillation I48.91 (1) Altered mental status Altered mental status type: unspecified Qualified Code(s): R41.82 - Altered mental status, unspecified
[2020-11-07 13:45] LABS: Partial Thromboplastin Ratio 1.5; Partial Thromboplastin Time 40.7 Seconds (21.0-31.0)
[2020-11-07] MEDS: APIXABAN 5 MG TABLET PO SCH ×2 (13:56→20:44)
[2020-11-07 14:06] LABS: Albumin Level 2.4 gm/dl (3.4-5.0); Bilirubin Direct 0.2 mg/dl (0-0.2); Bilirubin,Total 0.5 mg/dl (0.2-1); Total Protein 5.5 gm/dl (6.4-8.2)
--- NOTE | 2020-11-07 15:34 | Hospitalist Progress Note ---
Date of Service November 07, 2020 Assessment & Plan (1) Hyponatremia: Plan: Mr. Chase is a 55 y/o male with an unknown PMHx admitted to the ICU on 11/03 for altered mental status, a fall, and symptomatic hyponatremia. 1. Altered Mental Status 2/2 Hypoosmolar Hyponatremia -Mentation continuing to improve -Na at admission: 114 --> 126 current -Received series of NSS boluses and received 3% hypertonic saline in the ICU --> PCU -Following Nephro; target 6 - 8 mmol/L correction of serum sodium over 24 hours --> monitoring levels for slow progression q12 and avoid any further 3% or D5 W; fluid restricted -remove walden at d/c 2. Cachexia/Protein Calorie Malnutrition -Albumin: 2.8 --> 2.4 -Edematous abdomen secondary to hypoalbuminemia -Nutritional consult appreciated: recommended multivitamin and thiamine due to refeeding syndrome risk; Consulted again today for dietary habits (inappropriate fasting) -Replete electrolytes, being weary of possibility of refeeding syndrome 3. AFib -Occurred while in ICU -Highest HR: 110s, BP: 100s/60s -Continue metoprolol succinate 25 mg daily -Converted from AFib 120s to sinus 70s/80s after amiodarone drip, has been sinus since --> consulted cardiology for advice on switching amiodarone to something else that may control his rate. BP was previously too low to add more metoprolol and I worry about discharging patient on amiodarone due to compliance. Consider switching medication versus attempting additional metoprolol since patient is improving overall and may be able to handle med. New EKG showed no QT prolongation. -Echocardiogram unremarkable: EF 55-60%, mild/moderate mitral annular calcification -Switched heparin drip to Eliquis 5mg PO BID -Continue to monitor on tele 4. Elevated LFTs, resolving -AST: 150 on 11/05 (down from 223 on 11/04 --> 271 on 11/03), ALT: 145 (down from 170 on 11/04 --> 174 on 11/03) -- likely hepatocellular etiologies include viral or toxin -LDH: 704 on 11/04 -CT A/P not concerning for neoplasm -LFTs rechecked today; trending down 5. Delusions -See subjective for examples -Psych consult: unable to have meaningful interview with patient due to mentation --> followed up again today, still not mentated enough for evaluation psych will continue to follow -Around 5pm, patient became agitated/delusional throwing objects around the room, zyprexa 5mg given qh8 PRN, will see how patient does. -walden order ordered as needed 6. Normocytic Anemia -Hgb: 11.6, MCV: 83.8 -Peripheral smear: "There are no significant spherocytes or schistocytes to suggest a hemolytic anemia. If clinical concern is high, then additional testing to include haptoglobin and a LAMAR are recommended. Potential etiologies of a normocytic anemia include anemia of chronic disease, renal disease, hemorrhage, and nutritional deficiencies." 7. Rib Fracture -Likely secondary from fall -Lidocaine patch to manage pain as needed 8. Rhabdomyolysis, Resolving -CK: 814 (down from 2539 on 11/05 --> 5040 on 11/04) -Likely secondary to fall -CK rechecked today 617 9. Hypokalemia, Resolving -K: 3.5 -Continue repletion 10. Pulmonary Nodule -Incidental findings on CXR -CT Chest: "Multiple calcified pulmonary nodule/granulomas. Noncalcified pulmonary micronodule within left upper lobe. Please note that in presence of high risk factors for pulmonary malignancy, follow-up evaluation for pulmonary nodules measuring less than 6 mm in size in 12 months is optional per Fleischner Society guidelines." 11. Hypoxia, Resolved -Currently 98% on RA DVT PPx: Eliquis FEN/GI: Minced and moist; fluid restriction Code: Full Dispo: PCU Admission and Anticipated Discharge Date Admission Date: November 03, 2020 Supervising Physician Co-Signing Physician Notes Attending attestation Pt seen and examined in concert with Dr. Newman. In agreement with the documented findings as noted in the resident documentation with any exceptions or additions as noted here. Upright in bed with significantly improved mentation - now conversant with evidently labile mood (spontaneous crying because I was "being kind") and perseverating speech with tangential content. On examination, S1/S2 nl RRR no MCG. CTAB. Abd NT/ND BS+ve Altered mental status - metabolic encephalopathy with hypoosmolar hyponatremia v. underlying psychiatric issue - trend BMP. Continue fluid restriction. Psychiatry consultation appreciated. Close monitoring. Antipsychotic as noted for agitation. Atrial fibrillation - cardiology consult for support in transitioning amiodarone - transition to eliquis from heparin drip. Continue metoprolol. Telemetry monitoring. Recent h/o urinary retention - walden in place. Will need trial of void prior to discharge. Cachexia, protein-calorie malnutrition - trend BMP. Nutritional support Transaminitis - downtrending Rhabdomyolysis - downtrending Else see resident documentation as noted. Subjective Patient doing better than yesterday. Looks healthier and speaks more words though still quiet. Oriented to place and knows why he is in the hospital. Denies chest pain, SOB, fever. In the afternoon, patient became agitated and pulled out his IV/walden. Review of Systems Review of Systems: All systems reviewed & are unremarkable except as noted in HPI & below Physical Exam Physical Exam: GENERAL - disheveled, mild distress, improved from yesterday, agitated in afternoon SKIN - Ecchymosis noted to the LEFT periorbital area. Jaundiced. HEAD - NC/AT. Anicteric sclerae. LUNGS - Lungs clear to auscultation bilaterally. No rales, wheezes, rhonchi, or stridor. Chest wall symmetric without accessory muscle use, intercostals retractions, or central cyanosis. CARDIAC - Regular rate and rhythm. No murmur, rubs, or gallops appreciated. ABDOMEN - Edematous abdomen. Normoactive bowel sounds. EXTREMITIES - No clubbing or peripheral cyanosis. No pretibial edema present. PSYCH -somnolent. Awakens and provides name and location. Provides yes/no ans wers as well as brief explanations. Results & Data Results & Data ([facility]) Vital Signs (Past 12 Hours) Vital Signs Temp Pulse Pulse Resp BP Pulse Ox 11/07/20 11:54 36.9 C 80 17 111/68 96 11/07/20 08:00 70 11/07/20 07:33 36.8 C 71 17 102/65 97 Resident Activity Tracking Resident Involvement: Resident Care Provided Care Provided: Adult Hospital Medicine
[2020-11-07 15:44] LABS: Calcium 7.4 mg/dl (8.5-10.1); Creatinine Clr Calc Pharmacy 125.6 ml/min; Est GFR (Non-African American) 115.6 ml/min; Potassium 4.1 mmol/L (3.5-5.1)
--- NOTE | 2020-11-07 16:02 | Communication Note ---
Date of Service: November 07, 2020 Attempted again to see patient this afternoon. Patient was more alert than previously, but continues to slur his speech and be very slow to respond. He was able to deny any suicidal thoughts. He denied any history of psychiatric illness. He denied any current psychosis. Liaison team attempting to gain collateral. Thus far it seems that patient does not have a known history of significant psychiatric illness and it appears that the timing of his symptoms correspond to the metabolic delirium. Attempts were made to understand why patient would have fasted significantly in the first place, to which she responds that he was doing it for health reasons as he had felt unhealthy and wanted to clean out his system. Although unusual, this statement and of itself does not represent a delusional process, and might have just been a misunderstanding of the risks of fasting by the patient. Psychiatry service will continue to attempt to elicit further information from both the patient and collateral sources. In the meantime, no medication changes as patient appears to be making slow but incremental progress in his mental state and has not had any episodes of agitation or aggression.
[2020-11-07] MEDS ORDERED: OLANZapine 10 MG/2.1 ML SDV IM PRN (17:41)
[2020-11-07] MEDS ORDERED: OLANZapine 10 MG/2.1 ML SDV IM ONE (17:43)
[2020-11-07] MEDS ORDERED: OLANZapine ZYDIS 5 MG ORALLY DIS. TAB PO STA (21:33)
[2020-11-07] MEDS ORDERED: OLANZapine 10 MG/2.1 ML SDV IM SCH (22:00)
[2020-11-08] MEDS: AMIODARONE / D5W 360 MG/200 ML BAG IV SCH ×2 (01:19→12:30)
[2020-11-08 06:46] LABS: Hematocrit (blood only) 30.6 % (42-52); Hemoglobin 10.8 g/dL (14.0-18.0); Mean Corpuscular Hemoglobin 31.2 pg (25-34); Mean Corpuscular Hgb Conc 35.3 g/dL (32-36); Mean Corpuscular Volume 88.4 fL (80-100); Platelet Count 134 K/uL (130-400); RDW Coefficient of Variation 13.7 % (11.5-14.5); RDW Standard Deviation 44.6 fL (36.4-46.3); Red Blood Count 3.46 M/uL (4.7-6.1); White Blood Count 5.62 K/uL (4.8-10.8)
[2020-11-08 07:06] LABS: Basophils # (auto) 0.05 K/uL (0-0.2); Basophils % (auto) 0.9 %; Dohle Bodies 1+; Eosinophils # (auto) 0.02 K/uL (0-0.5); Eosinophils % (auto) 0.4 %; Immature Granulocytes # (auto) 0.03 K/uL (0.00-0.02); Immature Granulocytes % (auto) 0.5 %; Lymphocytes # (auto) 2.21 K/uL (1.2-3.4); Lymphocytes % (auto) 39.3 %; Monocytes # (auto) 0.48 K/uL (0.11-0.59); Monocytes % (auto) 8.5 %; Neutrophils # (auto) 2.83 K/uL (1.4-6.5); Neutrophils % (auto) 50.4 %
[2020-11-08 07:21] LABS: Calcium 7.9 mg/dl (8.5-10.1); Creatinine Clr Calc Pharmacy 153.9 ml/min; Est GFR (African American) 145.3 ml/min; Est GFR (Non-African American) 125.4 ml/min; Phosphorus 3.2 mg/dl (2.5-4.9); Potassium 3.7 mmol/L (3.5-5.1)
[2020-11-08] MEDS: CEROVITE ADV FORMULA TAB PO SCH (09:10)
[2020-11-08] MEDS: APIXABAN 5 MG TABLET PO SCH ×2 (09:10→20:14)
[2020-11-08] MEDS: METOPROLOL SUCC 25MG EXT REL TAB PO SCH (09:10)
[2020-11-08] MEDS: THIAMINE HCL 100 MG TAB PO SCH (09:10)
[2020-11-08] MEDS: POTASSIUM CHLORIDE PWD 20 MEQ PACK PO SCH ×2 (09:10→20:14)
[2020-11-08] MEDS: POT PHOSPHATE MONOBASIC W/ SOD TAB PO SCH ×4 (09:10→20:14)
[2020-11-08] MEDS: LIDOCAINE 5% 1 PATCH TD SCH (09:11)
--- NOTE | 2020-11-08 09:36 | Electrocardiogram Report ---
Test Reason : Blood Pressure : / mmHG Vent. Rate : 085 BPM Atrial Rate : 085 BPM P-R Int : 138 ms QRS Dur : 080 ms QT Int : 382 ms P-R-T Axes : 049 016 018 degrees QTc Int : 454 ms Poor data quality, interpretation may be adversely affected Normal sinus rhythm Abnormal ECG When compared with ECG of 04-NOV-2020 13:48, Sinus rhythm has replaced Atrial fibrillation HR has decreased by 31 bpm Confirmed by Rg Blanc ([id number]) on 11/08/2020 9:36:15 AM Referred By: REFERRED SELF Confirmed By:Rg Blanc
--- NOTE | 2020-11-08 11:19 | Cardiology Consultation ---
Date of Consultation November 08, 2020 Assessment & Plan (1) PAF (paroxysmal atrial fibrillation): -question if this arrhythmia was secondary to his electrolyte disturbances and rhabdomyolysis. -the patient has converted to sinus rhythm on intravenous amiodarone. -could transition to amiodarone 200 mg b.i.d. while hospitalized. -would continue to follow liver transaminases. -not sure if we should use amiodarone long-term. -agree with Eliquis 5 mg b.i.d. -doubt he will be compliant with long-term anticoagulation. -difficult case. History of Present Illness Attending Physician: Tay Sorensen MD History of Present Illness Mr. Chase is a 55-year-old male admitted on November 03 with mental status changes, hyponatremia, and facial trauma after sustaining a fall. The patient developed atrial fibrillation while in the intensive care unit. This consultation was ordered to assistance cardiac management. The patient is a very poor historian. History is obtained from chart review. Apparently the patient was on a 2 week fast to detoxify his body. He was brought to the emergency room by his family as he was lethargic and only arouses to painful stimuli. Sodium level is noted to be 116 on presentation. On November 04, the patient developed atrial fibrillation with a rapid ventricular response. He was placed on intravenous amiodarone and converted to sinus rhythm soon thereafter. He has remained on intravenous amiodarone since that time. He was also placed on intravenous heparin but then converted to Eliquis 5 mg b.i.d.. The patient is currently resting in bed and without complaints. He says I am doing okay. Past medical and surgical history Unknown Social history Lives with his No tobacco alcohol Family history Unobtainable Review of systems Unobtainable Allergies Allergy/AdvReac Type Severity Reaction Status Date / Time Unable to Assess Allergy Unverified 11/03/20 20:04 Home Medications Medication Instructions Recorded Confirmed Type No Known Home Medications 11/03/20 11/03/20 History Patient History Medical History No pertinent past medical history Surgical History No pertinent past surgical history Social History Smoking Status: Never smoker Second Hand Exposure: No; Do You Dip or Chew Tobacco: No; Hx Alcohol Use: No Hx Substance Use: No Communication Ability: Impaired Engine Mechanic Required: No Beliefs That Will Affect Care: Oriental Orthodox and Cultural marital status: Single Current Living Situation: Spouse and Family Feels Safe at Home: Yes Safety Concerns: Feels Safe At This Time Assistive Devices: None Physical Exam 2 Physical Exam: In general this is a thin white male in no acute distress. HEENT exam notes an ecchymosis around the left orbit. Neck is supple with full carotid upstrokes. There are no carotid bruits. Jugular venous pressure is flat at 90. No thyromegaly. Cardiovascular exam reveals a regular rhythm with distant heart sounds. No obvious murmurs. Lungs are clear without rales, rhonchi, or wheezes. Abdomen is soft and nontender without bruits. Extremities reveal intact radial artery pulses bilaterally. There is no peripheral edema. Results & Data ([facility]) Vital Signs (Past 12 Hours) Vital Signs Temp Pulse Pulse Resp BP Pulse Ox 11/08/20 08:00 36.8 C 86 18 131/66 95 11/08/20 03:03 36.7 C 85 19 123/81 97 11/08/20 00:00 100 H 11/07/20 23:08 37.6 C H 97 H 20 125/80 99 Laboratory Results CBC notes hemoglobin of 10.8, hematocrit 30.6, white count 5.6, platelet [id number]. Electrolytes note a sodium of 130, potassium 3.7, chloride 96, bicarb 27, BUN 10, creatinine 0.46, and glucose of 97. Magnesium is normal at 2.0. Troponin I levels undetectable at less than 0.015. Initial CK was 5040 and is now down to 617. Diagnostic Findings Echocardiogram notes normal left ventricular systolic function without wall motion abnormalities. Left ventricular ejection fraction is estimated 55-60%. No valvular pathology. Current EKG notes normal sinus rhythm without abnormalities. Chest x-ray notes a prominent right hilum. Chest CT scan notes pulmonary nodules. PG Care Time/CCT Total # of Minutes Spent Total Time Spent with Patient: Total time spent is greater than 50% in coordination of care (as documented) at patient's floor/unit and/or counseling patient: Coding Level of Care Code 86273 Inpt Consult Level 4 Diagnoses PAF (paroxysmal atrial fibrillation) I48.0
--- NOTE | 2020-11-08 12:02 | Nephrology Progress Note ---
Date of Service November 08, 2020 Assessment & Plan (1) Hyponatremia: (2) Altered mental status: (3) Hypokalemia: (4) Rhabdomyolysis: (5) Atrial fibrillation: Plan: 55 y o m The was brought to ER after his family found him weak, confused and had fall in with a large area of ecchymosis around his eyes. According to the report, 2 weeks prior to admission he felt poorly and attempted to "detoxify" his body by fasting and drinking water. on admission he was found to be acutely hyponatremic with serum sodium 114, urine osmolality 139. Bladder scan revealed 1900 cc. Holder catheter was placed and patient had brisk diuresis of ~ 2L. 500 cc 0.9NS was initially administered. 100 cc 3% NaCl was then given and Mr. Chase was admitted to the ICU. serum sodium and other electrolyte improvement with 3 person and electrolyte replacement. Sodium this morning 126. He was also found to have new onset AFib with RVR, currently on heparin drip and amiodarone. Sodium improved to 130, other electrolyte acceptable. -- Expect sodium to continue to improve, advised to increase protein intake, continue to monitor sodium and other electrolyte and avoid any further 3% or D5 W. let sodium rise slowly. Will sign off. please contact if further assistance needed. Appreciate the consult. Admission and Anticipated Discharge Date Admission Date: November 03, 2020 Adrian Hilton was awake and alert this morning however he was barely talking or answering q, seems weak and lethargic. Denied any specific symptoms. Blood pressure has been acceptable. Serum sodium improved to 130. Review of Systems Review of Systems: detailed review of system was otherwise unremarkable. Physical Exam Constitutional: + ill appearing and + thin; no acute distress Respiratory: normal respiratory effort, lungs clear to auscultation Cardiovascular: RRR, no murmur, no edema Neurologic: moves all extremities and awake; not confused Psychiatric: A+Ox3, euthymic affect Results & Data ([facility]) Vital Signs (Past 12 Hours) Vital Signs Temp Pulse Pulse Resp BP Pulse Ox 11/08/20 11:50 36.5 C 88 18 124/62 93 11/08/20 08:00 36.8 C 68 86 18 131/66 95 11/08/20 03:03 36.7 C 85 19 123/81 97 11/08/20 00:00 100 H PG Care Time/CCT Total # of Minutes Spent Total Time Spent with Patient: Total time spent is greater than 50% in coordination of care (as documented) at patient's floor/unit and/or counseling patient: Coding Level of Care Code 27850 Subseq Hosp Care Lvl 2 Diagnoses Hyponatremia E87.1 Altered mental status R41.82 Altered mental status type: unspecified Hypokalemia E87.6 Rhabdomyolysis M62.82 Atrial fibrillation I48.91 (1) Altered mental status Altered mental status type: unspecified Qualified Code(s): R41.82 - Altered mental status, unspecified
--- NOTE | 2020-11-08 13:21 | Hospitalist Progress Note ---
Date of Service November 08, 2020 Assessment & Plan (1) Hyponatremia: Plan: Mr. Chase is a 55 y/o male with an unknown PMHx admitted to the ICU on 11/03 for altered mental status, a fall, and symptomatic hyponatremia. 1. Altered Mental Status 2/2 Hypoosmolar Hyponatremia -Mentation continuing to improve -Na at admission: 114 --> 126 --> 130 current -Received series of NSS boluses and received 3% hypertonic saline in the ICU --> PCU -Nephro has signed off; target 6 - 8 mmol/L correction of serum sodium over 24 hours --> monitoring levels for slow progression, avoid any further 3% or D5 W, increase protein intake; fluid restricted -remove walden at d/c if still in 2. Cachexia/Protein Calorie Malnutrition -Albumin: 2.8 --> 2.4 -Edematous abdomen secondary to hypoalbuminemia -Nutritional consult appreciated: recommended multivitamin and thiamine due to refeeding syndrome risk; Consulted again for dietary habits (inappropriate fasting) -Replete electrolytes, being weary of possibility of refeeding syndrome 3. AFib -Occurred while in ICU -Highest HR: 110s, BP: 100s/60s -Continue metoprolol succinate 25 mg daily -Converted from AFib 120s to sinus 70s/80s after amiodarone drip, has been sinus since --> consulted cardiology for advice on switching amiodarone to something else that may control his rate. BP was previously too low to add more metoprolol and I worry about discharging patient on amiodarone due to compliance. Consider switching medication versus attempting additional metoprolol since patient is improving overall and may be able to handle med. New EKG showed no QT prolongation. -Echocardiogram unremarkable: EF 55-60%, mild/moderate mitral annular calcification -Switched heparin drip to Eliquis 5mg PO BID -Continue to monitor on tele 4. Elevated LFTs, resolving -AST: 150 on 11/05 (down from 223 on 11/04 --> 271 on 11/03), ALT: 145 (down from 170 on 11/04 --> 174 on 11/03) -- likely hepatocellular etiologies include viral or toxin -LDH: 704 on 11/04 -CT A/P not concerning for neoplasm -LFTs rechecked; trending down 5. Delusions -See subjective for examples -Psych consult: unable to have meaningful interview with patient due to mentation --> followed up again today, still not mentated enough for evaluation psych will continue to follow -Around 5pm yesterday, patient became agitated/delusional throwing objects around the room, zyprexa 5mg given qh8 PRN, became agitated again at night getting another dose of zyprexa sublingually, stable since 6. Normocytic Anemia -Hgb: 11.6, MCV: 83.8 -Peripheral smear: "There are no significant spherocytes or schistocytes to suggest a hemolytic anemia. If clinical concern is high, then additional testing to include haptoglobin and a LAMAR are recommended. Potential etiologies of a normocytic anemia include anemia of chronic disease, renal disease, hemorrhage, and nutritional deficiencies." 7. Rib Fracture -Likely secondary from fall -Lidocaine patch to manage pain as needed 8. Rhabdomyolysis, Resolving -CK: 814 (down from 2539 on 11/05 --> 5040 on 11/04) -Likely secondary to fall -CK rechecked 617 9. Hypokalemia, Resolved -K: 3.7 -Continuing repletion (goal of 4) 10. Pulmonary Nodule -Incidental findings on CXR -CT Chest: "Multiple calcified pulmonary nodule/granulomas. Noncalcified pulmonary micronodule within left upper lobe. Please note that in presence of high risk factors for pulmonary malignancy, follow-up evaluation for pulmonary nodules measuring less than 6 mm in size in 12 months is optional per Fleischner Society guidelines." 11. Hypoxia, Resolved -Currently 93% on RA 12. Diarrhea -Patient had foul smelling stools today, slightly runny -Ordered C. Diff testing DVT PPx: Eliquis FEN/GI: Minced and moist; fluid restriction Code: Full Dispo: PCU Admission and Anticipated Discharge Date Admission Date: November 03, 2020 Supervising Physician Co-Signing Physician Notes Attending attestation Pt seen and examined in concert with Dr. Newman. In agreement with the documented findings as noted in the resident documentation with any exceptions or additions as noted here. Resting comfortably in bed with conversational mentation with limited perseveration compared to previous. Politely interactive with some tangential speech. Psychiatry input appreciated for concern for underlying issue - last conversation, will be difficult to ascertain secondary to medical and cultural barriers, may be best at home with close follow up and support but will continue to follow. On examination, S1/S2 nl RRR no MCG. CTAB. Abd NT/ND BS+ve Altered mental status - metabolic encephalopathy with hypoosmolar hyponatremia v. underlying psychiatric issue - trend BMP. Continue fluid restriction. Psychiatry consultation appreciated. Close monitoring. Antipsychotic as noted for agitation. Atrial fibrillation - cardiology consult - convert to amiodarone 200mg BID per recommendation. Continue eliquis, metoprolol. Telemetry monitoring. Recent h/o urinary retention - walden in place. Will need trial of void prior to discharge. Cachexia, protein-calorie malnutrition - trend BMP. Nutritional support Transaminitis - downtrending Rhabdomyolysis - downtrending Else see resident documentation as noted. Subjective Overnight, patient was a little agitated once again so given a sublingual dose of zyprexa which calmed him down. When seen this morning, patient was very pleasant and alert. In the afternoon, nurse mentioned patient had smelly loose stools. No other complaints. Denies fever, chills, abdominal pain, or SOB. Review of Systems Review of Systems: All systems reviewed & are unremarkable except as noted in HPI & below Physical Exam Physical Exam: GENERAL - disheveled, mild distress, much improved, pleasant SKIN - Ecchymosis noted to the LEFT periorbital area. HEAD - NC/AT. Anicteric sclerae. LUNGS - Lungs clear to auscultation bilaterally. No rales, wheezes, rhonchi, or stridor. Chest wall symmetric without accessory muscle use, intercostals retractions, or central cyanosis. CARDIAC - Regular rate and rhythm. No murmur, rubs, or gallops appreciated. ABDOMEN - Normoactive bowel sounds. EXTREMITIES - No clubbing or peripheral cyanosis. No pretibial edema present. PSYCH -Alert and oriented x3 Results & Data Results & Data ([facility]) Vital Signs (Past 12 Hours) Vital Signs Temp Pulse Pulse Resp BP Pulse Ox 11/08/20 11:50 36.5 C 88 18 124/62 93 11/08/20 08:00 36.8 C 68 86 18 131/66 95 11/08/20 03:03 36.7 C 85 19 123/81 97 Resident Activity Tracking Resident Involvement: Resident Care Provided Care Provided: Adult [facility]
[2020-11-08] MEDS ORDERED: OLANZapine ZYDIS 5 MG ORALLY DIS. TAB PO PRN (18:36)
[2020-11-08 23:30] LABS: Cdiff Toxin A+B Negative Cdiff Toxin (Negative)
[2020-11-08 23:31] LABS: Cdiff Antigen Positive
[2020-11-09 07:48] LABS: Hematocrit (blood only) 29.5 % (42-52); Hemoglobin 10.2 g/dL (14.0-18.0); Mean Corpuscular Hgb Conc 34.6 g/dL (32-36); Mean Corpuscular Volume 89.7 fL (80-100); Mean Platelet Volume 8.9 fL (7.4-10.4); Platelet Count 137 K/uL (130-400); RDW Standard Deviation 45.9 fL (36.4-46.3); Red Blood Count 3.29 M/uL (4.7-6.1); White Blood Count 5.36 K/uL (4.8-10.8)
[2020-11-09 07:59] LABS: Alanine Aminotransferase 85 U/L (12-78); Albumin Level 2.2 gm/dl (3.4-5.0); Alkaline Phosphatase 43 U/L (45-117); Aspartate Aminotransferase 49 U/L (15-37); BUN Creatinine Ratio 28.6 (10-20); Bilirubin Direct 0.1 mg/dl (0-0.2); Bilirubin,Total 0.5 mg/dl (0.2-1); Blood Urea Nitrogen 10 mg/dl (7-18); Calcium 7.7 mg/dl (8.5-10.1); Carbon Dioxide 26 mmol/L (21-32); Chloride 101 mmol/L (98-107); Creatinine Clr Calc Pharmacy 203.8 ml/min; Est GFR (African American) > 150.0 ml/min; Est GFR (Non-African American) 138.7 ml/min; Glucose 90 mg/dl (70-99); Magnesium 1.7 mg/dl (1.8-2.4); Phosphorus 3.8 mg/dl (2.5-4.9); Potassium 4.4 mmol/L (3.5-5.1); Sodium 133 mmol/L (136-145); Total Protein 5.3 gm/dl (6.4-8.2)
[2020-11-09] MEDS ORDERED: AMIODARONE 200 MG TAB PO SCH (08:00)
[2020-11-09] MEDS: METOPROLOL SUCC 25MG EXT REL TAB PO SCH (08:56)
[2020-11-09] MEDS: POTASSIUM CHLORIDE PWD 20 MEQ PACK PO SCH (08:56)
[2020-11-09] MEDS: POT PHOSPHATE MONOBASIC W/ SOD TAB PO SCH ×4 (08:57→19:57)
[2020-11-09] MEDS: THIAMINE HCL 100 MG TAB PO SCH (08:57)
[2020-11-09] MEDS: APIXABAN 5 MG TABLET PO SCH ×2 (08:57→19:56)
[2020-11-09] MEDS: CEROVITE ADV FORMULA TAB PO SCH (08:57)
[2020-11-09] MEDS: LIDOCAINE 5% 1 PATCH TD SCH (09:06)
--- NOTE | 2020-11-09 09:57 | Hospitalist Progress Note ---
Date of Service November 09, 2020 Assessment & Plan (1) Hyponatremia: Plan: Mr. Chase is a 55 y/o male with an unknown PMHx admitted to the ICU on 11/03 for altered mental status, a fall, and symptomatic hyponatremia. 1. Altered Mental Status 2/2 Hypoosmolar Hyponatremia -Mentation continuing to improve; nearly resolved, sister says he is still not at baseline -Na at admission: 114 --> 126 --> 130 --> 133 -Received series of NSS boluses and received 3% hypertonic saline in the ICU --> PCU -Nephro has signed off; target 6 - 8 mmol/L correction of serum sodium over 24 hours --> monitoring levels for slow progression, avoid any further 3% or D5 W, increase protein intake; fluid restricted -remove walden at d/c if still in 2. Cachexia/Protein Calorie Malnutrition -Albumin: 2.8 --> 2.4 --> 2.2 -Edematous abdomen secondary to hypoalbuminemia -Nutritional consult appreciated: recommended multivitamin and thiamine due to refeeding syndrome risk; Consulted again for dietary habits (inappropriate fasting) -Replete electrolytes, being weary of possibility of refeeding syndrome -Diet advanced to easy to chew 3. AFib -Occurred while in ICU -Highest HR: 110s -Continue metoprolol succinate 25 mg daily -Converted from AFib 120s to sinus 70s/80s after amiodarone drip, has been sinus since --> consulted cardiology for advice on switching amiodarone to something else that may control his rate. BP was previously too low to add more metoprolol and I worry about discharging patient on amiodarone due to compliance. Consulted cardio who advised to switch amiodarone gtt to 200mg PO BID during hospital stay; I agree. At this point, patient may be discharged tomorrow and BP is higher than before, we will trial the patient off of amiodarone completely and just try the metoprolol succinate 25mg daily. -Echocardiogram unremarkable: EF 55-60%, mild/moderate mitral annular calcification -Switched heparin drip; now on Eliquis 5mg PO BID -Continue to monitor on tele -Downgraded to med/surg 4. Elevated LFTs, resolving -AST: 150 on 11/05 (down from 223 on 11/04 --> 271 on 11/03), ALT: 145 (down from 170 on 11/04 --> 174 on 11/03) -- likely hepatocellular etiologies include viral or toxin; current AST 49, ALT 85, ALP 43 -LDH: 704 on 11/04 -CT A/P not concerning for neoplasm -LFTs rechecked; trending down 5. Delusions -Previous agitation stable since -Spoke to his brother in law on the phone today. Found that patient was living with [place] in [place] environment. Family agrees that patient needs to be in a more stable environment. Family has mixed feelings due to chance on whether or not patient needs to be on psych medication given his mental state which was regarded to as not stable. They have a facility in mind ([facility]) in [place] that has an open spot. They do more natural healing and try to work cognitively with patients instead of using medications. After speaking with psych, it seems like this would be a very suitable facility for our patient. Will call facility tomorrow for more information. Patient likes the idea of this facility and I believe it would be the best solution for Yobani and his family values. 6. Normocytic Anemia -Hgb: 11.6 --> 10.2, MCV: 83.8 -Peripheral smear: "There are no significant spherocytes or schistocytes to suggest a hemolytic anemia. If clinical concern is high, then additional testing to include haptoglobin and a LAMAR are recommended. Potential etiologies of a normocytic anemia include anemia of chronic disease, renal disease, hemorrhage, and nutritional deficiencies." -Stool occult ordered (11/09) to r/o GI bleed especially with new onset diarrhea 7. Rib Fracture -Likely secondary from fall -Lidocaine patch to manage pain as needed 8. Rhabdomyolysis, Resolving -CK: 814 (down from 2539 on 11/05 --> 5040 on 11/04) -Likely secondary to fall -CK last checked 617 9. Hypokalemia, Resolved -K: 4.4 -Continuing repletion (goal of 4) -discontinued potassium chloride 10. Pulmonary Nodule -Incidental findings on CXR -CT Chest: "Multiple calcified pulmonary nodule/granulomas. Noncalcified pulmonary micronodule within left upper lobe. Please note that in presence of high risk factors for pulmonary malignancy, follow-up evaluation for pulmonary nodules measuring less than 6 mm in size in 12 months is optional per Fleischner Society guidelines." 11. Hypoxia, Resolved -Currently 98% on RA 12. Diarrhea -Patient had foul smelling stools today, slightly runny -C. Diff testing --> positive for gene, toxin NEGATIVE; precautions placed DVT PPx: Eliquis FEN/GI: Easy to chew; fluid restriction Code: Full Dispo: Med/surg Admission and Anticipated Discharge Date Admission Date: November 03, 2020 Supervising Physician Co-Signing Physician Notes I personally examined the patient and verified all anthony points of history and exam, discussed case, and agree with decision making with Dr Newman feeling better overall, eating well. discussed family suggestion of a facility in [place] - he likes the idea vitals noted nad heent nc at mmm breathing unlabored no accessory muscles good effort skin no rashes no pallor or icterus Altered mental status - metabolic encephalopathy with hyponatremia - seems to be improving day to day. tolerating PO. follow BMP periodically Atrial fibrillation - rate controlled (converted to nsr) - metoprolol, eliquis. Recent h/o urinary retention - follow Cachexia, protein-calorie malnutrition - trend BMP. Nutritional support. appears to be doing better Transaminitis - downtrending - likely from acute starvation state Rhabdomyolysis - downtrending stable for medical. dispo planning - ?facility in [place] sounds appealing to pt, will have to explore further Subjective Patient states he feels good physically but emotionally angered by one of the nurses the other day. No thoughts to harm self or others. He also has some complaints of diarrhea 2x/day since yesterday, solid but runny. No other complaints. Denies fever, chills, abdominal pain, or SOB. Review of Systems Review of Systems: All systems reviewed & are unremarkable except as noted in HPI & below Physical Exam Physical Exam: GENERAL - disheveled, no acute distress, much improved, pleasant SKIN - Ecchymosis noted to the LEFT periorbital area. HEAD - NC/AT. Anicteric sclerae. LUNGS - Lungs clear to auscultation bilaterally. No rales, wheezes, rhonchi, or stridor. Chest wall symmetric without accessory muscle use, intercostals retractions, or central cyanosis. CARDIAC - Regular rate and rhythm. No murmur, rubs, or gallops appreciated. ABDOMEN - Normoactive bowel sounds. EXTREMITIES - No clubbing or peripheral cyanosis. No pretibial edema present. PSYCH -Alert and oriented x3 Results & Data Results & Data ([facility]) Vital Signs (Past 12 Hours) Vital Signs Temp Pulse Resp BP Pulse Ox 11/09/20 07:51 36.9 C 71 16 110/68 98 11/09/20 03:35 36.8 C 69 18 107/64 96 11/08/20 23:11 36.6 C 79 20 110/67 96 Resident Activity Tracking Resident Involvement: Resident Care Provided Care Provided: Adult Hospital Medicine
--- NOTE | 2020-11-09 17:26 | Psychiatric Consultation ---
Date of Consultation November 09, 2020 Impression / Recommendations Impression This is a 55-year-old male who is a member of the [facility] who presents following an episode of fasting in which patient suffered severe electrolyte abnormalities. Psychiatry was consulted for concern of underlying mental illness which would have prompted the fast. Collateral information seems to reveal that patient does have some odd beliefs at times although has never shown any violence, aggression, severe psychosis, or suicidal tendencies. Of course it is difficult to ascertain what is patient's baseline versus what is part of the lingering delirium from the electrolyte abnormalities. Although patient may benefit from psychiatric medication, the utility of starting psychiatric medication will be questionable especially without appropriate follow-up or patient desire. Psychiatry will continue to follow this case and offer outpatient services as well as medications if so desired, but it is unlikely that patient will meet criteria for involuntary hospitalization at this time. It seems there are some community resources in the [facility] society that patient may benefit from. (1) Altered mental status: Altered mental status type: unspecified Qualified Code(s): R41.82 - Altered mental status, unspecified Continue to collaborate with family on devising appropriate plan for patient's follow-up. No changes to medication regimen at this time Psych History Identifying Data 55-year-old male member of the [facility] [employer] who presents following episode of fasting which caused significant electrolyte abnormalities as well as altered mental status. Psychiatry was consulted for concern for underlying mental health diagnosis. Chief Complaint "I'm feeling better". History of Present Illness HPI as per psychiatric liaison" Patient continues to improve with his mental clarity. States he struggled with sleep last night, which is not common for him. States he may sometimes have trouble falling asleep but not staying asleep. States his appetite has improved and was asking for bananas, a turkey sandwich and maybe a yogurt. Patient is concerned that he is not getting "enough nutrition." Patient scored a 2 on the PHQ9, for not having enough energy and "feeling bad". States he does feel depressed, "especially when people try to get me to drink or eat things I don't want to, like the potassium, that makes me depressed. I'd rather just eat bananas." States he has not taken psych meds in the past and does not want to take meds that he does not need. Denies any suicidal thoughts, denies drugs or alcohol. Did call patient's sister, Sharon, , for collateral. Eye contact is better, remains soft spoken, words more clear. Remains flat affect. Benjamin Flowers, patient's [id number], returned call. States he believes patient was attempting to "detox" to improve his health, but was not strong enough to be able to handle to not eat for 2 weeks. States patient is very "natural minded and prefers organic foods, no chemicals". Does not believe patient was ever suicidal, but does feel he could possibly have mild depression or bipolar. When asked to describe reasoning for the thoughts, he states patient's brothers and sisters thought he might be bipolar. 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 Believes the family classifies patient as a "hermit" and is very independent. Denies any psychotic behaviors that he is aware of." Upon evaluation this afternoon patient is reporting improvement in stating that he feels much better. He was seen eating and endorsed a strong appetite. Patient denied any acute symptoms, denied any psychotic thoughts or paranoia. Denied any audiovisual hallucinations. He denied any depression or suicidal ideation. He denies any drug or alcohol use. His Sister Jocy was also present in the room during the course of the evaluation and stated that the patient had improved although she felt he was not yet at his baseline since he was still slow to respond and talking nonsensically about some topics. She was thankful for the care provided here and thinks that her brother is on the right to becoming better. After the visit sister was questioned alone for concern of underlying mental illness. She did state that the brother has always been focused on organic eating and at times does have some strange beliefs but denies that this that they have ever been violent or aggressive or suicidal. Furthermore she states that this is the most acute she is ever seen his mental status." Allergies Allergy/AdvReac Type Severity Reaction Status Date / Time Unable to Assess Allergy Unverified 11/03/20 20:04 Home Medications Medication Instructions Recorded Confirmed Type No Known Home Medications 11/03/20 11/03/20 History Personal History Beliefs That Will Affect Care: Zoroastrianism and Cultural Patient History Medical History No pertinent past medical history Surgical History No pertinent past surgical history Social History Smoking Status: Never smoker Second Hand Exposure: No; Do You Dip or Chew Tobacco: No; Hx Alcohol Use: No Hx Substance Use: No Communication Ability: Impaired Internal Control Consultant Required: No Beliefs That Will Affect Care: Zoroastrianism and Cultural marital status: Single Current Living Situation: Spouse and Family Feels Safe at Home: Yes Safety Concerns: Feels Safe At This Time Assistive Devices: None Physical Exam Psychiatric: Orientation: alert and oriented to person Apperance: appropriately groomed Eye Contact: + fair eye contact Motor Behavior: no abnormal motor movements Speech: normal rate/rhythm/volume of speech Affect: + flat affect Mood: no depressed mood Thought Process: goal directed thought process and + concrete thought process Thought Content: + preoccupation Suicidal Thoughts: denies suicidal thoughts Homicidal Thoughts: denies homicidal thoughts Hallucinations: no auditory hallucinations and no visual hallucinations improved from prior but not at baseline Estimated Intelligence: consistent with education level Insight: + limited insight Judgement: + limited judgement Vital Signs (Past 24 Hours): Last Vital Signs Temp 36.9 C 11/09/20 15:44 Pulse 77 11/09/20 15:48 Resp 16 11/09/20 15:44 BP 142/89 H 11/09/20 15:44 Pulse Ox 98 11/09/20 15:44 Review of Systems All systems reviewed & are unremarkable except as noted in HPI & below Results & Data ([facility]) Medications Administered Apixaban (Apixaban 5 Mg Tablet) 5 mg PO BID ALMITA Stop: 12/07/20 12:29 Last Admin: 11/09/20 08:57 Dose: 5 mg Documented by: [id number] Admin: 11/08/20 20:14 Dose: 5 mg Documented by: [id number] Admin: 11/08/20 09:10 Dose: 5 mg Documented by: [id number] Admin: 11/07/20 20:44 Dose: 5 mg Documented by: [id number] Admin: 11/07/20 13:56 Dose: 5 mg Documented by: [id number] Lidocaine (Lidocaine 5% 1 Patch) 1 patch TD QAM [facility] Stop: 12/05/20 08:59 Last Admin: 11/09/20 09:06 Dose: 1 patch Documented by: [id number] Admin: 11/08/20 09:11 Dose: Not Given Documented by: [id number] Admin: 11/07/20 08:16 Dose: Not Given Documented by: [id number] Admin: 11/06/20 09:47 Dose: Not Given Documented by: [id number] Admin: 11/05/20 08:20 Dose: 1 patch Documented by: [id number] Metoprolol Succinate (Metoprolol Succ 25mg Ext Rel Tab) 25 mg PO QAM [facility] Stop: 12/06/20 08:59 Last Admin: 11/09/20 08:56 Dose: 25 mg Documented by: [id number] Admin: 11/08/20 09:10 Dose: 25 mg Documented by: [id number] Admin: 11/07/20 08:14 Dose: 25 mg Documented by: [id number] Admin: 11/06/20 09:00 Dose: 25 mg Documented by: [id number] Miscellaneous (Remove Lidoderm Patch) 1 ea N/A [id number] [facility] Stop: 12/04/20 20:59 Last Admin: 11/08/20 20:15 Dose: Not Given Documented by: [id number] Admin: 11/07/20 20:45 Dose: Not Given Documented by: [id number] Admin: 11/06/20 21:27 Dose: Not Given Documented by: [id number] Admin: 11/05/20 21:00 Dose: 1 ea Documented by: [id number] Admin: 11/04/20 22:03 Dose: Not Given Documented by: [id number] Multivitamins/Minerals (Cerovite Adv Formula Tab) 1 tab PO QAM [facility] Stop: 12/06/20 08:59 Last Admin: 11/09/20 08:57 Dose: 1 tab Documented by: [id number] Admin: 11/08/20 09:10 Dose: 1 tab Documented by: [id number] Admin: 11/07/20 08:14 Dose: 1 tab Documented by: [id number] Admin: 11/06/20 09:00 Dose: 1 tab Documented by: [id number] Potassium Phosphate (Pot Phosphate Monobasic W/ Sod Tab) 1 tab PO QID [facility] Stop: 12/05/20 08:59 Last Admin: 11/09/20 12:05 Dose: 1 tab Documented by: [id number] Admin: 11/09/20 08:57 Dose: 1 tab Documented by: [id number] Admin: 11/08/20 20:14 Dose: 1 tab Documented by: [id number] Admin: 11/08/20 16:34 Dose: 1 tab Documented by: [id number] Admin: 11/08/20 12:31 Dose: 1 tab Documented by: [id number] Admin: 11/08/20 09:10 Dose: 1 tab Documented by: [id number] Admin: 11/07/20 20:44 Dose: 1 tab Documented by: [id number] Admin: 11/07/20 18:15 Dose: 1 tab Documented by: [id number] Admin: 11/07/20 13:56 Dose: 1 tab Documented by: [id number] Admin: 11/07/20 08:14 Dose: 1 tab Documented by: [id number] Admin: 11/06/20 21:05 Dose: 1 tab Documented by: [id number] Admin: 11/06/20 17:31 Dose: 1 tab Documented by: [id number] Admin: 11/06/20 13:05 Dose: 1 tab Documented by: [id number] Admin: 11/06/20 09:00 Dose: 1 tab Documented by: [id number] Admin: 11/05/20 20:12 Dose: 1 tab Documented by: [id number] Admin: 11/05/20 17:37 Dose: 1 tab Documented by: [id number] Admin: 11/05/20 12:28 Dose: 1 tab Documented by: [id number] Admin: 11/05/20 08:25 Dose: 1 tab Documented by: [id number] Thiamine HCl (Thiamine Hcl 100 Mg Tab) 100 mg PO QAM [facility] Stop: 12/06/20 08:59 Last Admin: 11/09/20 08:57 Dose: 100 mg Documented by: [id number] Admin: 11/08/20 09:10 Dose: 100 mg Documented by: [id number] Admin: 11/07/20 08:14 Dose: 100 mg Documented by: [id number] Admin: 11/06/20 09:00 Dose: 100 mg Documented by: [id number] Coding Level of Care Code 94985 BHU Intl Hosp Care Lvl 2 Diagnoses Altered mental status R41.82 Altered mental status type: unspecified
--- NOTE | 2020-11-09 17:57 | Billing Data ---
Date of Service November 09, 2020 Coding Level of Care Code 37252 Subseq Hosp Care Lvl 3
[2020-11-10 06:54] LABS: Hematocrit (blood only) 30.2 % (42-52); Hemoglobin 10.6 g/dL (14.0-18.0); Mean Corpuscular Hemoglobin 31.5 pg (25-34); Mean Corpuscular Hgb Conc 35.1 g/dL (32-36); Mean Corpuscular Volume 89.9 fL (80-100); Mean Platelet Volume 8.7 fL (7.4-10.4); Platelet Count 140 K/uL (130-400); RDW Coefficient of Variation 14.1 % (11.5-14.5); RDW Standard Deviation 46.6 fL (36.4-46.3); Red Blood Count 3.36 M/uL (4.7-6.1); White Blood Count 6.01 K/uL (4.8-10.8)
[2020-11-10 07:42] LABS: BUN Creatinine Ratio 25.3 (10-20); Blood Urea Nitrogen 10 mg/dl (7-18); Carbon Dioxide 27 mmol/L (21-32); Chloride 102 mmol/L (98-107); Creatinine Clr Calc Pharmacy 178.1 ml/min; Est GFR (African American) > 150.0 ml/min; Est GFR (Non-African American) 131.4 ml/min; Glucose 86 mg/dl (70-99); Magnesium 2.1 mg/dl (1.8-2.4); Phosphorus 3.8 mg/dl (2.5-4.9); Potassium 4.3 mmol/L (3.5-5.1); Sodium 132 mmol/L (136-145)
[2020-11-10] MEDS: CEROVITE ADV FORMULA TAB PO SCH (08:12)
[2020-11-10] MEDS: METOPROLOL SUCC 25MG EXT REL TAB PO SCH (08:13)
[2020-11-10] MEDS: POT PHOSPHATE MONOBASIC W/ SOD TAB PO SCH ×4 (08:13→20:15)
[2020-11-10] MEDS: APIXABAN 5 MG TABLET PO SCH ×2 (08:13→20:15)
[2020-11-10] MEDS: THIAMINE HCL 100 MG TAB PO SCH (08:13)
[2020-11-10] MEDS: LIDOCAINE 5% 1 PATCH TD SCH (08:21)
--- NOTE | 2020-11-10 16:19 | Hospitalist Progress Note ---
Date of Service November 10, 2020 Assessment & Plan (1) Hyponatremia: Plan: Mr. Chase is a 55 y/o male with an unknown PMHx admitted to the ICU on 11/03 for altered mental status, a fall, and symptomatic hyponatremia. 1. Altered Mental Status 2/2 Hypoosmolar Hyponatremia -Mentation continuing to improve; nearly resolved, sister says he is still not at baseline -Na at admission: 114 --> 126 --> 130 --> 133 --> 132 -Received series of NSS boluses and received 3% hypertonic saline in the ICU --> PCU -Nephro has signed off; target 6 - 8 mmol/L correction of serum sodium over 24 hours --> monitoring levels for slow progression, avoid any further 3% or D5 W, increase protein intake; fluid restricted -remove walden at d/c if still in 2. Cachexia/Protein Calorie Malnutrition -Albumin: 2.8 --> 2.4 --> 2.2 -Edematous abdomen secondary to hypoalbuminemia -Nutritional consult appreciated: recommended multivitamin and thiamine due to refeeding syndrome risk; Consulted again for dietary habits (inappropriate fasting) -Replete electrolytes, being weary of possibility of refeeding syndrome -Diet advanced to easy to chew 3. AFib -Occurred while in ICU -Highest HR: 110s -Continue metoprolol succinate 25 mg daily -Converted from AFib 120s to sinus 70s/80s after amiodarone drip, has been sinus since --> consulted cardiology for advice on switching amiodarone to something else that may control his rate. BP was previously too low to add more metoprolol and I worry about discharging patient on amiodarone due to compliance. Consulted cardio who advised to switch amiodarone gtt to 200mg PO BID during hospital stay; I agree. At this point, patient may be discharged soon and BP is higher than before, we will trial the patient off of amiodarone completely and just try the metoprolol succinate 25mg daily --> metoprolol 25mg doing well for patient and controlling rate/rhythm thus far. Will most likely continue this regimen outpatient. -Echocardiogram unremarkable: EF 55-60%, mild/moderate mitral annular calcification -Switched heparin drip; now on Eliquis 5mg PO BID -Downgraded to med/surg 4. Elevated LFTs, resolving -AST: 150 on 11/05 (down from 223 on 11/04 --> 271 on 11/03), ALT: 145 (down from 170 on 11/04 --> 174 on 11/03) -- likely hepatocellular etiologies include viral or toxin; current AST 49, ALT 85, ALP 43 -LDH: 704 on 11/04 -CT A/P not concerning for neoplasm -LFTs rechecked; trending down 5. Delusions -Previous agitation stable since 11/09- Spoke to his brother in law on the phone today. Found that patient [place] in [place]. Family agrees that patient needs to be in a more stable environment. Family has mixed feelings due to chance on whether or not patient needs to be on psych medication given his mental state which was regarded to as not stable. They have a facility in mind ([facility]) in [place] that has an open spot. They do more natural healing and try to work cognitively with patients instead of using medications. After speaking with psych, it seems like this would be a very suitable facility for our patient. Will call facility tomorrow for more information. Patient likes the idea of this facility and I believe it would be the best solution for Yobani and his family values. 11/10- Spoke to Benjamin again today. I discussed with him that this rehab facility in [place] may be the best option for the patient at this time. He would like to have a meeting with the family and our medicine team tomorrow morning so we can discuss the plan and decide if this is the best option for Yobani. We will meet with them tomorrow. If everything goes as planned, we can discharge the patient tomorrow to his family. 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 6. Normocytic Anemia -Hgb: 11.6 --> 10.2 --> 10.6, MCV: 83.8 -Peripheral smear: "There are no significant spherocytes or schistocytes to suggest a hemolytic anemia. If clinical concern is high, then additional testing to include haptoglobin and a LAMAR are recommended. Potential etiologies of a normocytic anemia include anemia of chronic disease, renal disease, hemorrhage, and nutritional deficiencies." -Stool occult ordered (11/09) to r/o GI bleed especially with new onset diarrhea, pending 7. Rib Fracture -Likely secondary from fall -Lidocaine patch to manage pain as needed 8. Rhabdomyolysis, Resolving -CK: 814 (down from 2539 on 11/05 --> 5040 on 11/04) -Likely secondary to fall -CK last checked 617 9. Hypokalemia, RESOLVED -K: 4.3 -Continuing repletion (goal of 4) -discontinued potassium chloride 10. Pulmonary Nodule -Incidental findings on CXR -CT Chest: "Multiple calcified pulmonary nodule/granulomas. Noncalcified pulmonary micronodule within left upper lobe. Please note that in presence of high risk factors for pulmonary malignancy, follow-up evaluation for pulmonary nodules measuring less than 6 mm in size in 12 months is optional per Fleischner Society guidelines." 11. Hypoxia, RESOLVED -Currently 98% on RA 12. Diarrhea- RESOLVED -Patient had foul smelling stools, slightly runny -C. Diff testing --> positive for gene, toxin NEGATIVE; precautions placed DVT PPx: Eliquis FEN/GI: Easy to chew; fluid restriction Code: Full Dispo: Med/surg Admission and Anticipated Discharge Date Admission Date: November 03, 2020 Supervising Physician Co-Signing Physician Notes I personally examined the patient and verified all anthony points of history and exam, discussed case, and agree with decision making with Dr Newman Eating well. No new complaints. Was able to walk a lap around the hallway with us using a walker. vitals noted nad heent nc at mmm breathing unlabored no accessory muscles good effort skin no rashes no pallor or icterus, slow but steady gait using walker, very slow shuffling gait without walker, but overall stable on his feet. Altered mental status - metabolic encephalopathy with hyponatremia -continues to improve each day. tolerating PO. follow BMP periodically, anticipate his hyponatremia to probably stay a little bit of a slowly rising "slightly below normal" and then with prolonged good p.o. intake, anticipate improvement. Atrial fibrillation - rate controlled (converted to nsr) -continue metoprolol, and eliquis. Recent h/o urinary retention - follow, but does not seem to be in overt issue at this time Cachexia, protein-calorie malnutrition - trend BMP. Nutritional support. appears to be doing better with p.o. intake Transaminitis - downtrending - likely from acute starvation state Rhabdomyolysis - downtrending dispo planning -with ongoing discussions with patient and family, it sounds that this facility in [place] will likely be a good fit. Family will be coming tomorrow, we will discuss the situation further with them then, but it sounds as though things may be set up to get him out of the hospital as soon as tomorrow. Subjective Patient improving each day. Not much diarrhea anymore. No other complaints. Denies fever, chills, abdominal pain, or SOB. Review of Systems Review of Systems: All systems reviewed & are unremarkable except as noted in HPI & below Physical Exam Physical Exam: GENERAL - disheveled, no acute distress, much improved, pleasant HEAD - Anicteric sclerae. LUNGS - Lungs clear to auscultation bilaterally. No rales, wheezes, rhonchi, or stridor. Chest wall symmetric without accessory muscle use, intercostals retractions, or central cyanosis. CARDIAC - Regular rate and rhythm. No murmur, rubs, or gallops appreciated. ABDOMEN - Normoactive bowel sounds. EXTREMITIES - No clubbing or peripheral cyanosis. No pretibial edema present. PSYCH -Alert and oriented x3 Results & Data Results & Data ([place]) Vital Signs (Past 12 Hours) Vital Signs Temp Pulse Pulse Resp BP Pulse Ox 11/10/20 10:54 36.9 C 77 18 119/82 98 11/10/20 08:00 67 11/10/20 07:56 36.4 C L 80 20 123/73 100 Resident Activity Tracking Resident Involvement: Resident Care Provided Care Provided: Adult Hospital Medicine
--- NOTE | 2020-11-10 17:30 | Billing Data ---
Date of Service November 10, 2020 Coding Level of Care Code 73629 Subseq Hosp Care Lvl 2
[2020-11-11 08:14] LABS: BUN Creatinine Ratio 30.8 (10-20); Calcium 8.6 mg/dl (8.5-10.1); Est GFR (Non-African American) 127.7 ml/min; Magnesium 2.2 mg/dl (1.8-2.4); Phosphorus 3.6 mg/dl (2.5-4.9); Potassium 3.8 mmol/L (3.5-5.1)
[2020-11-11] MEDS: METOPROLOL SUCC 25MG EXT REL TAB PO SCH (10:03)
[2020-11-11] MEDS: THIAMINE HCL 100 MG TAB PO SCH (10:04)
[2020-11-11] MEDS: APIXABAN 5 MG TABLET PO SCH (10:05)
[2020-11-11] MEDS: POT PHOSPHATE MONOBASIC W/ SOD TAB PO SCH ×2 (10:05→12:31)
[2020-11-11] MEDS: LIDOCAINE 5% 1 PATCH TD SCH (10:06)
[2020-11-11] MEDS: CEROVITE ADV FORMULA TAB PO SCH (10:06)
--- NOTE | 2020-11-11 13:26 | Discharge Summary ---
Date of Service November 11, 2020 Admission HPI Per Admitting Provider Yobani Chase 55y/o male with unknown past medical history; who presents following a fall with altered mental status and severe hyponatremia. Per report from family, patient had been apparently fasting over the last two weeks "in attempt to detoxify his body"; he reportedly has done this before and at times when he does this he will consume juices and water but over this last two weeks he had not been seen or talked to his family until Monday of last week when he told them he was starting to feel unwell. They did not further know or clarify what was going on that caused him to feel unwell. In the ED he continued to be lethargic and sedate with arousability to painful stimuli. Was able to complete some sentences prior to falling back to sleep but these were somewhat incoherent. Discussed code status with family at bedside, who indicated they have no knowledge of what his wishes would be but belief he would want everything done. Principal Diagnosis Altered Mental Status secondary to Hypoosmolar Hyponatremia Discharge Exam GENERAL - disheveled, no acute distress, much improved, pleasant HEAD - Anicteric sclerae. LUNGS - Lungs clear to auscultation bilaterally. No rales, wheezes, rhonchi, or stridor. Chest wall symmetric without accessory muscle use, intercostals retractions, or central cyanosis. CARDIAC - Regular rate and rhythm. No murmur, rubs, or gallops appreciated. ABDOMEN - Normoactive bowel sounds. EXTREMITIES - No clubbing or peripheral cyanosis. No pretibial edema present. PSYCH -Alert and oriented x3 Discharge Data Allergies Allergy/AdvReac Type Severity Reaction Status Date / Time Unable to Assess Allergy Unverified 11/03/20 20:04 Consultations 11/03/20 22:32 ED Decision to Admit Stat 11/04/20 00:15 Consult [employer] Manager Routine 11/04/20 04:19 Consult Nephrology Routine 11/04/20 16:33 Consult Psychiatry Routine 11/07/20 14:39 Consult Cardiology Routine Ordered Studies 11/03/20 19:53 CT cervical spine wo con Urgent CT facial bones wo con Urgent CT head/brain wo con Urgent 11/04/20 07:33 CT chest diagnostic w con Routine 11/04/20 16:33 CT abd pelvis IV con only Routine Hospital Course (1) Hyponatremia: Mr. Chase is a 55 y/o male with an unknown PMHx admitted to the ICU on 11/03 for altered mental status, a fall, and symptomatic hyponatremia. 1. Altered Mental Status 2/2 Hypoosmolar Hyponatremia -Mentation continuing to improve; nearly resolved, sister says he is still not at baseline -Na at admission: 114 --> 126 --> 130 --> 133 --> 132 --> 134 -Received series of NSS boluses and received 3% hypertonic saline in the ICU --> PCU -Nephro has signed off; target 6 - 8 mmol/L correction of serum sodium over 24 hours --> monitoring levels for slow progression, avoid any further 3% or D5 W, increase protein intake; fluid restricted -Patient now alert and per family at baseline; most improved today 2. Cachexia/Protein Calorie Malnutrition -Albumin: 2.8 --> 2.4 --> 2.2 -Edematous abdomen secondary to hypoalbuminemia -Nutritional consult appreciated: recommended multivitamin and thiamine due to refeeding syndrome risk; Consulted again for dietary habits (inappropriate fasting) -Replete electrolytes, being weary of possibility of refeeding syndrome -Diet advanced to easy to chew 3. AFib -Occurred while in ICU -Highest HR: 110s -Continued metoprolol succinate 25 mg daily -Converted from AFib 120s to sinus 70s/80s after amiodarone drip, has been sinus since --> consulted cardiology for advice on switching amiodarone to something else that may control his rate. BP was previously too low to add more metoprolol and I worry about discharging patient on amiodarone due to compliance. Consulted cardio who advised to switch amiodarone gtt to 200mg PO BID during hospital stay; I agree. At this point, patient may be discharged soon and BP is higher than before, we will trial the patient off of amiodarone completely and just try the metoprolol succinate 25mg daily --> metoprolol 25mg doing well for patient and controlling rate/rhythm thus far. Will most likely continue this regimen outpatient. -Echocardiogram unremarkable: EF 55-60%, mild/moderate mitral annular calcification -Switched heparin drip; now on Eliquis 5mg PO BID -Downgraded to med/surg -Patient will be discharged on Eliquis and Metoprolol for control. Worry about medication compliance but explained to his family that these medications would be the most beneficial for the patient's health and to avert stroke. 4. Elevated LFTs, resolving -AST: 150 on 11/05 (down from 223 on 11/04 --> 271 on 11/03), ALT: 145 (down from 170 on 11/04 --> 174 on 11/03) -- likely hepatocellular etiologies include viral or toxin; current AST 49, ALT 85, ALP 43 -LDH: 704 on 11/04 -CT A/P not concerning for neoplasm -LFTs rechecked; trended down 5. Delusions -Previous agitation stable since 11/09- Spoke to his brother in law on the phone today. Found that patient was living with his parents on a farm in a stressful environment. Family agrees that patient needs to be in a more stable environment. Family has mixed feelings due to chacne on whether or not patient needs to be on psych medication given his mental state which was regarded to as not stable. They have a facility in mind ([facility] in [place] that has an open spot. They do more natural healing and try to work cognitively with patients instead of using medications. After speaking with psych, it seems like this would be a very suitable facility for our patient. Will call facility tomorrow for more information. Patient likes the idea of this facility and I believe it would be the best solution for Yobani and his family values. 11/10- Spoke to Bejnamin again today. I discussed with him that this rehab facility in [place] may be the best option for the patient at this time. He would like to have a meeting with the family and our medicine team tomorrow morning so we can discuss the plan and decide if this is the best option for Yobani. We will meet with them tomorrow. If everything goes as planned, we can discharge the patient tomorrow to his family. 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 11/11- spoke with his family today who came to the hospital to discuss patient's plans for after discharge. [facility]iscussed that [facility] a great place for the patient to continue his care. He will be in a stable environment that focuses on holistic medicine, something the patient is very interested in. Family agrees with decision. Family will be taking him directly to the facility after discharge. 6. Normocytic Anemia -Hgb: 11.6 --> 10.2 --> 10.6, MCV: 83.8 -Peripheral smear: "There are no significant spherocytes or schistocytes to suggest a hemolytic anemia. If clinical concern is high, then additional testing to include haptoglobin and a LAMAR are recommended. Potential etiologies of a normocytic anemia include anemia of chronic disease, renal disease, hemorrhage, and nutritional deficiencies." -Stool occult ordered (11/09) to r/o GI bleed especially with new onset diarrhea, negative -Hgb improving, stable 7. Rib Fracture -Likely secondary from fall -Lidocaine patch to manage pain as needed -No complaints of rib pain 8. Rhabdomyolysis, Resolving -CK: 814 (down from 2539 on 11/05 --> 5040 on 11/04) -Likely secondary to fall -CK last checked 617, stable 9. Hypokalemia, RESOLVED -K: 4.3 -Continuing repletion (goal of 4) -discontinued potassium chloride 10. Pulmonary Nodule -Incidental findings on CXR -CT Chest: "Multiple calcified pulmonary nodule/granulomas. Noncalcified pulmonary micronodule within left upper lobe. Please note that in presence of high risk factors for pulmonary malignancy, follow-up evaluation for pulmonary nodules measuring less than 6 mm in size in 12 months is optional per Fleischner Society guidelines." 11. Diarrhea- RESOLVED -Patient had foul smelling stools, slightly runny -C. Diff testing --> positive for gene, toxin NEGATIVE; precautions were placed Total Time Total Time Spent Total Time Spent (In Minutes): <30 Discharge Plan Discharge Items Patient Disposition: Home - Self-Care Reason For Visit: SEVERE HYPONATREMIA WITH AMS Discharge Diagnosis: hyponatremia Activity: Per Instructions section Non-emergency contact: Primary Care Provider Call non-emergency contact if: you have any medication questions Follow-up/Referrals: PCP,NO [Primary Care Provider] - Diet: Regular Addtl Attending Provider Instructions: You were seen and admitted for concerns for your sodium levels being too low. Now that we have been able to get your levels better stabilized and you are doing well with eating, it is safe to get you out of the hospital at this point in time. As discussed with you and your family, would expect that you will benefit from working with the therapists at the program in [place]. As you are being discharged, there are two medications that you should continue to take on a daily basis to protect your heart. These include: metoprolol and Eliquis. The metoprolol is to prevent your heart from going into a different rhythm, and the Eliquis is limit your chances of causing your heart from developing clots that could cause strokes. Pending Studies at Discharge: No Stand-Alone Forms: My [facility] Medications and DC Order Prescriptions: New metoprolol succinate 25 mg Tablet Extended Release 24 Hr 25 mg PO QAM 30 Days Qty: 30 RF: 0 Eliquis 5 mg Tablet 5 mg PO BID 30 Days Qty: 60 RF: 0 No Action No Known Home Medications RF: 0 Discharge Orders: Discharge Order (Routine); Ordered 11/11/20 Ordered By: Sampson Vanegas/Other Patient Handouts: Understanding Atrial Fibrillation Admission Data Admit Date/Time: 11/03/20 23:00 Attending Provider: Saran Lira Admit Provider: Sampson Umanzor Primary Care Provider: PCP,NO Other Providers: Jocy Zaragoza ; Luc Aguirre ; Bakari Palacios ; Manju Ventura ; Dr Alfredo ; Meghan Fuchs ; Glen Marquez ; David Pinon Other Interventions: Discharge Summary Assessment (RN) Last Done: 11/11/20 11:30 Supervising Physician Co-Signing Physician Notes I personally examined the patient and verified all anthony points of history and exam, discussed case, and agree with decision making with Dr Newman Feels up to getting out of the hospital. No new complaints otherwise. vitals noted nad heent nc at mmm breathing unlabored no accessory muscles good effort skin no rashes no pallor or icterus, no focal neuro deficits. Altered mental status - metabolic encephalopathy with hyponatremia -overall improved. tolerating PO. follow BMP periodically, anticipate his hyponatremia to probably stay a little bit of a slowly rising "slightly below normal" and then with prolonged good p.o. intake, anticipate improvement to normal over time with prolonged adequate p.o. intake. Atrial fibrillation - rate controlled (converted to nsr) -continue metoprolol, and eliquis. Recent h/o urinary retention - follow, but does not seem to be in overt issue at this time Cachexia, protein-calorie malnutrition - appears to be doing better with p.o. intake, periodic outpatient follow-up Transaminitis - downtrending - likely from acute starvation state, outpatient follow-up Rhabdomyolysis -essentially resolved Stable for discharge, will be going to facility in [place] with family. Resident Activity Tracking Resident Involvement: Resident Care Provided Care Provided: Adult Hospital Medicine
--- NOTE | 2020-11-11 17:58 | Billing Data ---
Date of Service November 11, 2020 Coding Level of Care Code D/C DAY MANAGEMENT <30 MINS
== END 2020-11-11 13:10 | disposition home or self-care (01) | DRG 640 ==
LOC: ED 19:18 → SUATTDRO 23:00 → 1E 23:00 → 2S 11-05 14:40 → 3W 11-10 07:39